=== PATIENT | female | born 1955 | race Native Hawaiian/Other Pacific Islander ===

== ENCOUNTER 2017-10-26 22:39 | Inpatient (IN) | payer OTHER ==
--- NOTE | 2017-10-26 22:55 | C.PDOC ---
History Of Present Illness 62 yo female, hx of htn, hld, ckd, sent by pmd for high k. as per pt had lab work few days back , K 7.5 with increasing cr. sent by pmd. no currentl complaints. no pain fever abd pain. pt still makes urine. Time Seen by Provider: 10/26/17 22:49 Chief Complaint (Nursing): Medical Clearance Past Medical History Vital Signs: Last Vital Signs Temp 98.2 F 10/27/17 08:53 Pulse 82 10/27/17 08:53 Resp 20 10/27/17 08:53 BP 158/72 H 10/27/17 08:53 Pulse Ox 99 10/27/17 08:53 - Medical History PMH: Bronchitis, HTN, Chronic Kidney Disease Family History: States: Unknown Family Hx - Social History Hx Tobacco Use: No Hx Alcohol Use: Yes Hx Substance Use: No - Immunization History Hx Tetanus Toxoid Vaccination: Yes Hx Influenza Vaccination: Yes Hx Pneumococcal Vaccination: No ED Course And Treatment - Laboratory Results Result Diagrams: 10/26/17 23:11 10/27/17 09:00 O2 Sat by Pulse Oximetry: 99 Medical Decision Making Medical Decision Making: reported hyperk wiht increasing cr - labs pending ekg nsr 71 no peaked t, normal intervals Disposition - Disposition Disposition: HOSPITALIZED Disposition Time: 01:00 Condition: STABLE - Clinical Impression Clinical Impression: Acute kidney injury superimposed on chronic kidney disease, Hyperkalemia Decision To Admit - Pt Status Changed To: Hospital Disposition Of: Inpatient - Admit Certification Admit to Inpatient:: After my assessment, the patient will require hospitalization for at least two midnights. This is because of the severity of symptoms shown, intensity of services needed, and/or the medical risk in this patient being treated as an outpatient. - InPatient: Physician Admission Certification: I certify that this patient requires 2 or more midnights of care for the following reason:: pt wih hyperk needs repeat labs and renal - . Bed Request Type: Telemetry Admitting Physician: Destiny Osullivan Patient Diagnosis: Acute kidney injury superimposed on chronic kidney disease, Hyperkalemia
[2017-10-26 23:16] LABS: BASO # 0.1 K/uL (0.0-0.2); BASO % 0.9 % (0.0-2.0); EOS # 0.4 K/uL (0.0-0.7); EOS % 5.5 % (0.0-4.0); HEMOGLOBIN 9.4 g/dL (11.0-16.0); LYMPH # 2.6 K/uL (1.0-4.3); LYMPH % 33.9 % (20.0-40.0); MEAN CELL VOLUME 93.5 fL (81.0-99.0); MEAN CORPUSCULAR HEMOGLOBIN 30.8 pg (27.0-31.0); MEAN CORPUSCULAR HGB CONC 32.9 g/dL (33.0-37.0); MEAN PLATELET VOLUME 8.6 fL (7.2-11.7); MONO # 0.5 K/uL (0.0-0.8); MONO % 5.9 % (0.0-10.0); NEUT # 4.2 K/uL (1.8-7.0); NEUT % 53.8 % (50.0-75.0); NRBC % 0.1 % (0.0-2.0); RBC 3.05 Mil/uL (3.80-5.20); RED CELL DISTRIBUTION WIDTH 14.1 % (11.5-14.5); WHITE BLOOD COUNT 7.8 K/uL (4.8-10.8)
[2017-10-26 23:33] LABS: INR 0.9; PROTHROMBIN TIME 10.4 SECONDS (9.7-12.2)
[2017-10-27] MEDS ORDERED: Dextrose 50% SYRINGE Inj (50 ml) IV STA (00:21)
[2017-10-27] MEDS ORDERED: (Novolin R) Insulin Human Regular 100 units/ml vial IV STA (00:21)
[2017-10-27 00:22] LABS: ALB/GLOB RATIO 1.1 (1.0-2.1); ALBUMIN 4.4 g/dL (3.5-5.0); CALCIUM 8.7 mg/dl (8.6-10.4)
[2017-10-27] MEDS ORDERED: Sod Polystyrene Sulf 15 gm/60 ml Susp PO ONE (00:22)
[2017-10-27] MEDS ORDERED: (Novolin R) Insulin Human Regular 100 units/ml vial ONE (00:36)
[2017-10-27] MEDS ORDERED: Dextrose 50% VIAL Inj (50 ml) IV ONE (00:36)
--- NOTE | 2017-10-27 00:43 | CP.PCM.HP ---
History of Present Illness - History of Present Illness History of Present Illness: 62 y.o. 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 Present on Admission - Present on Admission Any Indicators Present on Admission: No History of DVT/PE: No History of Uncontrolled Diabetes: No Urinary Catheter: No Decubitus Ulcer Present: No Review of Systems - Constitutional Constitutional: absent: Anorexia, Chills, Weight Loss, Weakness - EENT Eyes: absent: Blurred Vision, Other Visual Disturbances Ears: absent: Ear Pain Nose/Mouth/Throat: absent: Nasal Congestion - Cardiovascular Cardiovascular: absent: Chest Pain, Dyspnea, Rapid Heart Rate, Slow Heart Rate, Syncope - Respiratory Respiratory: absent: Cough, Hemoptysis, Dyspnea on Exertion - Gastrointestinal Gastrointestinal: absent: Abdominal Pain, Constipation, Cramping, Diarrhea, Vomiting - Genitourinary Genitourinary: absent: Difficulty Urinating, Hematuria, Bladder Distension - Musculoskeletal Musculoskeletal: absent: Abnormal Gait, Atrophy, Numbness - Integumentary Integumentary: absent: Bleeding Lesions, Rash, Skin Ulcer, Sores - Neurological Neurological: absent: Abnormal Gait, Abnormal Hearing, Abnormal Speech, Behavioral Changes, Convulsions, Disequilibrium - Psychiatric Psychiatric: absent: Behavioral Changes, Confusion, Depression - Endocrine Endocrine: absent: Polydipsia, Polyphagia, Polyuria - Hematologic/Lymphatic Hematologic: absent: Easy Bleeding, Easy Bruising Past Patient History - Infectious Disease Hx of Infectious Diseases: None - Past Medical History & Family History Past Medical History?: Yes - Past Social History Smoking Status: Never Smoked Chewing Tobacco Use: No Cigar Use: No Alcohol: Social Home Situation {Lives}: With Family - CARDIAC Hx Hypertension: Yes - PULMONARY Hx Bronchitis: Yes - NEUROLOGICAL Hx Neurological Disorder: No - HEENT Hx HEENT Problems: Yes Other/Comment: wear eyeglasse for poor vision - RENAL Hx Chronic Kidney Disease: Yes - ENDOCRINE/METABOLIC Hx Endocrine Disorders: No - HEMATOLOGICAL/ONCOLOGICAL Hx Blood Disorders: No - INTEGUMENTARY Hx Dermatological Problems: No - MUSCULOSKELETAL/RHEUMATOLOGICAL Hx Musculoskeletal Disorders: Yes Hx Falls: Yes (4YRS AGO) - GASTROINTESTINAL Hx Gastrointestinal Disorders: No - GENITOURINARY/GYNECOLOGICAL Hx Genitourinary Disorders: No - PSYCHIATRIC Hx Substance Use: No - SURGICAL HISTORY Hx Surgeries: Yes Hx Tubal Ligation: Yes Other/Comment: fibroadenoma left and right surgey - ANESTHESIA Hx Anesthesia: Yes Hx Anesthesia Reactions: No Meds Allergies/Adverse Reactions: Allergies Allergy/AdvReac Type Severity Reaction Status Date / Time Penicillins Allergy RASH Verified 10/26/17 22:48 Physical Exam - Constitutional Appears: Non-toxic, No Acute Distress - Head Exam Head Exam: ATRAUMATIC, NORMOCEPHALIC - Eye Exam Eye Exam: Normal appearance. absent: Nystagmus - ENT Exam ENT Exam: Mucous Membranes Moist - Neck Exam Neck exam: Positive for: Full Rom. Negative for: Tenderness - Respiratory Exam Respiratory Exam: Clear to Auscultation Bilateral, NORMAL BREATHING PATTERN - Cardiovascular Exam Cardiovascular Exam: REGULAR RHYTHM, Systolic Murmur - GI/Abdominal Exam GI & Abdominal Exam: Normal Bowel Sounds, Soft. absent: Tenderness - Extremities Exam Extremities exam: Positive for: normal inspection. Negative for: full ROM, joint swelling, pedal edema, tenderness - Neurological Exam Neurological exam: Alert, Normal Gait, Oriented x3, Reflexes Normal - Skin Skin Exam: Intact, Normal Color Results - Vital Signs Recent Vital Signs: Last Vital Signs Temp 97.8 F 10/26/17 22:43 Pulse 73 10/26/17 22:43 Resp 18 10/26/17 22:43 BP 186/65 H 10/26/17 22:43 Pulse Ox 99 10/26/17 23:28 - Labs Result Diagrams: 10/26/17 23:11 10/27/17 09:00 Labs: Laboratory Results - last 24 hr 10/26/17 10/26/17 10/26/17 23:11 23:23 23:59 WBC 7.8 RBC 3.05 L Hgb 9.4 L Hct 28.5 L MCV 93.5 MCH 30.8 MCHC 32.9 L RDW 14.1 Plt Count 224 MPV 8.6 Neut % (Auto) 53.8 Lymph % (Auto) 33.9 [place] % (Auto) 5.9 Eos % (Auto) 5.5 H Baso % (Auto) 0.9 Neut # (Auto) 4.2 Lymph # (Auto) 2.6 [place] # (Auto) 0.5 Eos # (Auto) 0.4 Baso # (Auto) 0.1 PT 10.4 INR 0.9 APTT 40 H Sodium 136 Potassium 6.4 H* D Chloride 107 Carbon Dioxide 16 L Anion Gap 20 BUN 56 H Creatinine 4.5 H Est GFR ( Amer) 12 Est GFR (Non-Af Amer) 10 Random Glucose 92 Calcium 8.7 Magnesium 2.2 Total Bilirubin 0.3 AST 23 ALT 19 Alkaline Phosphatase 68 Total Protein 8.6 H Albumin 4.4 Globulin 4.2 H Albumin/Globulin Ratio 1.1 Assessment & Plan - Assessment and Plan (Free Text) Assessment: Patient with acute renal Failure over Chronic- with Hyperkalemia To control potassium currently, EKG no T tenting- will admit to tlemetry Discussion with renal = further evaluation and management ARBS to be discontinued to hydralazine for potassium control BP control Continue Statin will change allopurinol to uloric for hyperuricemia Anemia on Iron SOB heart murmur abn EKG - will do echo, discussed with cardio Dr Ray further eval [email or web address]
[2017-10-27] MEDS ORDERED: Sod Polystyrene Sulf 15 gm/60 ml Susp ONE (00:55)
[2017-10-27 02:06] LABS: HCG,QUALITATIVE URINE NEGATIVE (NEGATIVE)
[2017-10-27 02:08] LABS: URINE BILIRUBIN NEGATIVE (NEGATIVE); URINE BLOOD 1+ (NEGATIVE); URINE CLARITY Clear (Clear); URINE COLOR Colorless (YELLOW); URINE GLUCOSE (UA) 1+ mg/dL (Normal); URINE LEUKOCYTE ESTERASE NEG Leu/uL (Negative); URINE PROTEIN 2+ mg/dL (NEGATIVE); URINE UROBILINOGEN NORMAL mg/dL (0.2-1.0)
[2017-10-27] MEDS: Sodium Bicarbonate 8.4% 150 MEQ in Dextrose 5% In Water 1,000 ML IV SCH (09:00)
[2017-10-27 09:40] LABS: CALCIUM 8.5 mg/dl (8.6-10.4)
[2017-10-27] MEDS: Pantoprazole 40 mg EC Tab PO SCH (09:54)
--- NOTE | 2017-10-27 10:22 | CP.PCM.CON ---
History of Present Illness - History of Present Illness History of Present Illness: pt is seen and examined, full consult is dictated #[id number] 1. htn 2. hyperkalemia 3. ckd-4 4.sec. HPTH c/w ivf d5w with 3 amps nahco3 at 70 ml/hr check pth intact, po4 level bmp in am Past Patient History - Infectious Disease Hx of Infectious Diseases: None - Past Medical History & Family History Past Medical History?: Yes - Past Social History Smoking Status: Never Smoked - CARDIAC Hx Hypertension: Yes - PULMONARY Hx Bronchitis: Yes - NEUROLOGICAL Hx Neurological Disorder: No - HEENT Hx HEENT Problems: Yes Other/Comment: wear eyeglasse for poor vision - RENAL Hx Chronic Kidney Disease: Yes - ENDOCRINE/METABOLIC Hx Endocrine Disorders: No - HEMATOLOGICAL/ONCOLOGICAL Hx Blood Disorders: No - INTEGUMENTARY Hx Dermatological Problems: No - MUSCULOSKELETAL/RHEUMATOLOGICAL Hx Musculoskeletal Disorders: Yes Hx Falls: Yes (4YRS AGO) - GASTROINTESTINAL Hx Gastrointestinal Disorders: No - GENITOURINARY/GYNECOLOGICAL Hx Genitourinary Disorders: No - PSYCHIATRIC Hx Substance Use: No - SURGICAL HISTORY Hx Surgeries: Yes Hx Tubal Ligation: Yes Other/Comment: fibroadenoma left and right surgey - ANESTHESIA Hx Anesthesia: Yes Hx Anesthesia Reactions: No Meds Allergies/Adverse Reactions: Allergies Allergy/AdvReac Type Severity Reaction Status Date / Time Penicillins Allergy RASH Verified 10/26/17 22:48 - Medications Medications: Current Medications Amlodipine Besylate (Norvasc) 10 mg PO DAILY [facility] Last Admin: 10/27/17 09:54 Dose: 10 mg Ferrous Sulfate (Feosol) 325 mg PO TID [facility] Last Admin: 10/27/17 09:54 Dose: 325 mg Sodium Bicarbonate 150 meq/ (Dextrose) 1,150 mls @ 70 mls/hr IV .[id number] [facility] Last Admin: 10/27/17 09:00 Dose: 70 mls/hr Losartan Potassium (Cozaar) 100 mg PO DAILY [facility] Last Admin: 10/27/17 09:54 Dose: 100 mg Pantoprazole Sodium (Protonix Ec Tab) 40 mg PO DAILY [facility] Last Admin: 10/27/17 09:54 Dose: 40 mg Results - Vital Signs Recent Vital Signs: Last Vital Signs Temp 98.2 F 10/27/17 08:53 Pulse 82 10/27/17 08:53 Resp 20 10/27/17 08:53 BP 158/72 H 10/27/17 08:53 Pulse Ox 99 10/27/17 08:53 - Labs Result Diagrams: 10/26/17 23:11 10/27/17 09:00 Labs: Laboratory Results - last 24 hr 10/26/17 10/26/17 10/26/17 23:11 23:23 23:59 WBC 7.8 RBC 3.05 L Hgb 9.4 L Hct 28.5 L MCV 93.5 MCH 30.8 MCHC 32.9 L RDW 14.1 Plt Count 224 MPV 8.6 Neut % (Auto) 53.8 Lymph % (Auto) 33.9 [place] % (Auto) 5.9 Eos % (Auto) 5.5 H Baso % (Auto) 0.9 Neut # (Auto) 4.2 Lymph # (Auto) 2.6 [place] # (Auto) 0.5 Eos # (Auto) 0.4 Baso # (Auto) 0.1 PT 10.4 INR 0.9 APTT 40 H Sodium 136 Potassium 6.4 H* D Chloride 107 Carbon Dioxide 16 L Anion Gap 20 BUN 56 H Creatinine 4.5 H Est GFR ( Amer) 12 Est GFR (Non-Af Amer) 10 POC Glucose (mg/dL) Random Glucose 92 Calcium 8.7 Magnesium 2.2 Ferritin Total Bilirubin 0.3 AST 23 ALT 19 Alkaline Phosphatase 68 Total Protein 8.6 H Albumin 4.4 Globulin 4.2 H Albumin/Globulin Ratio 1.1 Urine Color Urine Clarity Urine pH Ur Specific [place] Urine Protein Urine Glucose (UA) Urine Ketones Urine Blood Urine Nitrate Urine Bilirubin Urine Urobilinogen Ur Leukocyte Esterase Urine WBC (Auto) Urine RBC (Auto) Urine HCG, Qual 10/27/17 10/27/17 10/27/17 01:03 01:32 01:33 WBC RBC Hgb Hct MCV MCH MCHC RDW Plt Count MPV Neut % (Auto) Lymph % (Auto) [place] % (Auto) Eos % (Auto) Baso % (Auto) Neut # (Auto) Lymph # (Auto) [place] # (Auto) Eos # (Auto) Baso # (Auto) PT INR APTT Sodium Potassium Chloride Carbon Dioxide Anion Gap BUN Creatinine Est GFR ( Amer) Est GFR (Non-Af Amer) POC Glucose (mg/dL) 66 64 L Random Glucose Calcium Magnesium Ferritin 153.0 Total Bilirubin AST ALT Alkaline Phosphatase Total Protein Albumin Globulin Albumin/Globulin Ratio Urine Color Urine Clarity Urine pH Ur Specific [place] Urine Protein Urine Glucose (UA) Urine Ketones Urine Blood Urine Nitrate Urine Bilirubin Urine Urobilinogen Ur Leukocyte Esterase Urine WBC (Auto) Urine RBC (Auto) Urine HCG, Qual 10/27/17 10/27/17 10/27/17 01:54 06:22 07:39 WBC RBC Hgb Hct MCV MCH MCHC RDW Plt Count MPV Neut % (Auto) Lymph % (Auto) [place] % (Auto) Eos % (Auto) Baso % (Auto) Neut # (Auto) Lymph # (Auto) [place] # (Auto) Eos # (Auto) Baso # (Auto) PT INR APTT Sodium Potassium Chloride Carbon Dioxide Anion Gap BUN Creatinine Est GFR ( Amer) Est GFR (Non-Af Amer) POC Glucose (mg/dL) 69 82 Random Glucose Calcium Magnesium Ferritin Total Bilirubin AST ALT Alkaline Phosphatase Total Protein Albumin Globulin Albumin/Globulin Ratio Urine Color Colorless Urine Clarity Clear Urine pH 7.0 Ur Specific [place] 1.005 Urine Protein 2+ H Urine Glucose (UA) 1+ Urine Ketones Negative Urine Blood 1+ H Urine Nitrate Negative Urine Bilirubin Negative Urine Urobilinogen Normal Ur Leukocyte Esterase Neg Urine WBC (Auto) 1 Urine RBC (Auto) 5 H Urine HCG, Qual Negative 10/27/17 09:00 WBC RBC Hgb Hct MCV MCH MCHC RDW Plt Count MPV Neut % (Auto) Lymph % (Auto) [place] % (Auto) Eos % (Auto) Baso % (Auto) Neut # (Auto) Lymph # (Auto) [place] # (Auto) Eos # (Auto) Baso # (Auto) PT INR APTT Sodium 140 Potassium 5.0 Chloride 110 H Carbon Dioxide 18 L Anion Gap 17 BUN 56 H Creatinine 4.3 H Est GFR ( Amer) 13 Est GFR (Non-Af Amer) 10 POC Glucose (mg/dL) Random Glucose 84 Calcium 8.5 L Magnesium Ferritin Total Bilirubin AST ALT Alkaline Phosphatase Total Protein Albumin Globulin Albumin/Globulin Ratio Urine Color Urine Clarity Urine pH Ur Specific [place] Urine Protein Urine Glucose (UA) Urine Ketones Urine Blood Urine Nitrate Urine Bilirubin Urine Urobilinogen Ur Leukocyte Esterase Urine WBC (Auto) Urine RBC (Auto) Urine HCG, Qual
[2017-10-27] MEDS ORDERED: Epoetin Alfa 10,000 unit/ml Dialysis SC ONE (10:24)
--- NOTE | 2017-10-27 12:30 | US ---
HISTORY: renal failure and renal failure COMPARISON: None. TECHNIQUE: Sonographic evaluation of the abdomen. FINDINGS: LIVER: Measures 13.8 cm. Normal echogenicity of the liver parenchyma. No mass. No intrahepatic bile duct dilatation. GALLBLADDER: No calculus. Multiple small polyps, largest 11 mm with demonstrable vascularity. No mural thickening. Negative sonographic Kirby sign. COMMON BILE DUCT: Measures 5 mm. No stones. No dilatation. PANCREAS: Unremarkable as visualized. No mass. No ductal dilatation. RIGHT KIDNEY: Measures 7.0cm. Diffusely increased cortical echogenicity. Mid renal cortical cyst, 1.1 x 1.4 x 1.5 cm. No hydronephrosis. No solid mass. LEFT KIDNEY: Measures 8.3cm. Diffusely increased cortical echogenicity. 2 renal cortical cysts, 2.0 x 2.3 x 2.3 cm and 1.3 x 1.5 x 1.8 cm. Nonobstructing mid left renal calculus, 6 mm greatest dimension. No hydronephrosis. SPLEEN: Normal in size and contour. No mass. AORTA: No aneurysmal dilatation. IVC: Unremarkable. OTHER FINDINGS: None. IMPRESSION: Diffusely increased renal cortical echogenicity and renal atrophy consistent with chronic renal disease. Bilateral renal cysts. Possibly dialysis related. Nonobstructing 6 mm left renal calculus. Multiple gallbladder polyps, largest 11 mm.
[2017-10-27 14:22] LABS: IRON 47 ug/dL (37-170)
[2017-10-27 14:31] LABS: % IRON SATURATION 18 (20-55); TOTAL IRON BINDING CAPACITY 253 ug/dL (250-450)
--- NOTE | 2017-10-27 22:54 | CP.PCM.CON ---
History of Present Illness - History of Present Illness History of Present Illness: 62 F with hx of CKD (Baseline Cr 1.9) admitted with Acute of on Chronic renal failure of Cr >4 Patient has HTN and hyperglycemia C/O exertional dyspnea Check ECHO, TSH and ROMIs will follow Past Patient History - Infectious Disease Hx of Infectious Diseases: None - Past Medical History & Family History Past Medical History?: Yes - Past Social History Smoking Status: Never Smoked Chewing Tobacco Use: No Cigar Use: No Alcohol: Social Home Situation {Lives}: With Family - CARDIAC Hx Hypertension: Yes - PULMONARY Hx Bronchitis: Yes - NEUROLOGICAL Hx Neurological Disorder: No - HEENT Hx HEENT Problems: Yes Other/Comment: wear eyeglasse for poor vision - RENAL Hx Chronic Kidney Disease: Yes - ENDOCRINE/METABOLIC Hx Endocrine Disorders: No - HEMATOLOGICAL/ONCOLOGICAL Hx Blood Disorders: No - INTEGUMENTARY Hx Dermatological Problems: No - MUSCULOSKELETAL/RHEUMATOLOGICAL Hx Musculoskeletal Disorders: Yes Hx Falls: Yes (4YRS AGO) - GASTROINTESTINAL Hx Gastrointestinal Disorders: No - GENITOURINARY/GYNECOLOGICAL Hx Genitourinary Disorders: No - PSYCHIATRIC Hx Substance Use: No - SURGICAL HISTORY Hx Surgeries: Yes Hx Tubal Ligation: Yes Other/Comment: fibroadenoma left and right surgey - ANESTHESIA Hx Anesthesia: Yes Hx Anesthesia Reactions: No Meds Allergies/Adverse Reactions: Allergies Allergy/AdvReac Type Severity Reaction Status Date / Time Penicillins Allergy RASH Verified 10/26/17 22:48 - Medications Medications: Current Medications Amlodipine Besylate (Norvasc) 10 mg PO DAILY [facility] Last Admin: 10/27/17 09:54 Dose: 10 mg Ferrous Sulfate (Feosol) 325 mg PO TID [facility] Last Admin: 10/27/17 17:03 Dose: 325 mg Hydralazine HCl (Apresoline) 10 mg PO QID [facility] Last Admin: 10/27/17 22:04 Dose: 10 mg Sodium Bicarbonate 150 meq/ (Dextrose) 1,150 mls @ 70 mls/hr IV .[id number] [facility] Last Admin: 10/27/17 09:00 Dose: 70 mls/hr Pantoprazole Sodium (Protonix Ec Tab) 40 mg PO DAILY [facility] Last Admin: 10/27/17 09:54 Dose: 40 mg Results - Vital Signs Recent Vital Signs: Last Vital Signs Temp 98.0 F 10/27/17 16:31 Pulse 65 10/27/17 16:31 Resp 20 10/27/17 16:31 BP 171/78 H 10/27/17 16:31 Pulse Ox 99 10/27/17 16:31 - Labs Result Diagrams: 10/26/17 23:11 10/27/17 09:00 Labs: Laboratory Results - last 24 hr 10/26/17 10/26/17 10/26/17 23:11 23:23 23:59 WBC 7.8 RBC 3.05 L Hgb 9.4 L Hct 28.5 L MCV 93.5 MCH 30.8 MCHC 32.9 L RDW 14.1 Plt Count 224 MPV 8.6 Neut % (Auto) 53.8 Lymph % (Auto) 33.9 [place] % (Auto) 5.9 Eos % (Auto) 5.5 H Baso % (Auto) 0.9 Neut # (Auto) 4.2 Lymph # (Auto) 2.6 [place] # (Auto) 0.5 Eos # (Auto) 0.4 Baso # (Auto) 0.1 PT 10.4 INR 0.9 APTT 40 H Sodium 136 Potassium 6.4 H* D Chloride 107 Carbon Dioxide 16 L Anion Gap 20 BUN 56 H Creatinine 4.5 H Est GFR ( Amer) 12 Est GFR (Non-Af Amer) 10 POC Glucose (mg/dL) Random Glucose 92 Calcium 8.7 Magnesium 2.2 Iron TIBC % Saturation Ferritin Total Bilirubin 0.3 AST 23 ALT 19 Alkaline Phosphatase 68 Total Protein 8.6 H Albumin 4.4 Globulin 4.2 H Albumin/Globulin Ratio 1.1 Urine Color Urine Clarity Urine pH Ur Specific [place] Urine Protein Urine Glucose (UA) Urine Ketones Urine Blood Urine Nitrate Urine Bilirubin Urine Urobilinogen Ur Leukocyte Esterase Urine WBC (Auto) Urine RBC (Auto) Urine HCG, Qual 10/27/17 10/27/17 10/27/17 01:03 01:32 01:33 WBC RBC Hgb Hct MCV MCH MCHC RDW Plt Count MPV Neut % (Auto) Lymph % (Auto) [place] % (Auto) Eos % (Auto) Baso % (Auto) Neut # (Auto) Lymph # (Auto) [place] # (Auto) Eos # (Auto) Baso # (Auto) PT INR APTT Sodium Potassium Chloride Carbon Dioxide Anion Gap BUN Creatinine Est GFR ( Amer) Est GFR (Non-Af Amer) POC Glucose (mg/dL) 66 64 L Random Glucose Calcium Magnesium Iron TIBC % Saturation Ferritin 153.0 Total Bilirubin AST ALT Alkaline Phosphatase Total Protein Albumin Globulin Albumin/Globulin Ratio Urine Color Urine Clarity Urine pH Ur Specific [place] Urine Protein Urine Glucose (UA) Urine Ketones Urine Blood Urine Nitrate Urine Bilirubin Urine Urobilinogen Ur Leukocyte Esterase Urine WBC (Auto) Urine RBC (Auto) Urine HCG, Qual 10/27/17 10/27/17 10/27/17 01:54 06:22 07:39 WBC RBC Hgb Hct MCV MCH MCHC RDW Plt Count MPV Neut % (Auto) Lymph % (Auto) [place] % (Auto) Eos % (Auto) Baso % (Auto) Neut # (Auto) Lymph # (Auto) [place] # (Auto) Eos # (Auto) Baso # (Auto) PT INR APTT Sodium Potassium Chloride Carbon Dioxide Anion Gap BUN Creatinine Est GFR ( Amer) Est GFR (Non-Af Amer) POC Glucose (mg/dL) 69 82 Random Glucose Calcium Magnesium Iron TIBC % Saturation Ferritin Total Bilirubin AST ALT Alkaline Phosphatase Total Protein Albumin Globulin Albumin/Globulin Ratio Urine Color Colorless Urine Clarity Clear Urine pH 7.0 Ur Specific [place] 1.005 Urine Protein 2+ H Urine Glucose (UA) 1+ Urine Ketones Negative Urine Blood 1+ H Urine Nitrate Negative Urine Bilirubin Negative Urine Urobilinogen Normal Ur Leukocyte Esterase Neg Urine WBC (Auto) 1 Urine RBC (Auto) 5 H Urine HCG, Qual Negative 10/27/17 10/27/17 10/27/17 09:00 12:00 14:01 WBC RBC Hgb Hct MCV MCH MCHC RDW Plt Count MPV Neut % (Auto) Lymph % (Auto) [place] % (Auto) Eos % (Auto) Baso % (Auto) Neut # (Auto) Lymph # (Auto) [place] # (Auto) Eos # (Auto) Baso # (Auto) PT INR APTT Sodium 140 Potassium 5.0 Chloride 110 H Carbon Dioxide 18 L Anion Gap 17 BUN 56 H Creatinine 4.3 H Est GFR ( Amer) 13 Est GFR (Non-Af Amer) 10 POC Glucose (mg/dL) 83 Random Glucose 84 Calcium 8.5 L Magnesium Iron 47 TIBC 253 % Saturation 18 L Ferritin Total Bilirubin AST ALT Alkaline Phosphatase Total Protein Albumin Globulin Albumin/Globulin Ratio Urine Color Urine Clarity Urine pH Ur Specific [place] Urine Protein Urine Glucose (UA) Urine Ketones Urine Blood Urine Nitrate Urine Bilirubin Urine Urobilinogen Ur Leukocyte Esterase Urine WBC (Auto) Urine RBC (Auto) Urine HCG, Qual 10/27/17 10/27/17 10/27/17 14:01 16:28 21:12 WBC RBC Hgb Hct MCV MCH MCHC RDW Plt Count MPV Neut % (Auto) Lymph % (Auto) [place] % (Auto) Eos % (Auto) Baso % (Auto) Neut # (Auto) Lymph # (Auto) [place] # (Auto) Eos # (Auto) Baso # (Auto) PT INR APTT Sodium Potassium Chloride Carbon Dioxide Anion Gap BUN Creatinine Est GFR ( Amer) Est GFR (Non-Af Amer) POC Glucose (mg/dL) 151 H 136 H Random Glucose Calcium Magnesium Iron TIBC % Saturation Ferritin 145.0 Total Bilirubin AST ALT Alkaline Phosphatase Total Protein Albumin Globulin Albumin/Globulin Ratio Urine Color Urine Clarity Urine pH Ur Specific [place] Urine Protein Urine Glucose (UA) Urine Ketones Urine Blood Urine Nitrate Urine Bilirubin Urine Urobilinogen Ur Leukocyte Esterase Urine WBC (Auto) Urine RBC (Auto) Urine HCG, Qual
--- NOTE | 2017-10-27 23:03 | CON ---
DATE:10/27/2017 LOCATION: The patient is located in room #565, bed A. REQUESTING PHYSICIAN: Destiny Osullivan MD REASON FOR EVALUATION: CKD 5 and also hyperkalemia, metabolic acidosis, anemia. HISTORY OF PRESENT ILLNESS: Mrs. 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 As per the patient she had a recent blood work done and found to have a potassium 7.2 and advised to go to the emergency room to repeat the potassium. Her repeat potassium is about 6.4 and the patient was admitted for further management. The patient denies any headache. Denies any dizziness. Denies any shortness of breath. Denies chest pain. No palpitation. No fever. No cough. No nausea, vomiting, or diarrhea. No urinary symptoms. The patient has complaints of swelling of the legs, on and off, after working. PAST MEDICAL HISTORY: Significant for hypertension, more than 12 years, chronic kidney disease with a baseline creatinine about 1.8 to 1.9 in [id number] and when she was admitted in 2015, her creatinine was around 2.3 to 2.5 and also hyperlipidemia. PAST SURGICAL HISTORY: Status post surgery for the fibroadenoma of the breast and also tubal ligation. ALLERGIES: Allergy to penicillin associated with rash and shortness of breath. SOCIAL HISTORY: Denies smoking. Occasional alcohol use socially and no drug abuse. PERSONAL HISTORY: She is and she has two children. FAMILY HISTORY: Both parents are and she has two brothers and three sisters, one sister had a kidney transplant and also positive for hypertension, diabetes. HOME MEDICATIONS: Include 1. Amlodipine 10 mg daily. 2. Benicar 40 mg p.o. daily. 3. Feosol 325 mg p.o. t.i.d. 4. Lipitor 10 mg p.o. daily. MEDICATIONS IN THE HOSPITAL: As of today, her medications in the hospital are: 1. Losartan 100 mg daily. 2. Feosol 325 mg p.o. t.i.d. 3. Amlodipine 10 mg daily. 4. Protonix 40 mg p.o. daily. 5. Sodium bicarb drip D5W with 3 ampules of sodium bicarb 150 mEq at 70 mL/hour. 6. Status post Kayexalate 30 g p.o. x1 dose. REVIEW OF SYSTEMS: Significant for hyperkalemia and occasional swelling of the legs. All other review of systems are reviewed and are negative. PHYSICAL EXAMINATION: VITAL SIGNS: As follows: Blood pressure 158/72, pulse 82, respirations 20, temperature 98.2, saturation 99%, height is 5 feet 4 inches and weight is 135 pounds. GENERAL: Mrs. Fernandez is a 62-year-old elderly [place] female, moderately built, moderately nourished, not in acute distress. HEENT: Pupils are normal and reactive to light and accommodation. Conjunctivae pink. Sclerae anicteric. Tongue is moist and trachea is midline. LUNGS: Symmetric on both sides. Bilateral breath sounds present. Clear on auscultation. CVS: [place] at the fifth intercostal space, midclavicular area. S1, S2 audible. No murmur or gallop. ABDOMEN: Normal in appearance. Soft, tympanic. No guarding. No rigidity. No hepatosplenomegaly. [employer]PERATOR: The patient is alert, awake, oriented x3. Nonfocal examination. Cranial nerves II-XII grossly intact. Sensory and motor system is within normal limits. EXTREMITIES: No cyanosis, no clubbing, no edema. LABORATORY DATA: Include as follows: as of 10/26/2017, WBC 7.8, hemoglobin 9.4, hematocrit is 28.5, platelets 224. PT 10.4, PTT 40 and sodium is 136, potassium 6.4, chloride 107, CO2 of 16, BUN 56, creatinine 4.5 and GFR is 10, glucose 92, calcium 8.7. Total bili 0.3. AST 23, ALT 19, total bili 0.3, magnesium 2.2, alkaline phosphatase 68, total protein 8.6, albumin is 2.4. Other laboratory data, urinalysis, urine is colorless, clear, pH 7, specific gravity 1.005, protein 2+, glucose 1+, ketones negative, blood 1+, nitrites negative, bilirubin negative, urobilinogen normal, leukocyte esterase negative, wbc's 1, rbc's 5. Beta hCG is negative. Repeat BMP as of this morning 10/27/2017, sodium 140, potassium is 5, chloride 110, CO2 of 18, BUN 56, creatinine 4.3, glucose 84, calcium 8.5 and the other laboratory data from the previous visit as of 03/01/2016, PTH intact level is 225.9 and ANCA was negative and anti-GBM antibody was negative also and other serology, hepatitis B surface antigen is negative. Hepatitis B surface antibody is positive and hepatitis C antibody is negative as of 02/29/2016 and BELKYS is positive, 1:180 homogeneous pattern and C3 was 89 and C4 was 26.5. Urinalysis as of 02/28/2016, straw color, clear, pH 6, specific gravity 1.009, protein 2+, glucose normal, ketones negative, blood 2+, nitrites negative, bilirubin negative, urobilinogen normal, leukocyte esterase negative, wbc's less than 1, rbc's 25, bacteria rare. Ultrasound of the kidneys as of 02/29/2016, right kidney 9.1 cm and diffuse increase cortical echogenicity. No calculus, hydronephrosis. Simple cyst in the lower pole 9 x 9 x 11 mm and left kidney measures 9.3 cm and there is diffusely increased cortical echogenicity. No calculus, hydronephrosis. Simple cyst the mid left kidney 2.4 x 2.4 x 2.7 cm and minimally complex cyst with thin septation in the mid left kidney 2 x 2.1 x 2.3 cm. Laboratory data as of 02/28/2016, her creatinine is 2.5. as of 03/02/2016 creatinine 2.5. As of 03/01/2016, serum creatinine 2.6, IMPRESSION: Bilateral renal cysts, diffusely increased renal cortical echogenicity bilaterally, consistent medical renal disease. 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 1. Hypertension. Most likely essential hypertension. Blood pressure is slightly high. Continue Norvasc 10 mg and consider to discontinue Benicar, discontinue losartan at this time due to hyperkalemia. 2. Metabolic acidosis secondary to renal failure. 3. Anemia secondary to chronic kidney disease 5. 4. Secondary hyperparathyroidism. PLAN: We will check PTH and phosphorus level again and check iron TIBC, ferritin, stool for occult blood and repeat BELKYS titers also and check 24-hour urine protein, creatinine, and creatinine clearance. The patient will need AV fistula placement if she agrees, the patient also discussed about the transplant and she is not interested at the transplant at this time. Consider the AV fistula placement, avoid IV lines and IV blood pressure on the nondominant arm for the future AV fistula placement. If the patient agrees, consider vascular surgery for the AV fistula. We will give Epogen 10,000 units subcu x1 dose and also we will continue IV fluids of D5W with 3 ampules of bicarb at 70 mL/hour and repeat CBC, CMP in a.m. We will add Nephrocaps 1 tablet daily and the patient may need outpatient sodium bicarb tablets after discharge. We will follow with you. Thank you for allowing me to participate in your patient's care. Angie Dawson MD [facility]
[2017-10-28] MEDS: Sodium Bicarbonate 8.4% 150 MEQ in Dextrose 5% In Water 1,000 ML IV SCH ×2 (02:22→02:36)
[2017-10-28 07:42] LABS: CK-MB 1.03 ng/mL (0.0-3.38); TROPONIN I 0.018 ng/mL (0.00-0.120)
[2017-10-28 08:24] VITALS: O2SAT 98
[2017-10-28] MEDS: Pantoprazole 40 mg EC Tab PO SCH (09:35)
--- NOTE | 2017-10-28 10:13 | CP.PCM.PN ---
Subjective - Date & Time of Evaluation Date of Evaluation: 10/28/17 Time of Evaluation: 09:00 - Subjective Subjective: PATIENT SEEN- NO CHEST PAIN NO URINARY COMPLAINTS, HAD BEEN SEEN BY RENAL- HAD DISCUSSIONN REGSRDING PLAN FOR DIALYSIS- WHICH SHEDOES NOT PLAN AT THIS TIME AWARE OF MEDICATION CHANGES BP ON THE HIGH SIDE- TO ADJUST MEDICATION = DISCUSSED WITH PATIENT OTHER TEST ONGOING DISCUSSION WITH RENAL Objective - Vital Signs/Intake and Output Vital Signs (last 24 hours): Temp Pulse Resp BP Pulse Ox 98.4 F 82 18 174/90 H 98 10/28/17 07:35 10/28/17 09:36 10/28/17 07:35 10/28/17 09:36 10/28/17 07:35 Intake and Output: 10/28/17 10/28/17 06:59 18:59 Intake Total 560 Balance 560 - Medications Medications: Current Medications Amlodipine Besylate (Norvasc) 10 mg PO DAILY [facility] Last Admin: 10/28/17 09:35 Dose: 10 mg Ferrous Sulfate (Feosol) 325 mg PO TID [facility] Last Admin: 10/28/17 09:35 Dose: 325 mg Heparin Sodium (Porcine) (Heparin) 5,000 units SC Q12 [facility] Sodium Bicarbonate 150 meq/ (Dextrose) 1,150 mls @ 70 mls/hr IV .[id number] [facility] Last Admin: 10/28/17 02:36 Dose: 70 mls/hr Pantoprazole Sodium (Protonix Ec Tab) 40 mg PO DAILY [facility] Last Admin: 10/28/17 09:35 Dose: 40 mg - Labs Labs: 10/26/17 23:11 10/27/17 09:00 PT 10.4 SECONDS (9.7-12.2) 10/26/17 23:23 INR 0.9 10/26/17 23:23 APTT 40 SECONDS (21-34) H 10/26/17 23:23 - Constitutional Appears: Non-toxic, No Acute Distress - Head Exam Head Exam: ATRAUMATIC, NORMOCEPHALIC - Eye Exam Eye Exam: Normal appearance. absent: Nystagmus - ENT Exam ENT Exam: Mucous Membranes Moist - Neck Exam Neck Exam: Full ROM. absent: Tenderness - Respiratory Exam Respiratory Exam: Clear to Ausculation Bilateral, NORMAL BREATHING PATTERN - Cardiovascular Exam Cardiovascular Exam: REGULAR RHYTHM, Murmur - GI/Abdominal Exam GI & Abdominal Exam: Soft, Normal Bowel Sounds. absent: Tenderness - Extremities Exam Extremities Exam: Full ROM, Pedal Edema - Neurological Exam Neurological Exam: Alert, Awake, Normal Gait, Oriented x3 - Skin Skin Exam: Intact, Normal Color Assessment and Plan - Assessment and Plan (Free Text) Assessment: PATIENT WITH HYPERTENSION ,AND RENAL FAILURE HYPERTENSION- NOT ON GOAL- TO ADJUST DOSAGES AND MEDICATION ACUTE RENAL FAILURE WITH HYPERKALEMIA POTASSIUM- IMPROVED AFTER KAYEXELATE RENAL WORK UP ONGOING PATIENT AWARE OF CONDITION AND PLAN
--- NOTE | 2017-10-28 13:07 | CP.PCM.PN ---
Subjective - Date & Time of Evaluation Date of Evaluation: 10/28/17 Time of Evaluation: 13:07 - Subjective Subjective: pt is seen and examined, follow up consult is dictated #[id number] Objective - Vital Signs/Intake and Output Vital Signs (last 24 hours): Temp Pulse Resp BP Pulse Ox 98.4 F 68 18 150/79 98 10/28/17 07:35 10/28/17 10:53 10/28/17 07:35 10/28/17 10:53 10/28/17 07:35 Intake and Output: 10/28/17 10/28/17 06:59 18:59 Intake Total 560 Balance 560 - Medications Medications: Current Medications Amlodipine Besylate (Norvasc) 10 mg PO DAILY [facility] Last Admin: 10/28/17 09:35 Dose: 10 mg Ferrous Sulfate (Feosol) 325 mg PO TID [facility] Last Admin: 10/28/17 09:35 Dose: 325 mg Heparin Sodium (Porcine) (Heparin) 5,000 units SC Q12 [facility] Last Admin: 10/28/17 10:54 Dose: Not Given Hydralazine HCl (Apresoline) 25 mg PO QID [facility] Sodium Bicarbonate 150 meq/ (Dextrose) 1,150 mls @ 70 mls/hr IV .[id number] [facility] Last Admin: 10/28/17 02:36 Dose: 70 mls/hr Pantoprazole Sodium (Protonix Ec Tab) 40 mg PO DAILY [facility] Last Admin: 10/28/17 09:35 Dose: 40 mg - Labs Labs: 10/26/17 23:11 10/27/17 09:00 PT 10.4 SECONDS (9.7-12.2) 10/26/17 23:23 INR 0.9 10/26/17 23:23 APTT 40 SECONDS (21-34) H 10/26/17 23:23
--- NOTE | 2017-10-28 15:12 | CP.PCM.PN ---
Subjective - Date & Time of Evaluation Date of Evaluation: 10/28/17 Time of Evaluation: 15:09 - Subjective Subjective: PATIENT IS ADMITTED FOR ACUTE RENAL INSUFFICIENCY DENIES CHEST PAIN /SOB NAUSEA OR VOMITING NO SIGN OF DISTRESS NOTED Objective - Vital Signs/Intake and Output Vital Signs (last 24 hours): Temp Pulse Resp BP Pulse Ox 98.4 F 68 18 150/79 98 10/28/17 07:35 10/28/17 10:53 10/28/17 07:35 10/28/17 10:53 10/28/17 07:35 Intake and Output: 10/28/17 10/28/17 06:59 18:59 Intake Total 560 560 Balance 560 560 - Medications Medications: Current Medications Amlodipine Besylate (Norvasc) 10 mg PO DAILY [facility] Last Admin: 10/28/17 09:35 Dose: 10 mg Ferrous Sulfate (Feosol) 325 mg PO TID [facility] Last Admin: 10/28/17 14:05 Dose: 325 mg Heparin Sodium (Porcine) (Heparin) 5,000 units SC Q12 [facility] Last Admin: 10/28/17 10:54 Dose: Not Given Hydralazine HCl (Apresoline) 25 mg PO QID [facility] Last Admin: 10/28/17 14:05 Dose: 25 mg Sodium Bicarbonate 150 meq/ (Dextrose) 1,150 mls @ 70 mls/hr IV .[id number] [facility] Last Admin: 10/28/17 02:36 Dose: 70 mls/hr Pantoprazole Sodium (Protonix Ec Tab) 40 mg PO DAILY [facility] Last Admin: 10/28/17 09:35 Dose: 40 mg - Labs Labs: 10/26/17 23:11 10/27/17 09:00 PT 10.4 SECONDS (9.7-12.2) 10/26/17 23:23 INR 0.9 10/26/17 23:23 APTT 40 SECONDS (21-34) H 10/26/17 23:23 Assessment and Plan - Assessment and Plan (Free Text) Assessment: PATIENT SEEN AND EXAMINED AT THE BEDSIDE LUNG SOUND CLEAR BTESY ECHO DONE BUT PATIENT WILL F/U WITH RESULT OUT PATIENT AT DR RENDON OFFICE TNI IS NEGATIVE DISCUSS WITH DR CONTRERAS AND DR RENDON WHO CLEAR PATIENT FOR DC FOLLOW UP WITH DR ALSTON IN 1-2 WEEK AT THE OFFICE ---CALL FOR APPOINTMENT FOLLOW UP WITH DR RENDON IN 1-2 WEEKS AT HIS OFFICE ---CALL FOR APPOINTMENT FOLLOW UP WITH DR CONTRERAS IN 1-2 WEEKS AT HIS OFFICE CALL FOR APPOINTMENT CONTINUE ALL YOUR HOME MEDICATION ORDER NEW PRESCRIPTION GIVEN APRESOLINE 25MG BY MOUTH FOUR TIMES A DAY ACTIVITY TOLERATED CALL DR ALSTON OR GO TO THE EMERGENCY ROOM IF SYMPTOMS RETURN OR WORSENING DISCUSS WITH PATIENT WHO AGREE AND VERBALIZED UNDERSTANDING
[2017-10-28 16:42] VITALS: PULSE 65
--- NOTE | 2017-10-28 17:26 | CP.PCM.DIS ---
Provider - Provider Date of Admission: 10/27/17 00:26 Attending physician: Destiny Osullivan MD Time Spent in preparation of Discharge (in minutes): 30 Hospital Course - Lab Results Lab Results: Most Recent Lab Values WBC 7.8 K/uL (4.8-10.8) 10/26/17 23:11 RBC 3.05 Mil/uL (3.80-5.20) L 10/26/17 23:11 Hgb 9.4 g/dL (11.0-16.0) L 10/26/17 23:11 Hct 28.5 % (34.0-47.0) L 10/26/17 23:11 MCV 93.5 fL (81.0-99.0) 10/26/17 23:11 MCH 30.8 pg (27.0-31.0) 10/26/17 23:11 MCHC 32.9 g/dL (33.0-37.0) L 10/26/17 23:11 RDW 14.1 % (11.5-14.5) 10/26/17 23:11 Plt Count 224 K/uL (130-400) 10/26/17 23:11 MPV 8.6 fL (7.2-11.7) 10/26/17 23:11 Neut % (Auto) 53.8 % (50.0-75.0) 10/26/17 23:11 Lymph % (Auto) 33.9 % (20.0-40.0) 10/26/17 23:11 [place] % (Auto) 5.9 % (0.0-10.0) 10/26/17 23:11 Eos % (Auto) 5.5 % (0.0-4.0) H 10/26/17 23:11 Baso % (Auto) 0.9 % (0.0-2.0) 10/26/17 23:11 Neut # (Auto) 4.2 K/uL (1.8-7.0) 10/26/17 23:11 Lymph # (Auto) 2.6 K/uL (1.0-4.3) 10/26/17 23:11 [place] # (Auto) 0.5 K/uL (0.0-0.8) 10/26/17 23:11 Eos # (Auto) 0.4 K/uL (0.0-0.7) 10/26/17 23:11 Baso # (Auto) 0.1 K/uL (0.0-0.2) 10/26/17 23:11 PT 10.4 SECONDS (9.7-12.2) 10/26/17 23:23 INR 0.9 10/26/17 23:23 APTT 40 SECONDS (21-34) H 10/26/17 23:23 Sodium 140 mmol/L (132-148) 10/27/17 09:00 Potassium 5.0 mmol/L (3.6-5.2) 10/27/17 09:00 Chloride 110 mmol/L (98-107) H 10/27/17 09:00 Carbon Dioxide 18 mmol/L (22-30) L 10/27/17 09:00 Anion Gap 17 (10-20) 10/27/17 09:00 BUN 56 mg/dL (7-17) H 10/27/17 09:00 Creatinine 4.3 mg/dL (0.7-1.2) H 10/27/17 09:00 Est GFR ( Amer) 13 10/27/17 09:00 Est GFR (Non-Af Amer) 10 10/27/17 09:00 POC Glucose (mg/dL) 107 mg/dL (65-110) 10/28/17 11:07 Random Glucose 84 mg/dL (65-105) 10/27/17 09:00 Calcium 8.5 mg/dl (8.6-10.4) L 10/27/17 09:00 Magnesium 2.2 mg/dL (1.6-2.3) 10/26/17 23:59 Iron 47 ug/dL (37-170) 10/27/17 14:01 TIBC 253 ug/dL (250-450) 10/27/17 14:01 % Saturation 18 (20-55) L 10/27/17 14:01 Ferritin 145.0 ng/mL 10/27/17 14:01 Total Bilirubin 0.3 mg/dL (0.2-1.3) 10/26/17 23:59 AST 23 U/L (14-36) 10/26/17 23:59 ALT 19 U/L (9-52) 10/26/17 23:59 Alkaline Phosphatase 68 U/L (38-126) 10/26/17 23:59 Total Creatine Kinase 99 U/L (30-135) 10/28/17 07:07 CK-MB (Mass) 1.03 ng/mL (0.0-3.38) 10/28/17 07:07 Troponin I 0.0180 ng/mL (0.00-0.120) 10/28/17 07:07 NT-Pro-B Natriuret Pep 880 pg/mL (0-900) 10/28/17 07:07 Total Protein 8.6 g/dL (6.3-8.3) H 10/26/17 23:59 Albumin 4.4 g/dL (3.5-5.0) 10/26/17 23:59 Globulin 4.2 gm/dL (2.2-3.9) H 10/26/17 23:59 Albumin/Globulin Ratio 1.1 (1.0-2.1) 10/26/17 23:59 TSH 3rd Generation 2.68 mIU/L (0.46-4.68) 10/28/17 07:07 Urine Color Colorless (YELLOW) 10/27/17 01:54 Urine Clarity Clear (Clear) 10/27/17 01:54 Urine pH 7.0 (5.0-8.0) 10/27/17 01:54 Ur Specific Delta 1.005 (1.003-1.030) 10/27/17 01:54 Urine Protein 2+ mg/dL (NEGATIVE) H 10/27/17 01:54 Urine Glucose (UA) 1+ mg/dL (Normal) 10/27/17 01:54 Urine Ketones Negative mg/dL (NEGATIVE) 10/27/17 01:54 Urine Blood 1+ (NEGATIVE) H 10/27/17 01:54 Urine Nitrate Negative (NEGATIVE) 10/27/17 01:54 Urine Bilirubin Negative (NEGATIVE) 10/27/17 01:54 Urine Urobilinogen Normal mg/dL (0.2-1.0) 10/27/17 01:54 Ur Leukocyte Esterase Neg Jef/uL (Negative) 10/27/17 01:54 Urine WBC (Auto) 1 /hpf (0-5) 10/27/17 01:54 Urine RBC (Auto) 5 /hpf (0-3) H 10/27/17 01:54 Urine HCG, Qual Negative (NEGATIVE) 10/27/17 01:54 - Hospital Course Hospital Course: admitted for acute renal failure, and severe hyperkalemia withoit EKG changes, was given kayexelate seen by Renal patient does not agree for fistula Dialysis Seen by cardio for other EKG abnormalities and heartmurmur and SOB echo was done and to be followed up in clinic Discharge Exam - Head Exam Head Exam: ATRAUMATIC, NORMOCEPHALIC - Eye Exam Eye Exam: Normal appearance. absent: Nystagmus - ENT Exam ENT Exam: Mucous Membranes Moist - Neck Exam Neck exam: Full Rom - Respiratory Exam Respiratory Exam: Clear to PA & Lateral, NORMAL BREATHING PATTERN, UNREMARKABLE - GI/Abdominal Exam GI & Abdominal Exam: Normal Bowel Sounds, Soft. absent: Tenderness - Extremities Exam Extremities exam: full ROM, normal inspection - Neurological Exam Neurological exam: Alert, Normal Gait, Oriented x3 - Psychiatric Exam Psychiatric exam: Normal Affect, Normal Mood - Skin Skin Exam: Intact, Normal Color Discharge Plan - Discharge Medications Prescriptions: hydrALAZINE [Apresoline] 25 mg PO QID #120 tab - Follow Up Plan Condition: STABLE Disposition: HOME/ ROUTINE Instructions: Hyperkalemia (DC), Hydralazine, Chronic Kidney Disease (DC) Additional Instructions: FOLLOW UP WITH DR OSULLIVAN IN 1-2 WEEK AT THE OFFICE ---CALL FOR APPOINTMENT FOLLOW UP WITH DR RAY IN 1-2 WEEKS AT HIS OFFICE ---CALL FOR APPOINTMENT FOLLOW UP WITH DR CONTRERAS IN 1-2 WEEKS AT HIS OFFICE CALL FOR APPOINTMENT CONTINUE ALL YOUR HOME MEDICATION ORDER NEW PRESCRIPTION GIVEN APRESOLINE 25MG BY MOUTH FOUR TIMES A DAY ACTIVITY TOLERATED CALL DR OSULLIVAN OR GO TO THE EMERGENCY ROOM IF SYMPTOMS RETURN OR WORSENING Referrals: Lencho Ray MD [Staff Provider] - Destiny Osullivan MD [Medical Doctor] - Angie Contreras MD [Staff Provider] -
[2017-10-28 17:42] VITALS: BP 155/85; RESP 20; TEMP 98.5
--- NOTE | 2017-10-28 22:47 | CARD ---
APPROVED REPORT EXAM: Two-dimensional and M-mode echocardiogram with Doppler and color Doppler. Other Information Quality : GoodRhythm : INDICATION Murmur RISK FACTORS Hypertension Hyperlipidemia Diabetes 2D DIMENSIONS IVSd1.0 (0.7-1.1cm)LVDd5.5 (3.9-5.9cm) PWd1.0 (0.7-1.1cm)LVDs2.8 (2.5-4.0cm) FS (%) 49.7 %LVEF (%)80.5 (>50%) M-Mode DIMENSIONS RVDd2.22 (2.1-3.2cm)Left Atrium (MM)4.34 (2.5-4.0cm) IVSd1.49 (0.7-1.1cm)Aortic Root2.77 (2.2-3.7cm) LVDd5.10 (4.0-5.6cm)Aortic Cusp Exc.1.78 (1.5-2.0cm) PWd1.21 (0.7-1.1cm)FS (%) 50 % LVDs2.57 (2.0-3.8cm)LVEF (%)81 (>50%) Aortic Valve AI P 1/2 [id number] Mitral Valve MV E Meywyuoc08.1cm/sMV A Yrrcyuei151.3cm/sE/A ratio0.7 TDI E/Lateral E'0.0E/Medial E'0.0 Tricuspid Valve TR Peak Ejnbyjmx993ea/sTR Peak Gr.[id number] LEFT VENTRICLE The left ventricle is normal size. There is normal left ventricular wall thickness. The left ventricular function is normal. The left ventricular ejection fraction is within the normal range. There is normal LV segmental wall motion. Transmitral Doppler flow pattern is abnormal. ATRIA The left atrium is mildly dilated. The right atrium size is normal. MITRAL VALVE Mitral regurgitation is trace to mild. TRICUSPID VALVE There is mild to moderate tricuspid regurgitation. <Conclusion> Normal LV systolic function. Diastolic dysfunction. Borderline dilated LA. Trace AR. Trace MR. Mild to moderate TR.
--- NOTE | 2017-10-29 10:28 | PN ---
DATE: 10/28/2017 FOLLOWUP RENAL CONSULTATION LOCATION: The patient is located in room 565, bed A. REQUESTED BY: Destiny Osullivan MD REASON FOR FOLLOWUP: CKD 5, hypertension, and anemia. HISTORY OF PRESENT ILLNESS: Ms. 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 with past medical history significant for hypertension, secondary hyperparathyroidism, and CKD 3 with baseline creatinine of 2.5 in 02/29/2016, now admitted with worsening renal function and hyperkalemia. The patient is losartan and is status post treatment for hyperkalemia. The patient is feeling better, not in acute distress. Denies any headache or dizziness. Denies any chest pain or palpitation. Denies any fever or cough. No abdominal pain. No nausea, vomiting or diarrhea. PHYSICAL EXAMINATION: VITAL SIGNS: This morning, blood pressure of 150/79, pulse of 68, respirations of 20, temperature of 98.5, and saturations of 98%. Height 5 feet 4 inches and weight is 135 pounds. GENERAL: Ms. Fernandez is a 62-year-old elderly female, moderately built, moderately nourished, not in acute distress. HEENT: Pupils are normal and reactive to light and accommodation. Conjunctivae pink. Sclerae anicteric. Tongue is moist. Trachea is midline. LUNGS: Symmetric on both sides. Bilateral breath sounds present. Clear to auscultation. CARDIOVASCULAR: [place] at the fifth intercostal space, midclavicular line. S1 and S2 audible. No murmur or gallop. ABDOMEN: Normal in appearance. Soft, tympanic. No guarding. No rigidity. No hepatosplenomegaly. CENTRAL NERVOUS SYSTEM: The patient is alert, awake, and oriented x3. Nonfocal neuro examination. Cranial nerves II through XII grossly intact. Sensory and motor system is within normal limits. EXTREMITIES: No cyanosis, no clubbing, no edema. LABORATORY DATA: Include as follows: As of 10/27/2017, iron of 47, TIBC 253, saturation , and ferritin 145. CPK is 99 and CK-MB is 1.03. Troponin 0.018 and ProBNP is 880. TSH is 2.6. Other report, ultrasound of the kidneys as of 10/27/2017, right kidney is 7 cm and left kidney is 8.3 cm. Impression; diffuse increased cortical echogenicity and renal atrophy, consistent with chronic renal disease, bilateral renal cyst, possibly related to non-obstructing 6 mm left renal calculus, and multiple gallbladder polyps, largest one is 11 mm. ASSESSMENT AND PLAN: In summary, Ms. Fernandez is a 62-year-old elderly [place]ian female with a history of hypertension, and chronic kidney disease with baseline creatinine of about 2.5 in 02/2016 who was admitted with worsening renal function, hyperkalemia, and low hemoglobin and hematocrit. 1. Hypertension, most likely uncontrolled: Continue her medication of amlodipine 10 mg daily and hydralazine 25 mg p.o. four times a day and try to keep the blood pressure below 120 to 130 systolic. 2. Hyperlipidemia: Continue Lipitor 10 mg p.o. daily. 3. Anemia, most likely secondary to chronic kidney disease and mild iron deficiency anemia: Continue Feosol 325 mg p.o. t.i.d. 4. Secondary hyperparathyroidism, repeat PTH is pending. Discussed with the patient regarding possible kidney transplant and the hemodialysis access. The patient is not interested in both at this time. She want to follow an outpatient. The patient can be discharged from the renal standpoint and follow up in the office in one month. 5. 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 Thank you for allowing me to participate in your patient's care. Angie Dawson MD
== END 2017-10-28 17:15 | disposition home or self-care (01) | DRG 683 ==
LOC: C.ER 22:39 → C.9E 10-27 00:26 → C.5S 10-27 01:47
PROVIDERS: ADMIT Internal Medicine; ATTEND Internal Medicine
DX: N17.9 Acute kidney failure, unspecified (principal); E87.2 Acidosis; I12.0 Hypertensive chronic kidney disease with stage 5 chronic kidney disease or end stage renal disease; E87.5 Hyperkalemia; N25.81 Secondary hyperparathyroidism of renal origin; N18.5 Chronic kidney disease, stage 5; D63.1 Anemia in chronic kidney disease; E78.5 Hyperlipidemia, unspecified; H54.7 Unspecified visual loss; R73.9 Hyperglycemia, unspecified; N28.1 Cyst of kidney, acquired

== ENCOUNTER 2018-12-20 19:08 | Inpatient (IN) | payer OTHER ==
--- NOTE | 2018-12-20 19:31 | C.PDOC ---
History Of Present Illness 63-year-old female with a history of bronchitis, hypertension, and CKD presents to the emergency department for evaluation of abnormal labs. Patient was sent in by Dr. Osullivan for anemia; hemoglobin of 6.0, hyperkalemia 5.6, and creatinine 7.3. Patient notes all these labs were done as routine outpt blood work. She denies any current physical complaints at this time. Patient states that she was supposed to have done them a few months earlier but has been delaying it. Patient notes a family history of kidney issues and states that she is currently making good urine without any frequency, urgency, or dysuria. Patient denies abdominal pain, chest pain, shortness of breath, weakness, numbness, recent fall or trauma. Patient states that she is currently taking iron pills and her stool is always dark (not black) and she denies any bloody stool. Time Seen by Provider: 12/20/18 19:30 Chief Complaint (Nursing): Abnormal Labs History Per: Patient History/Exam Limitations: no limitations Onset/Duration Of Symptoms: Other (delaying for a few months) Past Medical History Reviewed: Historical Data, Nursing Documentation, Vital Signs Vital Signs: Last Vital Signs Temp 98.8 F 12/20/18 19:22 Pulse 84 12/20/18 19:22 Resp 18 12/20/18 19:22 BP 159/71 H 12/20/18 19:22 Pulse Ox 99 12/20/18 19:22 Primary Care Provider: Destiny Osullivan - Medical History PMH: Bronchitis, HTN, Chronic Kidney Disease Surgical History: No Surg Hx Family History: States: Other Other Family History: kidney issues - Social History Hx Tobacco Use: No Hx Alcohol Use: Yes Hx Substance Use: No - Immunization History Hx Tetanus Toxoid Vaccination: Yes Hx Influenza Vaccination: Yes Hx Pneumococcal Vaccination: No Review Of Systems Constitutional: Negative for: Fever, Chills, Weakness, Malaise Eyes: Negative for: Pain, Vision Change, Eyelid Inflammation ENT: Negative for: Ear Pain, Ear Discharge, Nose Pain, Nose Congestion, Mouth Pain Cardiovascular: Negative for: Chest Pain, Palpitations, Orthopnea, Edema, Light Headedness Respiratory: Negative for: Cough, Shortness of Breath, SOB with Excertion, Pleuritic Pain Gastrointestinal: Negative for: Nausea, Vomiting, Abdominal Pain, Diarrhea, Constipation, Melena, Hematochezia Genitourinary: Negative for: Dysuria, Frequency, Incontinence Musculoskeletal: Negative for: Neck Pain, Shoulder Pain, Arm Pain, Back Pain, Hand Pain, Leg Pain Skin: Negative for: Rash, Lesions, Jaundice Neurological: Negative for: Weakness, Numbness, Confusion, Altered Mental Status, Headache Psych: Negative for: Anxiety, Depression, Psychosis, Suicidal ideation Physical Exam - Physical Exam Appears: Well, Non-toxic, No Acute Distress Skin: Normal Color, Warm, Dry Head: Atraumatic, Normacephalic Eye(s): bilateral: Normal Inspection, PERRL, EOMI Ear(s): Bilateral: Normal Nose: Normal Oral Mucosa: Moist Tongue: Normal Appearing Lips: Normal Appearing Throat: Normal, No Erythema, No Exudate Neck: Normal, No Midline Cervical Tenderness, No Paracervical Tenderness, Supple, Other (no meningeal signs) Chest: Symmetrical, No Tenderness Cardiovascular: Rhythm Regular, No Murmur, No JVD Respiratory: Normal Breath Sounds, No Rales, No Rhonchi, No Wheezing Gastrointestinal/Abdominal: Soft, No Tenderness, No Guarding, No Rebound Back: Normal Inspection, No CVA Tenderness, No Vertebral Tenderness Extremity: Normal ROM Extremity: Bilateral: Atraumatic Neurological/Psych: Oriented x3, Normal Speech, Normal Cognition, No Cerebellar Signs, Normal Motor Gait: Steady Extremity: Right: No Drift, Left: No Drift ED Course And Treatment - Laboratory Results Result Diagrams: 12/20/18 19:55 12/20/18 19:55 O2 Sat by Pulse Oximetry: 99 (RA) Pulse Ox Interpretation: Normal Medical Decision Making Medical Decision Makin-year-old female with a history of bronchitis, hypertension, and CKD presents to the emergency department for evaluation of abnormal labs. Pt denies any physical complaints at this time. No fall or trauma or MVA. She notes dark stool, but not black or bloody. No fever, chillls or night sweats or infectious symptoms. Plan: Blood Bank Type and Screen EKG CMP Bloodwork Protonix 40mg IVP Occult Blood Stool Urinalysis Impression: Abnoral labs, anemia, hyperkalemia JAIDEN 19:57 Dr. Osullivan at bedside agrees to plan Patient consented for blood. Given dark stool, recommended bedside FOBT but patient notes wants staff to eventually "check her poop when i have a bowel movement." Endorsed to Dr. Osullivan who agrees with patient and reccomends ordering protonix now and she will f/u patient FOBT. 2032 Hgb 6.3 2u PRBC ordered. Pending EKG 2055 K: 5.3, 5.6 yesterday: HyperK cocktail ordered Per Dr. Osullivan we are to place consult to surgical team: Mike for possible dialysis catheter EK, nsr, no stemi. No signs of HyperK on EKG pt in NAD admitted to Dr. Osullivan's service: tele Disposition - Disposition Referrals: Destiny Osullivan MD [Medical Doctor] - Disposition Time: 20:57 Condition: STABLE Forms: [employer] (Wallisian) - Clinical Impression Clinical Impression: Hyperkalemia, Anemia, JAIDEN (acute kidney injury) - Scribe Statement The provider has reviewed the documentation as recorded by the Scribe (Zheng Renee) Provider Attestation: All medical record entries made by the Scribe were at my direction and personally dictated by me. I have reviewed the chart and agree that the record accurately reflects my personal performance of the history, physical exam, me dical decision making, and the department course for this patient. I have also personally directed, reviewed, and agree with the discharge instructions and disposition.
[2018-12-20 19:59] LABS: BASO % 0.6 % (0.0-2.0); EOS # 0.3 K/uL (0.0-0.7); EOS % 4.2 % (0.0-4.0); LYMPH % 15.5 % (20.0-40.0); MEAN CELL VOLUME 95.9 fL (81.0-99.0); MEAN CORPUSCULAR HEMOGLOBIN 31.8 pg (27.0-31.0); MEAN CORPUSCULAR HGB CONC 33.1 g/dL (33.0-37.0); MEAN PLATELET VOLUME 8.2 fL (7.2-11.7); MONO # 0.5 K/uL (0.0-0.8); MONO % 6.8 % (0.0-10.0); NEUT # 4.9 K/uL (1.8-7.0); NEUT % 72.9 % (50.0-75.0); RBC 1.97 Mil/uL (3.80-5.20); RED CELL DISTRIBUTION WIDTH 13.7 % (11.5-14.5); WHITE BLOOD COUNT 6.7 K/uL (4.8-10.8)
[2018-12-20 20:08] LABS: HEMOGLOBIN 6.3 g/dL (11.0-16.0)
[2018-12-20 20:15] LABS: PARTIAL THROMBOPLASTIN TIME 43.6 SECONDS (21-34); PROTHROMBIN TIME 10.8 SECONDS (9.7-12.2)
[2018-12-20 20:21] LABS: ALB/GLOB RATIO 1.3 (1.0-2.1); ALBUMIN 4.5 g/dL (3.5-5.0); CALCIUM 8.2 mg/dl (8.6-10.4)
[2018-12-20] MEDS ORDERED: (Novolin R) Insulin Human Regular 100 units/ml vial IVP ONE (20:51)
[2018-12-20] MEDS ORDERED: Albuterol 0.083% Inhal Sol (2.5 mg/3 mL) UD INH STA (20:51)
[2018-12-20] MEDS ORDERED: Dextrose 50% SYRINGE Inj (50 ml) IV STA (20:51)
--- NOTE | 2018-12-20 21:04 | CP.PCM.CON ---
History of Present Illness - History of Present Illness History of Present Illness: Vascular Surgery Consult note. Dr. Harman 63yo F with PMHx of HTN and Gout who was sent in by her PMD, Dr. Osullivan due to abnormal blood work. Patient with a baseline creatinine of 3.9, 1 year ago and now it is 8.5. She states that she was sent for possible dialysis. Vascular surgery consult was obtained for HD access. She denies any chest pain. No SOB. Denies any fevers or chills. Does still report making urine. No urinary compl aints. PMHx: HTN, Gout PSHx: bilateral breast fibroadenoma removal Family Hx: Non-Contributory Social Hx: Denies Tobacco use; Occasional ETOH use; Denies illicit drugs Allergy: PCNs Meds: Norvasc 10, Hydralazine 50tid Review of Systems - Review of Systems All systems: reviewed and no additional remarkable complaints except - Constitutional Constitutional: As Per HPI Past Patient History - Infectious Disease Hx of Infectious Diseases: None - Past Medical History & Family History Past Medical History?: Yes Past Family History: Reviewed and not pertinent - Past Social History Smoking Status: Never Smoked Alcohol: Occasional Drugs: Denies - CARDIAC Hx Hypertension: Yes - PULMONARY Hx Bronchitis: Yes - NEUROLOGICAL Hx Neurological Disorder: No - HEENT Hx HEENT Problems: Yes Other/Comment: wear eyeglasse for poor vision - RENAL Hx Chronic Kidney Disease: Yes - ENDOCRINE/METABOLIC Hx Endocrine Disorders: No - HEMATOLOGICAL/ONCOLOGICAL Hx Blood Disorders: No - INTEGUMENTARY Hx Dermatological Problems: No - MUSCULOSKELETAL/RHEUMATOLOGICAL Hx Musculoskeletal Disorders: Yes Hx Falls: Yes (4YRS AGO) Hx Gout: Yes - GASTROINTESTINAL Hx Gastrointestinal Disorders: No - GENITOURINARY/GYNECOLOGICAL Hx Genitourinary Disorders: No - PSYCHIATRIC Hx Substance Use: No - SURGICAL HISTORY Hx Surgeries: Yes Hx Tubal Ligation: Yes Other/Comment: fibroadenoma left and right surgey - ANESTHESIA Hx Anesthesia: Yes Hx Anesthesia Reactions: No Meds Allergies/Adverse Reactions: Allergies Allergy/AdvReac Type Severity Reaction Status Date / Time Penicillins Allergy RASH Verified 12/20/18 19:21 Physical Exam - Constitutional Appears: Well, Non-toxic, No Acute Distress - Head Exam Head Exam: ATRAUMATIC, NORMAL INSPECTION, NORMOCEPHALIC - Eye Exam Eye Exam: EOMI, Normal appearance. absent: Scleral icterus - ENT Exam ENT Exam: Mucous Membranes Moist - Respiratory Exam Respiratory Exam: NORMAL BREATHING PATTERN. absent: Accessory Muscle Use, Respiratory Distress - Cardiovascular Exam Cardiovascular Exam: absent: JVD - GI/Abdominal Exam GI & Abdominal Exam: Soft. absent: Distended, Firm, Guarding, Rebound, Tenderness - Extremities Exam Extremities exam: Positive for: normal inspection. Negative for: calf tenderness - Back Exam Back exam: NORMAL INSPECTION - Neurological Exam Neurological exam: Alert, Oriented x3 - Psychiatric Exam Psychiatric exam: Normal Affect, Normal Mood - Skin Skin Exam: Dry, Intact, Normal Color, Warm Results - Vital Signs Recent Vital Signs: Last Vital Signs Temp 98.8 F 12/20/18 19:22 Pulse 84 12/20/18 19:22 Resp 18 12/20/18 19:22 BP 159/71 H 12/20/18 19:22 Pulse Ox 99 12/20/18 20:59 - Labs Result Diagrams: 12/20/18 19:55 12/20/18 19:55 Labs: Laboratory Results - last 24 hr 12/20/18 12/20/18 12/20/18 19:55 19:55 19:55 WBC 6.7 RBC 1.97 L Hgb 6.3 L* D Hct 18.9 L MCV 95.9 D MCH 31.8 H MCHC 33.1 RDW 13.7 Plt Count 223 MPV 8.2 Neut % (Auto) 72.9 Lymph % (Auto) 15.5 L Hutchinson % (Auto) 6.8 Eos % (Auto) 4.2 H Baso % (Auto) 0.6 Neut # (Auto) 4.9 Lymph # (Auto) 1.0 Hutchinson # (Auto) 0.5 Eos # (Auto) 0.3 Baso # (Auto) 0.0 PT 10.8 INR 1.0 APTT 43.6 H Sodium 138 Potassium 5.3 H Chloride 104 Carbon Dioxide 16 L Anion Gap 23 H BUN 94 H Creatinine 8.5 H* D Est GFR ( Amer) 6 Est GFR (Non-Af Amer) 5 Random Glucose 175 H D Calcium 8.2 L Total Bilirubin 0.2 AST 23 ALT 19 Alkaline Phosphatase 68 Total Protein 8.1 Albumin 4.5 Globulin 3.6 Albumin/Globulin Ratio 1.3 Blood Type Blood Type Confirm 12/20/18 12/20/18 19:55 20:26 WBC RBC Hgb Hct MCV MCH MCHC RDW Plt Count MPV Neut % (Auto) Lymph % (Auto) Hutchinson % (Auto) Eos % (Auto) Baso % (Auto) Neut # (Auto) Lymph # (Auto) Hutchinson # (Auto) Eos # (Auto) Baso # (Auto) PT INR APTT Sodium Potassium Chloride Carbon Dioxide Anion Gap BUN Creatinine Est GFR ( Amer) Est GFR (Non-Af Amer) Random Glucose Calcium Total Bilirubin AST ALT Alkaline Phosphatase Total Protein Albumin Globulin Albumin/Globulin Ratio Blood Type B POSITIVE Blood Type Confirm B POSITIVE Assessment & Plan - Assessment and Plan (Free Text) Assessment: 63yo F with PMHx of HTN and gout here due to need for HD. Vascular surgery con sulted for access. Plan: - Will plan for OR for Permacath placement tomorrow, 5/12 AM - NPO past mn - Consent obtained and on chart - Will need repeat labs tomorrow AM - Anemia, will receive 2U PRBCs Further recs as per Dr. Ghazal Gan PGY2 surgery
[2018-12-20] MEDS ORDERED: (Novolin R) Insulin Human Regular 100 units/ml vial ONE (21:18)
[2018-12-20] MEDS ORDERED: Albuterol 0.083% Inhal Sol (2.5 mg/3 mL) UD ONE (21:18)
[2018-12-20] MEDS ORDERED: Dextrose 50% SYRINGE Inj (50 ml) ONE (21:18)
[2018-12-20] MEDS: Sodium Chloride 0.9% 1,000 ML IV SCH (22:11)
--- NOTE | 2018-12-20 23:19 | CP.PCM.HP ---
History of Present Illness - History of Present Illness History of Present Illness: 63 y.o.lady with PMH Hypertension CRI Anemia Hyperuricemia cholesterol Hyperglycemia was doing good- until she went for blood test- creatinine showed 7.3, hemoglobin 6 , patient was advised to go to ER for further management ROs- no chest pain, no cough no GI complaints, no fever no bleeding patient has intentional weight loss by changing lifestyle Social non smoker drinks socially lives with and children Family history positive for renal disease Present on Admission - Present on Admission Any Indicators Present on Admission: No History of DVT/PE: No History of Uncontrolled Diabetes: No Urinary Catheter: No Decubitus Ulcer Present: No Review of Systems - Constitutional Constitutional: Weight Loss. absent: Anorexia, Fever, Lethargy, Weakness - EENT Eyes: Other Visual Disturbances Nose/Mouth/Throat: absent: Nasal Congestion, Dental Pain, Sore Throat, Facial Pain - Breasts Breasts: Pain. absent: Mass - Cardiovascular Cardiovascular: absent: Chest Pain, Diaphoresis, Leg Edema, Palpitations, Syncope - Respiratory Respiratory: absent: Cough, Dyspnea - Gastrointestinal Gastrointestinal: absent: Abdominal Pain, Bloating, Constipation, Diarrhea, Vo miting - Genitourinary Genitourinary: absent: Difficulty Urinating, Hematuria, Urinary Hesitance - Menstruation Menstruation: Post Menopausal - Musculoskeletal Musculoskeletal: Numbness. absent: Arthralgias - Integumentary Integumentary: Bleeding Lesions, Rash, Skin Ulcer, Sores, Jaundice - Psychiatric Psychiatric: Behavioral Changes, Confusion. absent: Depression - Endocrine Endocrine: absent: Fatigue, Heat Intolorance, Polydipsia, Polyphagia - Hematologic/Lymphatic Hematologic: absent: Easy Bleeding, Easy Bruising Past Patient History - Infectious Disease Hx of Infectious Diseases: None - Past Medical History & Family History Past Medical History?: Yes Past Family History: Reviewed and not pertinent Pertinent Family History: patient has family history of renal disease - Past Social History Smoking Status: Never Smoked Alcohol: Occasional Drugs: Denies - CARDIAC Hx Hypertension: Yes - PULMONARY Hx Bronchitis: Yes - NEUROLOGICAL Hx Neurological Disorder: No - HEENT Hx HEENT Problems: Yes Other/Comment: wear eyeglasse for poor vision - RENAL Hx Chronic Kidney Disease: Yes - ENDOCRINE/METABOLIC Hx Endocrine Disorders: No - HEMATOLOGICAL/ONCOLOGICAL Hx Blood Disorders: No Hx Anemia: Yes - INTEGUMENTARY Hx Dermatological Problems: No - MUSCULOSKELETAL/RHEUMATOLOGICAL Hx Musculoskeletal Disorders: Yes Hx Falls: Yes (4YRS AGO) Hx Gout: Yes - GASTROINTESTINAL Hx Gastrointestinal Disorders: No - GENITOURINARY/GYNECOLOGICAL Hx Genitourinary Disorders: No - PSYCHIATRIC Hx Substance Use: No - SURGICAL HISTORY Hx Surgeries: Yes (breast fibroadenoma) Hx Tubal Ligation: Yes Other/Comment: fibroadenoma left and right surgey - ANESTHESIA Hx Anesthesia: Yes Hx Anesthesia Reactions: No Meds Allergies/Adverse Reactions: Allergies Allergy/AdvReac Type Severity Reaction Status Date / Time Penicillins Allergy RASH Verified 12/20/18 19:21 Results - Vital Signs Recent Vital Signs: Last Vital Signs Temp 98.8 F 12/20/18 19:22 Pulse 81 12/20/18 22:12 Resp 16 12/20/18 22:12 BP 148/73 12/20/18 22:12 Pulse Ox 98 12/20/18 22:12 - Labs Result Diagrams: 12/20/18 19:55 12/20/18 19:55 Labs: Laboratory Results - last 24 hr 12/20/18 12/20/18 12/20/18 19:55 19:55 19:55 WBC 6.7 RBC 1.97 L Hgb 6.3 L* D Hct 18.9 L MCV 95.9 D MCH 31.8 H MCHC 33.1 RDW 13.7 Plt Count 223 MPV 8.2 Neut % (Auto) 72.9 Lymph % (Auto) 15.5 L George % (Auto) 6.8 Eos % (Auto) 4.2 H Baso % (Auto) 0.6 Neut # (Auto) 4.9 Lymph # (Auto) 1.0 George # (Auto) 0.5 Eos # (Auto) 0.3 Baso # (Auto) 0.0 PT 10.8 INR 1.0 APTT 43.6 H Sodium 138 Potassium 5.3 H Chloride 104 Carbon Dioxide 16 L Anion Gap 23 H BUN 94 H Creatinine 8.5 H* D Est GFR ( Amer) 6 Est GFR (Non-Af Amer) 5 Random Glucose 175 H D Calcium 8.2 L Total Bilirubin 0.2 AST 23 ALT 19 Alkaline Phosphatase 68 Total Protein 8.1 Albumin 4.5 Globulin 3.6 Albumin/Globulin Ratio 1.3 Blood Type Blood Type Confirm Antibody Screen Antibody Identification Antigen Identification 12/20/18 12/20/18 19:55 20:26 WBC RBC Hgb Hct MCV MCH MCHC RDW Plt Count MPV Neut % (Auto) Lymph % (Auto) George % (Auto) Eos % (Auto) Baso % (Auto) Neut # (Auto) Lymph # (Auto) George # (Auto) Eos # (Auto) Baso # (Auto) PT INR APTT Sodium Potassium Chloride Carbon Dioxide Anion Gap BUN Creatinine Est GFR ( Amer) Est GFR (Non-Af Amer) Random Glucose Calcium Total Bilirubin AST ALT Alkaline Phosphatase Total Protein Albumin Globulin Albumin/Globulin Ratio Blood Type B POSITIVE Blood Type Confirm B POSITIVE Antibody Screen Positive Antibody Identification Anti M Antigen Identification M Antigen - NEGATIVE Assessment & Plan - Assessment and Plan (Free Text) Assessment: Patient with history of Hypertension, Anemia, CRI, Hyperuricemia, cholesterol, hyperglycemia, admitted for Acute renal failure /CRI- discussion with renal -will prepare for HD called surgery for perma cath Acute anemia /chronic anemia- with no sign of bleeding - could be secondary to renal problems transfusion discussion and follow up cbc , discussed with renal Hypertension- controlled - will monitor Hyperuricemia- will continue meds Hyperkalemia- will give one dose of lactulose and follow up level EKG History Hyperglycemia will check AIC history high cholesterol- will follow labs GI prophylaxis - Date & Time Date: 12/20/18 Time: 08:00
[2018-12-21 04:03] LABS: SQUAMOUS EPITHIAL 2 /hpf (0-5); URINE BACTERIA RARE (<OCC); URINE BILIRUBIN NEGATIVE (NEGATIVE); URINE BLOOD NEGATIVE (NEGATIVE); URINE CLARITY Clear (Clear); URINE COLOR Red (YELLOW); URINE GLUCOSE (UA) 1+ mg/dL (Normal); URINE LEUKOCYTE ESTERASE NEG Leu/uL (Negative); URINE PROTEIN 2+ mg/dL (NEGATIVE); URINE UROBILINOGEN NORMAL mg/dL (0.2-1.0)
[2018-12-21] MEDS: Multivitamin Vitamin B Complex (Nephro-Vite) Tab PO SCH ×2 (08:10→18:10)
--- NOTE | 2018-12-21 08:15 | CP.PCM.PN ---
Subjective - Date & Time of Evaluation Date of Evaluation: 12/21/18 Time of Evaluation: 01:00 - Subjective Subjective: chart review Vitals BP good 2 units PRBC transfusion no unusual event overnight Surgical note on perma cath insertion today follow up labs- patient seen post cath insertion- no complains hungry no fever aware of condition by bedside possible dialysis Objective - Vital Signs/Intake and Output Vital Signs (last 24 hours): Temp Pulse Resp BP Pulse Ox 98 F 67 20 148/75 97 12/21/18 06:43 12/21/18 06:43 12/21/18 06:43 12/21/18 06:43 12/20/18 23:00 Intake and Output: 12/21/18 12/21/18 06:59 18:59 Intake Total 1100 Balance 1100 - Medications Medications: Current Medications Amlodipine Besylate (Norvasc) 10 mg PO DAILY [facility] Epoetin Hardik (Procrit) 10,000 unit SC ONCE [facility] Ferric Sodium Gluconate Complex (Ferrlecit) 125 mg IVPB DAILY [facility] Stop: 12/29/18 10:01 Hydralazine HCl (Apresoline) 50 mg PO TID [facility] Sodium Chloride (Sodium Chloride 0.9%) 1,000 mls @ 80 mls/hr IV .[id number] [facility] Last Admin: 12/20/18 22:11 Dose: 80 mls/hr Pantoprazole Sodium (Protonix Ec Tab) 40 mg PO DAILY [facility] Pneumococcal Polyvalent Vaccine (Pneumovax 23 Vaccine) 0.5 ml IM .ONCE ONE Stop: 12/23/18 14:01 Sodium Bicarbonate (Sodium Bicarbonate Tab) 650 mg PO Q6 [facility] Last Admin: 12/21/18 06:24 Dose: 650 mg Vitamin B Complex/Vit C/Folic Acid (Nephro-Ekaterina) 1 tab PO 0800 [facility] - Labs Labs: 12/20/18 19:55 12/20/18 19:55 PT 10.8 SECONDS (9.7-12.2) 12/20/18 19:55 INR 1.0 12/20/18 19:55 APTT 43.6 SECONDS (21-34) H 12/20/18 19:55 - Constitutional Appears: Non-toxic, No Acute Distress - Head Exam Head Exam: ATRAUMATIC, NORMOCEPHALIC - Eye Exam Eye Exam: Normal appearance. absent: Nystagmus - ENT Exam ENT Exam: Mucous Membranes Moist - Neck Exam Neck Exam: Full ROM. absent: Tenderness - Respiratory Exam Respiratory Exam: Clear to Ausculation Bilateral, NORMAL BREATHING PATTERN - Cardiovascular Exam Cardiovascular Exam: REGULAR RHYTHM, Murmur (anterior chest cath- bandaged no soiling) - GI/Abdominal Exam GI & Abdominal Exam: Soft, Normal Bowel Sounds. absent: Tenderness - Back Exam Back Exam: NORMAL INSPECTION - Neurological Exam Neurological Exam: Alert, Awake, Normal Gait, Oriented x3 - Psychiatric Exam Psychiatric exam: Normal Affect, Normal Mood - Skin Skin Exam: Intact, Normal Color Assessment and Plan - Assessment and Plan (Free Text) Assessment: Patient with CRI- came with acute renal failure -cath insertion done this morning - plan for dialysis as per renal Anemia- post 2 units transfusion- currently on IV iron, follow up labs Hypertension- monitor , adjust accordingly History of hyperglycemia-patient tried TLC- AIC normal- History of Hyperuricemia uric acid levl of 13- will start low dos allopurinol due to ARF further discussion GI prophylaxis hold off drug dvt prophylaxis
[2018-12-21] MEDS ORDERED: EPOETIN ALFA 10,000 UNIT/ML ML SC SCH (10:00)
[2018-12-21 10:40] LABS: BASO % 0.7 % (0.0-2.0); EOS # 0.1 K/uL (0.0-0.7); EOS % 1.7 % (0.0-4.0); HEMOGLOBIN 7.8 g/dL (11.0-16.0); LYMPH # 0.9 K/uL (1.0-4.3); LYMPH % 18.9 % (20.0-40.0); MEAN CORPUSCULAR HGB CONC 33.3 g/dL (33.0-37.0); MEAN PLATELET VOLUME 7.9 fL (7.2-11.7); MONO # 0.4 K/uL (0.0-0.8); MONO % 7.8 % (0.0-10.0); NEUT # 3.4 K/uL (1.8-7.0); NEUT % 70.9 % (50.0-75.0); RBC 2.51 Mil/uL (3.80-5.20); RED CELL DISTRIBUTION WIDTH 17.7 % (11.5-14.5); WHITE BLOOD COUNT 4.8 K/uL (4.8-10.8)
[2018-12-21 10:44] LABS: MEAN CELL VOLUME 93.4 fL (81.0-99.0)
[2018-12-21] MEDS ORDERED: HEPARIN-NS 5,000 UNITS/500 ML 5,000 UNIT/500 ML BAG IV ONE (10:53)
[2018-12-21] MEDS ORDERED: Lidocaine Hydrochloride 10 ML INJ ONE (10:53)
[2018-12-21] MEDS ORDERED: Iodixanol 320 MG/ML 200 ML BOTTLE IV ONE (10:53)
[2018-12-21 11:18] LABS: HDL CHOLESTEROL 57 mg/dL (30-70); URIC ACID 13.8 mg/dL (2.2-7.5)
[2018-12-21 11:29] LABS: LDL CHOLESTEROL 49 mg/dL (0-129)
[2018-12-21 11:38] LABS: ALB/GLOB RATIO 1.2 (1.0-2.1); ALBUMIN 4.1 g/dL (3.5-5.0); CALCIUM 8.5 mg/dl (8.6-10.4)
[2018-12-21] MEDS ORDERED: Vancomycin 1 gm/D5W 200 ml 1 GM/200 ML BAG IVPB ONE (11:47)
[2018-12-21 11:48] LABS: IRON 64 ug/dL (37-170)
[2018-12-21] MEDS ORDERED: Midazolam 2 MG/2 ML VIAL ONE (11:51)
[2018-12-21] MEDS ORDERED: Propofol 10 mg/ml Inj (20 ML) ONE (11:54)
[2018-12-21 11:57] LABS: % IRON SATURATION 26 (20-55); TOTAL IRON BINDING CAPACITY 248 ug/dL (250-450)
[2018-12-21] MEDS ORDERED: HYDROmorphone 0.5 mg/0.5 ml ISec IVP PRN (12:41)
--- NOTE | 2018-12-21 12:45 | PCM.SURG1 ---
Surgeon's Initial Post Op Note - Surgeon's Notes Surgeon: Dr. Harman [employer] Dealer: Dr. Pennington Type of Anesthesia: IV Sedation, Local Pre-Operative Diagnosis: renal failure Operative Findings: flouroscopy confimred placement of right IJ permacath Post-Operative Diagnosis: renal failure Operation Performed: right IJ permacath placement Specimen/Specimens Removed: none Estimated Blood Loss: EBL {In ML}: 10 Blood Products Given: N/A Drains Used: No Drains Post-Op Condition: Good Date of Surgery/Procedure: 12/21/18 Time of Surgery/Procedure: 12:45
[2018-12-21] MEDS ORDERED: EPOETIN ALFA 10,000 UNIT/ML ML IV SCH (14:15)
[2018-12-21] MEDS: Pantoprazole 40 mg EC Tab PO SCH ×2 (14:26→18:05)
[2018-12-21] MEDS: Tramadol 25 mg PO PRN (14:28)
--- NOTE | 2018-12-21 14:28 | CP.PCM.CON ---
History of Present Illness - History of Present Illness History of Present Illness: pt is seen and examined full consult is dictated #[id number] Past Patient History - Infectious Disease Hx of Infectious Diseases: None - Past Medical History & Family History Past Medical History?: Yes - Past Social History Smoking Status: Never Smoked - CARDIAC Hx Cardiac Disorders: Yes Hx Hypertension: Yes - PULMONARY Hx Respiratory Disorders: Yes Hx Bronchitis: Yes - NEUROLOGICAL Hx Neurological Disorder: No - HEENT Hx HEENT Problems: Yes Other/Comment: wear eyeglasse for poor vision - RENAL Hx Chronic Kidney Disease: Yes - ENDOCRINE/METABOLIC Hx Endocrine Disorders: No - HEMATOLOGICAL/ONCOLOGICAL Hx Blood Disorders: Yes Hx Anemia: Yes - INTEGUMENTARY Hx Dermatological Problems: No - MUSCULOSKELETAL/RHEUMATOLOGICAL Hx Musculoskeletal Disorders: No Hx Falls: No - GASTROINTESTINAL Hx Gastrointestinal Disorders: No - GENITOURINARY/GYNECOLOGICAL Hx Genitourinary Disorders: No - PSYCHIATRIC Hx Psychophysiologic Disorder: No Hx Substance Use: No - SURGICAL HISTORY Hx Surgeries: Yes (breast fibroadenoma) Hx Tubal Ligation: Yes Other/Comment: fibroadenoma left and right surgey - ANESTHESIA Hx Anesthesia: Yes Hx Anesthesia Reactions: No Meds Allergies/Adverse Reactions: Allergies Allergy/AdvReac Type Severity Reaction Status Date / Time Penicillins Allergy RASH Verified 12/20/18 19:21 - Medications Medications: Current Medications Amlodipine Besylate (Norvasc) 10 mg PO DAILY [facility] Last Admin: 12/21/18 13:36 Dose: Not Given Epoetin Hardik (Procrit) 10,000 unit IV ONCE [facility] Ferric Sodium Gluconate Complex (Ferrlecit) 125 mg IVPB DAILY [facility] Stop: 12/29/18 10:01 Hydralazine HCl (Apresoline) 50 mg PO TID [facility] Last Admin: 12/21/18 13:35 Dose: Not Given Hydromorphone HCl (Dilaudid) 0.5 mg IVP Q15M PRN PRN Reason: Pain, moderate (4-7) Stop: 12/21/18 14:41 Sodium Chloride (Sodium Chloride 0.9%) 1,000 mls @ 80 mls/hr IV .[id number] [facility] Last Admin: 12/20/18 22:11 Dose: 80 mls/hr Metoclopramide HCl (Reglan) 10 mg IVP ONCE PRN PRN Reason: Nausea/Vomiting Stop: 12/21/18 14:41 Ondansetron HCl (Zofran Inj) 4 mg IVP ONCE PRN PRN Reason: Nausea/Vomiting Stop: 12/21/18 14:41 Pantoprazole Sodium (Protonix Ec Tab) 40 mg PO DAILY [facility] Last Admin: 12/21/18 14:26 Dose: Not Given Pneumococcal Polyvalent Vaccine (Pneumovax 23 Vaccine) 0.5 ml IM .ONCE ONE Stop: 12/23/18 14:01 Sodium Bicarbonate (Sodium Bicarbonate Tab) 650 mg PO Q6 [facility] Last Admin: 12/21/18 12:00 Dose: Not Given Tramadol HCl (Ultram) 25 mg PO Q8 PRN PRN Reason: Pain, moderate (4-7) Vitamin B Complex/Vit C/Folic Acid (Nephro-Ekaterina) 1 tab PO 0800 [facility] Last Admin: 12/21/18 08:10 Dose: Not Given Results - Vital Signs Recent Vital Signs: Last Vital Signs Temp 98.1 F 12/21/18 13:33 Pulse 64 12/21/18 13:33 Resp 20 12/21/18 13:33 BP 151/65 H 12/21/18 13:33 Pulse Ox 96 12/21/18 13:33 - Labs Result Diagrams: 12/21/18 10:30 12/21/18 10:30 Labs: Laboratory Results - last 24 hr 12/20/18 12/20/18 12/20/18 19:55 19:55 19:55 WBC 6.7 RBC 1.97 L Hgb 6.3 L* D Hct 18.9 L MCV 95.9 D MCH 31.8 H MCHC 33.1 RDW 13.7 Plt Count 223 MPV 8.2 Neut % (Auto) 72.9 Lymph % (Auto) 15.5 L [place] % (Auto) 6.8 Eos % (Auto) 4.2 H Baso % (Auto) 0.6 Neut # (Auto) 4.9 Lymph # (Auto) 1.0 [place] # (Auto) 0.5 Eos # (Auto) 0.3 Baso # (Auto) 0.0 PT 10.8 INR 1.0 APTT 43.6 H Sodium 138 Potassium 5.3 H Chloride 104 Carbon Dioxide 16 L Anion Gap 23 H BUN 94 H Creatinine 8.5 H* D Est GFR ( Amer) 6 Est GFR (Non-Af Amer) 5 Random Glucose 175 H D Hemoglobin A1c Uric Acid Calcium 8.2 L Phosphorus Magnesium Iron TIBC % Saturation Ferritin Total Bilirubin 0.2 AST 23 ALT 19 Alkaline Phosphatase 68 Total Protein 8.1 Albumin 4.5 Globulin 3.6 Albumin/Globulin Ratio 1.3 Triglycerides Cholesterol LDL Cholesterol Direct HDL Cholesterol TSH 3rd Generation Urine Color Urine Clarity Urine pH Ur Specific Kinde Urine Protein Urine Glucose (UA) Urine Ketones Urine Blood Urine Nitrate Urine Bilirubin Urine Urobilinogen Ur Leukocyte Esterase Urine WBC (Auto) Urine RBC (Auto) Ur Squamous Epith Cells Urine Bacteria Blood Type Blood Type Confirm Antibody Screen Antibody Identification Antigen Identification 12/20/18 12/20/18 12/21/18 19:55 20:26 03:55 WBC RBC Hgb Hct MCV MCH MCHC RDW Plt Count MPV Neut % (Auto) Lymph % (Auto) [place] % (Auto) Eos % (Auto) Baso % (Auto) Neut # (Auto) Lymph # (Auto) [place] # (Auto) Eos # (Auto) Baso # (Auto) PT INR APTT Sodium Potassium Chloride Carbon Dioxide Anion Gap BUN Creatinine Est GFR ( Amer) Est GFR (Non-Af Amer) Random Glucose Hemoglobin A1c Uric Acid Calcium Phosphorus Magnesium Iron TIBC % Saturation Ferritin Total Bilirubin AST ALT Alkaline Phosphatase Total Protein Albumin Globulin Albumin/Globulin Ratio Triglycerides Cholesterol LDL Cholesterol Direct HDL Cholesterol TSH 3rd Generation Urine Color Red Urine Clarity Clear Urine pH 5.0 Ur Specific [place] 1.008 Urine Protein 2+ H Urine Glucose (UA) 1+ Urine Ketones Negative Urine Blood Negative Urine Nitrate Negative Urine Bilirubin Negative Urine Urobilinogen Normal Ur Leukocyte Esterase Neg Urine WBC (Auto) 2 Urine RBC (Auto) 1 Ur Squamous Epith Cells 2 Urine Bacteria Rare Blood Type B POSITIVE Blood Type Confirm B POSITIVE Antibody Screen Positive Antibody Identification Anti M Antigen Identification M Antigen - NEGATIVE 12/21/18 12/21/18 12/21/18 10:30 10:30 10:30 WBC 4.8 RBC 2.51 L Hgb 7.8 L Hct 23.5 L MCV 93.4 D MCH 31.0 MCHC 33.3 RDW 17.7 H Plt Count 169 MPV 7.9 Neut % (Auto) 70.9 Lymph % (Auto) 18.9 L [place] % (Auto) 7.8 Eos % (Auto) 1.7 Baso % (Auto) 0.7 Neut # (Auto) 3.4 Lymph # (Auto) 0.9 L [place] # (Auto) 0.4 Eos # (Auto) 0.1 Baso # (Auto) 0.0 PT INR APTT Sodium 140 Potassium 4.4 Chloride 109 H Carbon Dioxide 14 L Anion Gap 20 BUN 91 H Creatinine 7.7 H* Est GFR ( Amer) 6 Est GFR (Non-Af Amer) 5 Random Glucose 88 D Hemoglobin A1c Uric Acid 13.8 H Calcium 8.5 L Phosphorus 6.8 H Magnesium 2.4 H Iron TIBC % Saturation Ferritin 212.0 Total Bilirubin 0.4 AST 37 H D ALT 21 Alkaline Phosphatase 68 Total Protein 7.4 Albumin 4.1 Globulin 3.3 Albumin/Globulin Ratio 1.2 Triglycerides 74 Cholesterol 127 LDL Cholesterol Direct 49 HDL Cholesterol 57 TSH 3rd Generation 1.61 Urine Color Urine Clarity Urine pH Ur Specific Kinde Urine Protein Urine Glucose (UA) Urine Ketones Urine Blood Urine Nitrate Urine Bilirubin Urine Urobilinogen Ur Leukocyte Esterase Urine WBC (Auto) Urine RBC (Auto) Ur Squamous Epith Cells Urine Bacteria Blood Type Blood Type Confirm Antibody Screen Antibody Identification Antigen Identification 12/21/18 12/21/18 10:30 10:30 WBC RBC Hgb Hct MCV MCH MCHC RDW Plt Count MPV Neut % (Auto) Lymph % (Auto) [place] % (Auto) Eos % (Auto) Baso % (Auto) Neut # (Auto) Lymph # (Auto) [place] # (Auto) Eos # (Auto) Baso # (Auto) PT INR APTT Sodium Potassium Chloride Carbon Dioxide Anion Gap BUN Creatinine Est GFR ( Amer) Est GFR (Non-Af Amer) Random Glucose Hemoglobin A1c 5.2 Uric Acid Calcium Phosphorus Magnesium Iron 64 TIBC 248 L % Saturation 26 Ferritin Total Bilirubin AST ALT Alkaline Phosphatase Total Protein Albumin Globulin Albumin/Globulin Ratio Triglycerides Cholesterol LDL Cholesterol Direct HDL Cholesterol TSH 3rd Generation Urine Color Urine Clarity Urine pH Ur Specific Kinde Urine Protein Urine Glucose (UA) Urine Ketones Urine Blood Urine Nitrate Urine Bilirubin Urine Urobilinogen Ur Leukocyte Esterase Urine WBC (Auto) Urine RBC (Auto) Ur Squamous Epith Cells Urine Bacteria Blood Type Blood Type Confirm Antibody Screen Antibody Identification Antigen Identification
--- NOTE | 2018-12-21 15:04 | RAD ---
Date of service: 12/21/2018 PROCEDURE: Intraoperative Fluoroscopy. HISTORY: RENAL FAILURE FINDINGS: Fluoroscopic assistance was provided. Fluoroscopy time = 8.9 sec. Radiation dose = 0.89 mGy. Please refer to the operative report from [facility].
[2018-12-21] MEDS: Ferric Sodium Gluconat Complex 62.5 mg/5 ml Vial IVPB SCH (15:17)
[2018-12-21] MEDS: Sodium Chloride 0.9% 1,000 ML IV SCH (16:12)
--- NOTE | 2018-12-21 16:23 | RAD ---
Date of service: 12/20/2018 HISTORY: Preoperative request COMPARISON: Comparison made with chest radiograph 02/28/2016. TECHNIQUE: 1 view obtained. FINDINGS: LUNGS: Poor inspiration with low lung volumes common crowded bronchovascular markings and mild bibasilar atelectasis. Central pulmonary vasculature is slightly increased as well. Rule out fluid overload or chronic compensated pulmonary venous congestion. PLEURA: No significant pleural effusion identified, no pneumothorax apparent. CARDIOVASCULAR: Cardiomegaly. Aortic atherosclerotic calcification present. OSSEOUS STRUCTURES: No significant abnormalities. VISUALIZED UPPER ABDOMEN: Normal. OTHER FINDINGS: None. IMPRESSION: Poor inspiration with low lung volumes common crowded bronchovascular markings and mild bibasilar atelectasis. Central pulmonary vasculature also appears increased; rule out fluid overload or mild pulmonary venous congestion.
--- NOTE | 2018-12-21 16:25 | RAD ---
Date of service: 12/21/2018 HISTORY: Status post PermCath insertion COMPARISON: Comparison made with prior chest radiograph 12/20/2018 TECHNIQUE: 1 view obtained. FINDINGS: Interval placement of a right IJ PermCath with tips in the SVC/RA junction. Central pulmonary vasculature LUNGS: Central pulmonary vasculature appears less congested. PLEURA: No significant pleural effusion identified, no pneumothorax apparent. CARDIOVASCULAR: Cardiomegaly. Aortic atherosclerotic calcification present. Normal cardiac size. No pulmonary vascular congestion. OSSEOUS STRUCTURES: No significant abnormalities. VISUALIZED UPPER ABDOMEN: Normal. OTHER FINDINGS: None. IMPRESSION: Interval placement right IJ PermCath with tips in the SVC/RA junction. The pulmonary vasculature appears slightly less congested. No evidence of pneumothorax.
--- NOTE | 2018-12-21 23:51 | OP ---
PROCEDURE DATE: 12/21/2018 PREOPERATIVE DIAGNOSIS: Renal failure. POSTOPERATIVE DIAGNOSIS: Renal failure. PROCEDURE CARRIED OUT: PermCath right jugular vein with C-arm fluoroscopy, ultrasound-guided puncture, and micropuncture technique. SURGEON: Jose Harman Jr., MD BLIND HANGER: Keyanna Pennington DO ANESTHESIOLOGIST: Dr. Hennessy. INDICATIONS: The patient is a 63-year-old woman with renal insufficiency who requires urgent dialysis, elevated potassium. OPERATIVE FINDINGS: Catheters inserted uneventfully via the jugular vein. DESCRIPTION OF PROCEDURE: The patient was given local anesthesia and intravenous antibiotics. Using ultrasound guidance and micropuncture technique, the right jugular vein was cannulated. Under fluoroscopic control, the guidewire was advanced centrally. A sheath dilator was then passed over this and a 0.035 wire positioned in the inferior vena cava. After the catheter was delivered, it originated on the right chest wall through the jugular vein and terminated in the superior vena cava. It was flushed with heparinized saline with good return and secured to the skin. The procedure was terminated. OPERATION CARRIED OUT: PermCath in the right jugular vein with C-arm fluoroscopy, ultrasound-guided puncture, and micropuncture technique. Ultrasound images of the neck showed that the vein was approximately 13 mm in diameter with normal compressibility and no intraluminal thrombosis. Jose Harman Jr., MD
--- NOTE | 2018-12-22 02:53 | CON ---
DATE: 12/21/2018 LOCATION: The patient is located in room 660, bed A. REQUESTED BY: Destiny Osullivan MD REASON FOR FOLLOWUP AND CONSULTATION: End-stage renal disease, severe anemia, evaluation for renal replacement therapy. HISTORY OF PRESENT ILLNESS: Mrs. Fernandez is a 63-year-old female with a past medical history significant for hypertension, bronchitis, gout, chronic kidney disease stage 4 more than a year ago, who was sent from the PMD office after the patient was found to have a hemoglobin of 6 and hyperkalemia and worsening renal function, for further evaluation and possible initiation of renal replacement therapy. The patient is complaining of weight loss about 20 pounds in the last 1 year and also feeling nauseous and poor appetite, and no vomiting, no chest pain, no palpitation. Complains of feeling weak and tired and feeling very cold. Denies any chest pain or palpitation. Denies any shortness of breath. Denies any swelling of the legs. Denies any edema. Denies any urinary symptoms. PAST MEDICAL HISTORY: Significant for gout, hypertension, bronchitis, and chronic kidney disease. PAST SURGICAL HISTORY: Denies. ALLERGIES: ALLERGIC TO PENICILLIN. SOCIAL HISTORY No smoking. No alcohol. No drugs. 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 CURRENT MEDICATIONS: Include hydralazine 50 mg p.o. t.i.d., Ferrlecit 125 mg IV daily, Nephro-Ekaterina 1 tablet daily, amlodipine 10 mg daily, Procrit 10,000 units x1, Protonix 40 mg daily, sodium bicarbonate 650 mg p.o. every 6 hours, tramadol, and allopurinol 100 mg p.o. daily. FAMILY HISTORY: Not significant except her sister was on dialysis. PHYSICAL EXAMINATION: As follows: VITAL SIGNS: Blood pressure 156/67, pulse 63, respirations 20, temperature 97.8, saturation 96%. Height 5 feet 4 inches, weight is 112 pounds. GENERA: Mrs. Fernandez is a 63-year-old elderly [place] female, thin built, not in distress. HEENT: Pupils normal and reactive to light and accommodation. Conjunctivae pink. Sclerae anicteric. Tongue is moist. Trachea is midline. No thyroid enlargement. LUNGS: Symmetric on both sides. Bilateral breath sounds present. Clear to auscultation. CARDIOVASCULAR SYSTEM: [place] at the fifth intercostal space and midclavicular line. S1, S2 audible. No murmur or gallop. ABDOMEN: Normal in appearance. Soft, tympanitic. No guarding. No rigidity. No hepatosplenomegaly. CENTRAL NERVOUS SYSTEM: The patient is alert, awake, and oriented x3. Nonfocal neuro examination. Cranial nerves II through XII grossly intact. Sensory and motor system is within normal limits. EXTREMITIES: No cyanosis, no clubbing, no edema. LABORATORY DATA: Include as follows: As of 12/20/2018, WBC 6.7, hemoglobin 6.3, hematocrit is 18.9, and platelets 229. PT 10.8, INR 1, PTT 43.6. Sodium 138, potassium 5.3, chloride 104, CO2 16, BUN 94, creatinine 8.5, glucose 175, calcium 8.2. Total bilirubin 0.2, AST 23, ALT 19, alkaline phosphatase 68, total protein 8.1, albumin is 4.5. Urinalysis; red color, clear, pH 5, specific gravity 1.008, protein 2+, glucose 1+, ketones negative, blood negative, nitrites negative, urobilinogen normal, leukocyte esterase negative, wbc 2, rbc 1. Hepatitis B core IgM antibody is pending. Other lab data as of 12/21/2018, WBC 4.8, hemoglobin 7.8, hematocrit is 23.5, platelets 169. Sodium 140, potassium 4.4, chloride 109, CO2 14, BUN 91, creatinine 7.7, GFR is 5, glucose 88. Hemoglobin A1c 5.2, uric acid 13.8, calcium 8.5, phosphorus 6.8, magnesium 2.4, iron is 64, TIBC 248, saturation 26, ferritin is 212, total bilirubin 0.4, AST 37, ALT 21, alkaline phosphatase 68, total protein 7.4, albumin is 4.1. Other reports, chest x-ray as of 12/20/2018, poor inspiration with low lung volumes, common crowded bronchovascular markings, and mild basilar atelectasis. Central pulmonary vascular also appears increased, rule out fluid overload or mild pulmonary venous congestion. ASSESSMENT AND PLAN: In summary, Mrs. Fernandez is a 63-year-old elderly [place] female with a history of longstanding hypertension, gout, chronic kidney disease 4, her baseline creatinine about 4 to 4.5 more than a year ago, who was admitted with worsening renal function, severe anemia, mild hyperkalemia, metabolic acidosis, and also feeling weak and tired, nausea, poor appetite, and weight loss about 20 pounds in the last one year. 1. End-stage renal disease, most likely secondary to hypertensive nephrosclerosis. 2. Anemia secondary to renal failure. 3. Metabolic acidosis secondary to chronic kidney disease . 4. Hyperuricemia and gout. The patient is asymptomatic at this time. Continue allopurinol 100 mg by mouth daily, and the patient agreed for PermCath placement, underwent PermCath placement this morning, and wants to wait for dialysis tomorrow. She is still thinking about her dialysis. The patient was explained the risk and benefits of the hemodialysis and also alternate procedure including peritoneal dialysis and transplant discussed in detail. Once the patient agrees, we will schedule for her hemodialysis in a.m. The patient's spouse is also at bedside during discussion. Continue Epogen, status post transfusion of 2 units of packed RBC last night, and continue Procrit, continue Nephrocaps, continue Ferrlecit, and also continue sodium bicarbonate 650 mg by mouth every 6 hours. Repeat laboratories in morning. Check hepatitis B and C serology, parathyroid hormone intact level. We will follow with you. Thank you for allowing me to participate in your patient's care. Case discussed with Dr. Osullivan. Angie Dawson MD
[2018-12-22] MEDS: Sodium Chloride 0.9% 1,000 ML IV SCH (04:30)
--- NOTE | 2018-12-22 07:09 | CP.PCM.PN ---
Subjective - Date & Time of Evaluation Date of Evaluation: 12/22/18 Time of Evaluation: 07:07 - Subjective Subjective: Vascular surgery progress note for Dr. Lisette Camarillo, PGY-2 Pt seen/examined at bedside Pt reports that she did not go for HD yesterday because she was deciding whether or not to do it. Reports she will likely have it done today. Reports minimal pain at permacath site due to pulling. Denies SOB, CP, other complaints. Objective - Vital Signs/Intake and Output Vital Signs (last 24 hours): Temp Pulse Resp BP Pulse Ox 98.7 F 64 20 120/56 L 99 12/21/18 23:00 12/22/18 04:34 12/21/18 23:00 12/21/18 23:00 12/21/18 23:00 Intake and Output: 12/22/18 12/22/18 06:59 18:59 Intake Total 1650 Balance 1650 - Medications Medications: Current Medications Allopurinol (Zyloprim) 100 mg PO DAILY [facility] Amlodipine Besylate (Norvasc) 10 mg PO DAILY [facility] Last Admin: 12/21/18 18:06 Dose: 10 mg Epoetin Hardik (Procrit) 10,000 unit IV ONCE [facility] Ferric Sodium Gluconate Complex (Ferrlecit) 125 mg IVPB DAILY [facility] Stop: 12/29/18 10:01 Last Admin: 12/21/18 15:17 Dose: 125 mg Hydralazine HCl (Apresoline) 50 mg PO TID [facility] Last Admin: 12/21/18 18:09 Dose: 50 mg Sodium Chloride (Sodium Chloride 0.9%) 1,000 mls @ 80 mls/hr IV .[id number] [facility] Last Admin: 12/22/18 04:30 Dose: 80 mls/hr Pantoprazole Sodium (Protonix Ec Tab) 40 mg PO DAILY [facility] Last Admin: 12/21/18 18:05 Dose: 40 mg Pneumococcal Polyvalent Vaccine (Pneumovax 23 Vaccine) 0.5 ml IM .ONCE ONE Stop: 12/23/18 14:01 Sodium Bicarbonate (Sodium Bicarbonate Tab) 650 mg PO Q6 [facility] Last Admin: 12/22/18 01:00 Dose: 650 mg Tramadol HCl (Ultram) 25 mg PO Q8 PRN PRN Reason: Pain, moderate (4-7) Last Admin: 12/21/18 14:28 Dose: 25 mg Vitamin B Complex/Vit C/Folic Acid (Nephro-Ekaterina) 1 tab PO 0800 [facility] Last Admin: 12/21/18 18:10 Dose: 1 tab - Labs Labs: 12/21/18 10:30 12/21/18 10:30 PT 10.8 SECONDS (9.7-12.2) 12/20/18 19:55 INR 1.0 12/20/18 19:55 APTT 43.6 SECONDS (21-34) H 12/20/18 19:55 - Constitutional Appears: Non-toxic, No Acute Distress - Head Exam Head Exam: ATRAUMATIC, NORMAL INSPECTION, NORMOCEPHALIC - Eye Exam Eye Exam: EOMI, Normal appearance - ENT Exam ENT Exam: Mucous Membranes Moist, Normal Exam - Neck Exam Neck Exam: Full ROM, Normal Inspection Additional comments: RIJ permacath in place- dressing clean/dry/intact - Respiratory Exam Respiratory Exam: NORMAL BREATHING PATTERN - Cardiovascular Exam Cardiovascular Exam: REGULAR RHYTHM - GI/Abdominal Exam GI & Abdominal Exam: Soft - Neurological Exam Neurological Exam: Alert, Awake, CN II-XII Intact, Oriented x3 - Psychiatric Exam Psychiatric exam: Normal Affect, Normal Mood - Skin Skin Exam: Dry, Intact, Normal Color, Warm Assessment and Plan - Assessment and Plan (Free Text) Assessment: 63F POD#1 s/p RIJ permacath placement Plan: Plan for AVF creation this week if pt amenable FU vein mapping Pain control PRN L arm precautions Further care as per primary team Will TAMIKA Camarillo, PGY-2
[2018-12-22 07:46] LABS: BASO # 0.1 K/uL (0.0-0.2); EOS # 0.3 K/uL (0.0-0.7); EOS % 5.8 % (0.0-4.0); HEMOGLOBIN 7.8 g/dL (11.0-16.0); LYMPH # 0.9 K/uL (1.0-4.3); LYMPH % 16.3 % (20.0-40.0); MEAN CELL VOLUME 93.4 fL (81.0-99.0); MEAN CORPUSCULAR HEMOGLOBIN 31.5 pg (27.0-31.0); MEAN CORPUSCULAR HGB CONC 33.7 g/dL (33.0-37.0); MEAN PLATELET VOLUME 8.1 fL (7.2-11.7); MONO # 0.4 K/uL (0.0-0.8); MONO % 7.8 % (0.0-10.0); NEUT # 3.8 K/uL (1.8-7.0); NEUT % 69.1 % (50.0-75.0); RBC 2.46 Mil/uL (3.80-5.20); RED CELL DISTRIBUTION WIDTH 17.8 % (11.5-14.5); WHITE BLOOD COUNT 5.6 K/uL (4.8-10.8)
[2018-12-22 08:10] LABS: HEPATITIS B SURFACE AG Negative (NEGATIVE)
[2018-12-22 08:16] LABS: HEPATITIS A IGM NEGATIVE (NEGATIVE); HEPATITIS B CORE AB NEGATIVE (NEGATIVE)
[2018-12-22 08:27] LABS: HEPATITIS C ANTIBODY NEGATIVE (NEGATIVE)
[2018-12-22 09:21] LABS: HEPATITIS B CORE AB NEGATIVE (NEGATIVE)
--- NOTE | 2018-12-22 10:35 | CP.PCM.PN ---
Subjective - Date & Time of Evaluation Date of Evaluation: 12/22/18 Time of Evaluation: 10:34 - Subjective Subjective: plan avf for saturday Objective - Vital Signs/Intake and Output Vital Signs (last 24 hours): Temp Pulse Resp BP Pulse Ox 98.4 F 68 20 187/69 H 98 12/22/18 07:30 12/22/18 07:30 12/22/18 07:30 12/22/18 07:30 12/22/18 07:30 Intake and Output: 12/22/18 12/22/18 06:59 18:59 Intake Total 1650 Balance 1650 - Medications Medications: Current Medications Allopurinol (Zyloprim) 100 mg PO DAILY [facility] Amlodipine Besylate (Norvasc) 10 mg PO DAILY [facility] Last Admin: 12/21/18 18:06 Dose: 10 mg Epoetin Hardik (Procrit) 10,000 unit IV ONCE [facility] Ferric Sodium Gluconate Complex (Ferrlecit) 125 mg IVPB DAILY [facility] Stop: 12/29/18 10:01 Last Admin: 12/21/18 15:17 Dose: 125 mg Hydralazine HCl (Apresoline) 50 mg PO TID [facility] Last Admin: 12/21/18 18:09 Dose: 50 mg Sodium Chloride (Sodium Chloride 0.9%) 1,000 mls @ 80 mls/hr IV .[id number] [facility] Last Admin: 12/22/18 04:30 Dose: 80 mls/hr Pantoprazole Sodium (Protonix Ec Tab) 40 mg PO DAILY [facility] Last Admin: 12/21/18 18:05 Dose: 40 mg Pneumococcal Polyvalent Vaccine (Pneumovax 23 Vaccine) 0.5 ml IM .ONCE ONE Stop: 12/23/18 14:01 Sodium Bicarbonate (Sodium Bicarbonate Tab) 650 mg PO Q6 [facility] Last Admin: 12/22/18 07:34 Dose: 650 mg Tramadol HCl (Ultram) 25 mg PO Q8 PRN PRN Reason: Pain, moderate (4-7) Last Admin: 12/21/18 14:28 Dose: 25 mg Vitamin B Complex/Vit C/Folic Acid (Nephro-Ekaterina) 1 tab PO 0800 [facility] Last Admin: 12/21/18 18:10 Dose: 1 tab - Labs Labs: 12/22/18 07:34 05/12/19 10:30 PT 10.8 SECONDS (9.7-12.2) 12/20/18 19:55 INR 1.0 12/20/18 19:55 APTT 43.6 SECONDS (21-34) H 12/20/18 19:55
[2018-12-22] MEDS: Ferric Sodium Gluconat Complex 62.5 mg/5 ml Vial IVPB SCH (11:00)
--- NOTE | 2018-12-22 11:09 | CP.PCM.PN ---
Subjective - Date & Time of Evaluation Date of Evaluation: 12/22/18 Time of Evaluation: 09:30 - Subjective Subjective: chart review labs-hemoglobin 7.8 Vitals- Bp on the high side had discussion with Dr Eddie Boo regarding patient's refusal to start HD yesterday no unusual event patient seen Patient in bed- conversant , but kind of anxious slightly depressed of her kidney status she tried self treatment, TLC herbal, hoping her kidney will improved she tLC so much that she lost so much weight she cahnged her food an dhad stopped her allopurinol, hoping level will be improved by her TLC , but has attacks of gout , she takes colchicine she neeta permacath yesterday but did not agree to start HD yesterday further discussion she agreed to start todays HD Objective - Vital Signs/Intake and Output Vital Signs (last 24 hours): Temp Pulse Resp BP Pulse Ox 98 F 62 16 165/92 H 98 12/22/18 10:15 12/22/18 10:15 12/22/18 10:15 12/22/18 10:30 12/22/18 10:15 Intake and Output: 12/22/18 12/22/18 06:59 18:59 Intake Total 1650 Balance 1650 - Medications Medications: Current Medications Allopurinol (Zyloprim) 100 mg PO DAILY [facility] Amlodipine Besylate (Norvasc) 10 mg PO DAILY [facility] Last Admin: 12/21/18 18:06 Dose: 10 mg Epoetin Hardik (Procrit) 10,000 unit IV ONCE [facility] Ferric Sodium Gluconate Complex (Ferrlecit) 125 mg IVPB DAILY [facility] Stop: 12/29/18 10:01 Last Admin: 12/21/18 15:17 Dose: 125 mg Hydralazine HCl (Apresoline) 50 mg PO TID [facility] Last Admin: 12/21/18 18:09 Dose: 50 mg Sodium Chloride (Sodium Chloride 0.9%) 1,000 mls @ 80 mls/hr IV .[id number] [facility] Last Admin: 12/22/18 04:30 Dose: 80 mls/hr Pantoprazole Sodium (Protonix Ec Tab) 40 mg PO DAILY [facility] Last Admin: 12/21/18 18:05 Dose: 40 mg Pneumococcal Polyvalent Vaccine (Pneumovax 23 Vaccine) 0.5 ml IM .ONCE ONE Stop: 12/23/18 14:01 Sodium Bicarbonate (Sodium Bicarbonate Tab) 650 mg PO Q6 [facility] Last Admin: 12/22/18 07:34 Dose: 650 mg Tramadol HCl (Ultram) 25 mg PO Q8 PRN PRN Reason: Pain, moderate (4-7) Last Admin: 12/21/18 14:28 Dose: 25 mg Vitamin B Complex/Vit C/Folic Acid (Nephro-Ekaterina) 1 tab PO 0800 [facility] Last Admin: 12/21/18 18:10 Dose: 1 tab - Labs Labs: 12/22/18 07:34 12/21/18 10:30 PT 10.8 SECONDS (9.7-12.2) 12/20/18 19:55 INR 1.0 12/20/18 19:55 APTT 43.6 SECONDS (21-34) H 12/20/18 19:55 - Constitutional Appears: Well, No Acute Distress - Head Exam Head Exam: ATRAUMATIC, NORMOCEPHALIC - Eye Exam Eye Exam: Normal appearance. absent: Nystagmus - ENT Exam ENT Exam: Mucous Membranes Moist - Neck Exam Neck Exam: Full ROM. absent: Tenderness - Respiratory Exam Respiratory Exam: Clear to Ausculation Bilateral, NORMAL BREATHING PATTERN - Cardiovascular Exam Cardiovascular Exam: REGULAR RHYTHM, Murmur - GI/Abdominal Exam GI & Abdominal Exam: Soft, Normal Bowel Sounds. absent: Tenderness - Extremities Exam Extremities Exam: Full ROM, Normal Inspection. absent: Pedal Edema - Back Exam Back Exam: Full ROM. absent: rash noted, tenderness - Neurological Exam Neurological Exam: Alert, Awake, Normal Gait, Oriented x3 - Psychiatric Exam Psychiatric exam: Normal Affect, Normal Mood - Skin Skin Exam: Intact, Normal Color Assessment and Plan - Assessment and Plan (Free Text) Assessment: Patient with history of CRI- delaying further renal evaluation and treatment - dis some self treatment , TLC herbal, found to have ARF initially did not want to start HD, but agreed today further discussion on renal care positive for FH renal disease Hypertension-on the high side-she was always good- contributory-anxiety, depression, but she will go for HD today to monitor adjust accordingly Acute anemia/chronic anemia post transfusion 2 units, depite of it repeat hemoglobin is 7.8, FOB ordered, GI consult Hyperuricemia-will start allopurinol according to renal function Mild Depression - normal response to medical stuation- controllable, supportive discussion, does not need medication GI prophylaxis no drug dvt prophylaxis
[2018-12-22] MEDS: Pantoprazole 40 mg EC Tab PO SCH (11:53)
[2018-12-22] MEDS ORDERED: Epoetin Alfa 10,000 unit/ml Dialysis IV ONE (12:30)
--- NOTE | 2018-12-22 13:14 | CARD ---
APPROVED REPORT Date of service: 12/20/2018 EKG Measurement Heart [id number] <Conclusion> Normal sinus rhythm Left axis deviation Septal infarct, age undetermined Abnormal ECG
--- NOTE | 2018-12-22 13:22 | CP.PCM.PN ---
Subjective - Date & Time of Evaluation Date of Evaluation: 12/22/18 Time of Evaluation: 13:21 - Subjective Subjective: pt is seen and examined by me,follow up consult is dictated #[id number] s/p first hd tx, stable Objective - Vital Signs/Intake and Output Vital Signs (last 24 hours): Temp Pulse Resp BP Pulse Ox 98 F 62 16 159/52 H 98 12/22/18 10:15 12/22/18 10:15 12/22/18 10:15 12/22/18 12:15 12/22/18 10:15 Intake and Output: 12/22/18 12/22/18 06:59 18:59 Intake Total 1650 Balance 1650 - Medications Medications: Current Medications Allopurinol (Zyloprim) 100 mg PO DAILY [facility] Amlodipine Besylate (Norvasc) 10 mg PO DAILY [facility] Last Admin: 12/22/18 11:53 Dose: Not Given Ferric Sodium Gluconate Complex (Ferrlecit) 125 mg IVPB DAILY [facility] Stop: 12/29/18 10:01 Last Admin: 12/21/18 15:17 Dose: 125 mg Hydralazine HCl (Apresoline) 50 mg PO TID [facility] Last Admin: 12/22/18 11:51 Dose: Not Given Sodium Chloride (Sodium Chloride 0.9%) 1,000 mls @ 80 mls/hr IV .[id number] [facility] Last Admin: 12/22/18 04:30 Dose: 80 mls/hr Pantoprazole Sodium (Protonix Ec Tab) 40 mg PO DAILY [facility] Last Admin: 12/22/18 11:53 Dose: Not Given Pneumococcal Polyvalent Vaccine (Pneumovax 23 Vaccine) 0.5 ml IM .ONCE ONE Stop: 12/23/18 14:01 Sodium Bicarbonate (Sodium Bicarbonate Tab) 650 mg PO Q6 [facility] Last Admin: 12/22/18 11:53 Dose: Not Given Tramadol HCl (Ultram) 25 mg PO Q8 PRN PRN Reason: Pain, moderate (4-7) Last Admin: 12/21/18 14:28 Dose: 25 mg Vitamin B Complex/Vit C/Folic Acid (Nephro-Ekaterina) 1 tab PO 0800 [facility] Last Admin: 12/21/18 18:10 Dose: 1 tab - Labs Labs: 12/22/18 07:34 12/21/18 10:30 PT 10.8 SECONDS (9.7-12.2) 12/20/18 19:55 INR 1.0 12/20/18 19:55 APTT 43.6 SECONDS (21-34) H 12/20/18 19:55
[2018-12-22] MEDS: Multivitamin Vitamin B Complex (Nephro-Vite) Tab PO SCH (14:30)
--- NOTE | 2018-12-22 14:37 | CP.PCM.CON ---
History of Present Illness - History of Present Illness History of Present Illness: CC: Anemia HPI: GI consult requested by Dr Osullivan on this 63 year old woman, admitted with acute on chronic renal failure, found to be markedly anemic with Hgb 6. Old records were reviewed and reveal a steady and gradual decline in Renal function and associated worsening anemia over the past 2-3 years. Patient never had Colonoscopy, admittedly "noncompliant" with her physician's advice. Patient denies overt GI bleeding aside from darker BMs when ingesting oral Iron. Denies change in bowel habits or abdominal pain. A urgent permacath was placed yesterday by Dr Harman and patient underwent her first dialysis today. Abdominal sonogram from 2018 reports 11 mm sized gallbladder polyps. Review of Systems - Constitutional Constitutional: absent: Weight Loss - EENT Eyes: absent: Change in Vision - Cardiovascular Cardiovascular: absent: Chest Pain - Respiratory Respiratory: absent: Cough, Dyspnea - Gastrointestinal Gastrointestinal: As Per HPI. absent: Abdominal Pain, Change in Bowel Habits, Hematochezia, Melena - Genitourinary Genitourinary: absent: Difficulty Urinating - Musculoskeletal Musculoskeletal: absent: Back Pain - Integumentary Integumentary: absent: Jaundice - Neurological Neurological: absent: Weakness - Psychiatric Psychiatric: absent: Behavioral Changes, Confusion Past Patient History - Infectious Disease Hx of Infectious Diseases: None - Past Medical History & Family History Past Medical History?: Yes - Past Social History Smoking Status: Never Smoked - CARDIAC Hx Cardiac Disorders: Yes Hx Hypertension: Yes - PULMONARY Hx Respiratory Disorders: Yes Hx Bronchitis: Yes - NEUROLOGICAL Hx Neurological Disorder: No - HEENT Hx HEENT Problems: Yes Other/Comment: wear eyeglasse for poor vision - RENAL Hx Chronic Kidney Disease: Yes - ENDOCRINE/METABOLIC Hx Endocrine Disorders: No - HEMATOLOGICAL/ONCOLOGICAL Hx Blood Disorders: Yes Hx Anemia: Yes - INTEGUMENTARY Hx Dermatological Problems: No - MUSCULOSKELETAL/RHEUMATOLOGICAL Hx Musculoskeletal Disorders: No Hx Falls: No - GASTROINTESTINAL Hx Gastrointestinal Disorders: No - GENITOURINARY/GYNECOLOGICAL Hx Genitourinary Disorders: No - PSYCHIATRIC Hx Psychophysiologic Disorder: No Hx Substance Use: No - SURGICAL HISTORY Hx Surgeries: Yes (breast fibroadenoma) Hx Tubal Ligation: Yes Other/Comment: fibroadenoma left and right surgey - ANESTHESIA Hx Anesthesia: Yes Hx Anesthesia Reactions: No Meds Allergies/Adverse Reactions: Allergies Allergy/AdvReac Type Severity Reaction Status Date / Time Penicillins Allergy RASH Verified 12/20/18 19:21 - Medications Medications: Current Medications Allopurinol (Zyloprim) 100 mg PO DAILY [facility] Amlodipine Besylate (Norvasc) 10 mg PO DAILY [facility] Last Admin: 12/22/18 11:53 Dose: Not Given Ferric Sodium Gluconate Complex (Ferrlecit) 125 mg IVPB DAILY [facility] Stop: 12/29/18 10:01 Last Admin: 12/21/18 15:17 Dose: 125 mg Hydralazine HCl (Apresoline) 50 mg PO TID [facility] Last Admin: 12/22/18 11:51 Dose: Not Given Sodium Chloride (Sodium Chloride 0.9%) 1,000 mls @ 80 mls/hr IV .[id number] [facility] Last Admin: 12/22/18 04:30 Dose: 80 mls/hr Pantoprazole Sodium (Protonix Ec Tab) 40 mg PO DAILY [facility] Last Admin: 12/22/18 11:53 Dose: Not Given Pneumococcal Polyvalent Vaccine (Pneumovax 23 Vaccine) 0.5 ml IM .ONCE ONE Stop: 12/23/18 14:01 Sodium Bicarbonate (Sodium Bicarbonate Tab) 650 mg PO Q6 [facility] Last Admin: 12/22/18 11:53 Dose: Not Given Tramadol HCl (Ultram) 25 mg PO Q8 PRN PRN Reason: Pain, moderate (4-7) Last Admin: 12/21/18 14:28 Dose: 25 mg Vitamin B Complex/Vit C/Folic Acid (Nephro-Ekaterina) 1 tab PO 0800 [facility] Last Admin: 12/21/18 18:10 Dose: 1 tab Physical Exam - Constitutional Appears: Well, No Acute Distress - Head Exam Head Exam: ATRAUMATIC, NORMOCEPHALIC - Eye Exam Eye Exam: Normal appearance. absent: Scleral icterus - ENT Exam ENT Exam: Normal Exam - Neck Exam Neck exam: Positive for: Normal Inspection. Negative for: Thyromegaly - Respiratory Exam Respiratory Exam: NORMAL BREATHING PATTERN - Cardiovascular Exam Cardiovascular Exam: REGULAR RHYTHM - GI/Abdominal Exam GI & Abdominal Exam: Soft. absent: Distended, Mass, Tenderness - Rectal Exam Rectal Exam: Deferred - Extremities Exam Extremities exam: Positive for: normal inspection - Back Exam Back exam: NORMAL INSPECTION - Neurological Exam Neurological exam: Alert, Oriented x3 - Psychiatric Exam Psychiatric exam: Normal Affect, Normal Mood - Skin Skin Exam: Normal Color Results - Vital Signs Recent Vital Signs: Last Vital Signs Temp 98 F 12/22/18 10:15 Pulse 62 12/22/18 10:15 Resp 16 12/22/18 10:15 BP 159/52 H 12/22/18 12:15 Pulse Ox 98 12/22/18 10:15 - Labs Result Diagrams: 12/22/18 07:34 12/21/18 10:30 Labs: Laboratory Results - last 24 hr 12/21/18 12/21/18 12/22/18 10:30 10:30 07:34 WBC 5.6 RBC 2.46 L Hgb 7.8 L Hct 23.0 L MCV 93.4 MCH 31.5 H MCHC 33.7 RDW 17.8 H Plt Count 154 MPV 8.1 Neut % (Auto) 69.1 Lymph % (Auto) 16.3 L [place] % (Auto) 7.8 Eos % (Auto) 5.8 H Baso % (Auto) 1.0 Neut # (Auto) 3.8 Lymph # (Auto) 0.9 L [place] # (Auto) 0.4 Eos # (Auto) 0.3 Baso # (Auto) 0.1 Hepatitis A IgM Ab Negative Hep Bs Antigen Negative Hep B Core IgM Ab Negative Negative Hepatitis C Antibody Negative Assessment & Plan (1) Anemia Assessment and Plan: Normal MCV and Iron indices are indicative of anemia of chronic disease. Await stool OB results Patient never had screening colonoscopy- can be arranged as outpatient, if patient is agreeable. Discussed with patient Status: Acute (2) Acute kidney injury superimposed on chronic kidney disease Assessment and Plan: On dialysis treatments now Status: Acute (3) Polyp of gallbladder Assessment and Plan: 11 mm sized polyps 2018 Repeat sonogram to evaluate- if polyps > 8-10 mm recommend elective cholecystectomy Status: Acute - Date & Time Date: 12/22/18 Time: 14:43
[2018-12-23] MEDS: Tramadol 25 mg PO PRN (00:43)
[2018-12-23] MEDS: Sodium Chloride 0.9% 1,000 ML IV SCH (03:38)
--- NOTE | 2018-12-23 03:45 | PN ---
DATE: 12/22/2018 FOLLOWUP RENAL CONSULTATION LOCATION: The patient is located in room 660, bed A. REQUESTED BY: Destiny Osullivan MD REASON FOR RENAL CONSULTATION: End-stage renal disease, for initiation of renal replacement therapy. HISTORY OF PRESENT ILLNESS: Mrs. Fernandez is a 63-year-old elderly [place] female with a past medical history significant for longstanding hypertension, gout, chronic kidney disease, and anemia, who was admitted with weakness and also feeling nauseous, decreased appetite and weight loss about 20 pounds in the last one year. The patient was found to have worsening renal function and low H and H, required transfusion of two units of packed RBC on Saturday and subsequently, the patient underwent PermCath placement yesterday. The patient agreed for hemodialysis this morning and signed the consent for dialysis and underwent hemodialysis this morning, complains of feeling weak. Denies any chest pain or palpitation. Denies any dysuria or frequency. Denies any abdominal pain. Denies any vomiting. PHYSICAL EXAMINATION: VITAL SIGNS: As follows: Blood pressure 159/52, pulse 68, respirations 18, temperature 98.9, saturation 96%. Height 5 feet 4 inches and weight is 110 pounds. GENERAL: Mrs. Fernandez is a 63-year-old elderly female, thin built, not in distress. HEENT: Pupils are normal, reactive to light and accommodation. Conjunctivae pink. Sclerae anicteric. Tongue is moist. Trachea is midline. LUNGS: Symmetric on both sides. Bilateral breath sounds present. Clear to auscultation. CARDIOVASCULAR SYSTEM: [place] at the fifth intercostal space, midclavicular line. S1 and S2 audible. No murmur, no gallop. ABDOMEN: Normal in appearance. Soft, tympanitic. No guarding. No rigidity. No hepatosplenomegaly. CENTRAL NERVOUS SYSTEM: The patient is alert, awake, oriented x3. Nonfocal neuro examination. Cranial nerves II-XII grossly intact. Sensory and motor system within normal limits. EXTREMITIES: No cyanosis, no clubbing, no edema. CURRENT MEDICATIONS: Include as follows: Hydralazine 50 mg p.o. t.i.d., Ferrlecit 125 mg IV daily, Nephro-Ekaterina one tablet daily, amlodipine 10 mg p.o. daily, pneumococcal vaccine x1, Protonix 40 mg p.o. daily, sodium bicarb 650 mg p.o. every 6 hours, tramadol 25 mg p.o. every 8 hours, and allopurinol 100 mg p.o. daily. LABORATORY DATA: Include as follows: As of 12/22/2018; WBC 5.6, hemoglobin 7.8, hematocrit is 23, and platelets 154. As of 12/21/2018; sodium 140, potassium 4.4, chloride 109, CO2 of 14, BUN 91, creatinine 7.7, glucose 88, and calcium 8.5. Uric acid 13.8. Phosphorus 6.8, magnesium 2.4. Iron 64, TIBC 248, saturation 26%, and ferritin 212. Total bili 0.4, AST 37, ALT 21, alkaline phosphatase 68, total protein 7.4, and albumin is 4.1. Cholesterol is 127, LDL 49, and HDL 57. TSH is 1.61 and PTH 387. Hepatitis C IgM antibody is negative. Hepatitis B surface antigen negative. Hepatitis B core antibody is negative. Hepatitis C antibody is negative. Chest x-ray as of 12/21/2018; poor inspiration with low lung volumes, common crowded bronchovascular markings and mild bibasilar atelectasis. Central pulmonary vasculature also appears increased, rule out fluid overload or mild pulmonary venous congestion. EKG; heart rate is 77, [place] interval 132, QRS 98, QT 412, left axis deviation, and septal infarct, age undetermined. Abnormal EEG. ASSESSMENT AND PLAN: In summary, Mrs. Fernandez is a 63-year-old with history of hypertension, gout, renal failure, and anemia, was admitted with weakness, nausea, poor appetite, weight loss, and worsening renal function. 1. End-stage renal disease, most likely secondary to hypertensive nephrosclerosis. 2. Anemia secondary to renal failure. 3. Gout. 4. Secondary hyperparathyroidism. 5. Rule out septal infarct, age undetermined. The patient underwent hemodialysis without any problem today and the patient is scheduled for AV fistula. Also, we will obtain echocardiogram for left ventricular ejection fraction and also waiting for the vein mapping. Continue Procrit three times a week on Saturday, Saturday, and Saturday. Also continue Nephro-Ekaterina and continue antihypertensive medications, Norvasc and hydralazine. We will titrate hydralazine as needed. Consider beta blockers if blood pressure remains high, more than 140. The patient was seen and examined during hemodialysis today. We will follow with you. Thank you for allowing me to participate in your patient's care. Angie Dawson MD
[2018-12-23 08:32] LABS: BASO % 0.6 % (0.0-2.0); EOS # 0.3 K/uL (0.0-0.7); HEMOGLOBIN 8.5 g/dL (11.0-16.0); LYMPH # 1.1 K/uL (1.0-4.3); LYMPH % 19.1 % (20.0-40.0); MEAN CORPUSCULAR HEMOGLOBIN 29.7 pg (27.0-31.0); MEAN CORPUSCULAR HGB CONC 32.6 g/dL (33.0-37.0); MEAN PLATELET VOLUME 8.2 fL (7.2-11.7); MONO # 0.6 K/uL (0.0-0.8); MONO % 10.8 % (0.0-10.0); NEUT # 3.5 K/uL (1.8-7.0); NEUT % 64.5 % (50.0-75.0); NRBC % 0.2 % (0.0-2.0); RBC 2.87 Mil/uL (3.80-5.20); RED CELL DISTRIBUTION WIDTH 17.9 % (11.5-14.5); WHITE BLOOD COUNT 5.5 K/uL (4.8-10.8)
[2018-12-23 08:35] LABS: MEAN CELL VOLUME 91.1 fL (81.0-99.0)
[2018-12-23 08:49] LABS: CALCIUM 8.1 mg/dl (8.6-10.4)
[2018-12-23 08:58] LABS: INR 1.1; PARTIAL THROMBOPLASTIN TIME 39.4 SECONDS (21-34); PROTHROMBIN TIME 11.8 SECONDS (9.7-12.2)
--- NOTE | 2018-12-23 09:34 | CP.PCM.PN ---
Subjective - Date & Time of Evaluation Date of Evaluation: 12/23/18 Time of Evaluation: 09:34 - Subjective Subjective: pt is seen and examined, follow up consult is dictated #[id number] for avf today, hd in am Objective - Vital Signs/Intake and Output Vital Signs (last 24 hours): Temp Pulse Resp BP Pulse Ox 98.8 F 76 20 163/74 H 95 12/23/18 07:10 12/23/18 07:10 12/23/18 07:10 12/23/18 07:10 12/23/18 07:10 Intake and Output: 12/23/18 12/23/18 06:59 18:59 Intake Total 690 Balance 690 - Medications Medications: Current Medications Allopurinol (Zyloprim) 100 mg PO DAILY [facility] Last Admin: 12/22/18 14:33 Dose: 100 mg Amlodipine Besylate (Norvasc) 10 mg PO DAILY [facility] Last Admin: 12/22/18 11:53 Dose: Not Given Epoetin Hardik (Procrit) 10,000 unit [facility] [place] Ferric Sodium Gluconate Complex (Ferrlecit) 125 mg IVPB DAILY [facility] Stop: 12/29/18 10:01 Last Admin: 12/22/18 11:00 Dose: 125 mg Hydralazine HCl (Apresoline) 50 mg PO TID [facility] Last Admin: 12/22/18 17:53 Dose: 50 mg Sodium Chloride (Sodium Chloride 0.9%) 1,000 mls @ 80 mls/hr IV .[id number] [facility] Last Admin: 12/23/18 03:38 Dose: 80 mls/hr Pantoprazole Sodium (Protonix Ec Tab) 40 mg PO DAILY [facility] Last Admin: 12/22/18 11:53 Dose: Not Given Paricalcitol (Zemplar) 2 mcg IV MWF [facility] Pneumococcal Polyvalent Vaccine (Pneumovax 23 Vaccine) 0.5 ml IM .ONCE ONE Stop: 12/23/18 14:01 Sevelamer Carbonate (Renvela) 0.8 gm PO TIDCC [facility] Tramadol HCl (Ultram) 25 mg PO Q8 PRN PRN Reason: Pain, moderate (4-7) Last Admin: 12/23/18 00:43 Dose: 25 mg Vitamin B Complex/Vit C/Folic Acid (Nephro-Ekaterina) 1 tab PO 0800 [facility] Last Admin: 12/22/18 14:30 Dose: 1 tab - Labs Labs: 12/23/18 08:17 12/23/18 08:17 PT 11.8 SECONDS (9.7-12.2) 12/23/18 08:17 INR 1.1 12/23/18 08:17 APTT 39.4 SECONDS (21-34) H 12/23/18 08:17
[2018-12-23] MEDS: Ferric Sodium Gluconat Complex 62.5 mg/5 ml Vial IVPB SCH (10:00)
[2018-12-23] MEDS ORDERED: Sodium Chloride 0.45% 1,000 ML IV SCH (10:15)
[2018-12-23] MEDS: Pantoprazole 40 mg EC Tab PO SCH (10:48)
[2018-12-23] MEDS: Sevelamer Carb 0.8 gm/Packet PO SCH ×2 (10:48→19:43)
[2018-12-23] MEDS: Multivitamin Vitamin B Complex (Nephro-Vite) Tab PO SCH (10:48)
[2018-12-23] MEDS ORDERED: Lidocaine Hydrochloride 0 ML INJ ONE (11:58)
[2018-12-23] MEDS ORDERED: Vancomycin 1 gm/D5W 200 ml 1 GM/200 ML BAG IVPB ONE ×2 (11:59→12:13)
[2018-12-23] MEDS ORDERED: HEPARIN-NS 5,000 UNITS/500 ML 0 UNIT/0 ML BAG IV ONE (11:59)
--- NOTE | 2018-12-23 12:05 | CP.PCM.PN ---
Subjective - Date & Time of Evaluation Date of Evaluation: 12/23/18 Time of Evaluation: 07:00 - Subjective Subjective: chart review vitals- BP has been going high even after dialysis echo and vein mapping labs- hemoglobin improving no report of bleeding had dialysis yesterday patient seen had AV fistula today some anesthesia side effect but is getting better no other complaints aware of scheduled dialys saturday Objective - Vital Signs/Intake and Output Vital Signs (last 24 hours): Temp Pulse Resp BP Pulse Ox 98.8 F 76 20 163/74 H 95 12/23/18 07:10 12/23/18 07:10 12/23/18 07:10 12/23/18 07:10 12/23/18 07:10 Intake and Output: 12/23/18 12/23/18 06:59 18:59 Intake Total 690 Balance 690 - Medications Medications: Current Medications Allopurinol (Zyloprim) 100 mg PO DAILY [facility] Last Admin: 12/23/18 10:49 Dose: Not Given Amlodipine Besylate (Norvasc) 10 mg PO DAILY [facility] Last Admin: 12/23/18 11:35 Dose: 10 mg Epoetin Hardik (Procrit) 10,000 unit SC MWF [facility] Ferric Sodium Gluconate Complex (Ferrlecit) 125 mg IVPB DAILY [facility] Stop: 12/29/18 10:01 Last Admin: 12/23/18 10:00 Dose: Not Given Hydralazine HCl (Apresoline) 50 mg PO QID [facility] Sodium Chloride (Sodium Chloride 0.45%) 1,000 mls @ 42 mls/hr IV .[id number] [facility] Stop: 12/23/18 22:16 Last Admin: 12/23/18 11:36 Dose: 42 mls/hr Pantoprazole Sodium (Protonix Ec Tab) 40 mg PO DAILY [facility] Last Admin: 12/23/18 10:48 Dose: Not Given Paricalcitol (Zemplar) 2 mcg IV MWF [facility] Pneumococcal Polyvalent Vaccine (Pneumovax 23 Vaccine) 0.5 ml IM .ONCE ONE Stop: 12/23/18 14:01 Sevelamer Carbonate (Renvela) 0.8 gm PO TIDCC [facility] Last Admin: 12/23/18 10:48 Dose: Not Given Tramadol HCl (Ultram) 25 mg PO Q8 PRN PRN Reason: Pain, moderate (4-7) Last Admin: 12/23/18 00:43 Dose: 25 mg Vitamin B Complex/Vit C/Folic Acid (Nephro-Ekaterina) 1 tab PO 0800 [facility] Last Admin: 12/23/18 10:48 Dose: Not Given - Labs Labs: 12/23/18 08:17 12/23/18 08:17 PT 11.8 SECONDS (9.7-12.2) 12/23/18 08:17 INR 1.1 12/23/18 08:17 APTT 39.4 SECONDS (21-34) H 12/23/18 08:17 - Constitutional Appears: Well, Non-toxic, No Acute Distress - Head Exam Head Exam: ATRAUMATIC, NORMOCEPHALIC - Eye Exam Eye Exam: Normal appearance. absent: Nystagmus - ENT Exam ENT Exam: Mucous Membranes Moist - Neck Exam Neck Exam: Full ROM. absent: Tenderness - Respiratory Exam Respiratory Exam: Clear to Ausculation Bilateral, NORMAL BREATHING PATTERN - Cardiovascular Exam Cardiovascular Exam: REGULAR RHYTHM, Murmur - GI/Abdominal Exam GI & Abdominal Exam: Soft, Normal Bowel Sounds. absent: Tenderness - Extremities Exam Extremities Exam: Full ROM, Normal Capillary Refill. absent: Joint Swelling, Pedal Edema, Tenderness - Back Exam Back Exam: Full ROM. absent: rash noted - Neurological Exam Neurological Exam: Alert, Awake, Normal Gait, Oriented x3 - Psychiatric Exam Psychiatric exam: Normal Affect, Normal Mood - Skin Skin Exam: Intact (than the surgical sites), Normal Color Assessment and Plan - Assessment and Plan (Free Text) Assessment: Patient admitted for Acute renal failure- on HD- as scheduled Acute Anemia- post transfusion- with some improvement- on IV iron no sign of bleeding Hypertension on monitoring - adjusting doses accordingly Gall Bladder disease polyps- may take care when stable Renal stone . 5mm, on Hydration, Hyperuricemia=resumed meds case discussion with patient and GI prophylaxis SCD
[2018-12-23] MEDS ORDERED: Propofol 10 mg/ml Inj (20 ML) ONE (12:10)
[2018-12-23] MEDS ORDERED: Midazolam 2 MG/2 ML VIAL ONE (12:10)
[2018-12-23] MEDS ORDERED: Lidocaine Hydrochloride 5 ML INJ ONE (12:11)
[2018-12-23] MEDS ORDERED: HEPARIN-NS 5,000 UNITS/500 ML 5,000 UNIT/500 ML BAG IV ONE (12:13)
[2018-12-23] MEDS ORDERED: Papaverine Hydrochloride 30 mg/ml (2ml) ONE (12:14)
--- NOTE | 2018-12-23 12:54 | VASCLAB ---
Date of service: 12/23/2018 PROCEDURE: Upper Extremity Venous Mapping HISTORY: Renal failure PRIORS: None. TECHNIQUE: Bilateral upper extremity, internal jugular, subclavian, axillary, brachial, ulnar, radial, basilic and upper cephalic veins were evaluated. Flow was assessed with color Doppler, compressibility, assessment of phasic flow and augmentation response. Report prepared by DOMINICK Rutledge FINDINGS: RIGHT: 1. Internal Jugular Vein: Compressibility - Fully compressible: Thrombus - None : Flow - Phasic 2. Subclavian Vein: Permcath in area. 3. Axillary Vein: Compressibility - Fully compressible: Thrombus - None 4. Brachial Vein: Compressibility - Fully compressible: Thrombus - None 5. Ulnar Vein:Compressibility - Fully compressible: Thrombus - None 6. Radial Vein:Compressibility - Fully compressible: Thrombus - None 7. Cephalic Vein: Compressibility - Partial: thrombus - Yes 7.1. Partially compressible at the antecubital level. 8. Basilic Vein:Compressibility - Fully compressible: thrombus - None 8.1. Upper Arm:Proximal Diameter: 0.17cm. Mid Diameter: 0.26cm. Distal Diameter: 0.32cm. 8.2. Forearm: Proximal Diameter: 0.14cm. Mid Diameter:0.14cm. Distal Diameter: 0.12cm. LEFT: 1. Internal Jugular Vein: Compressibility - Fully compressible: Thrombus - None : Flow - Phasic 2. Subclavian Vein:Compressibility - Fully compressible: Thrombus - None : Flow - Phasic 3. Axillary Vein: Compressibility - Fully compressible: Thrombus - None 4. Brachial Vein: Compressibility - Fully compressible: Thrombus - None 5. Ulnar Vein:Compressibility - Fully compressible: Thrombus - None 6. Radial Vein:Compressibility - Fully compressible: Thrombus - None 7. Cephalic Vein: Compressibility - Fully compressible: thrombus - None 7.1. Upper Arm: Proximal Diameter: 0.31cm. Mid Diameter: 0.35cm. Distal Diameter: 0.36cm. 7.2. Forearm: Proximal Diameter: 0.19cm. Diminutive caliber distally. 8. Basilic Vein:Compressibility - Fully compressible: thrombus - None 8.1. Upper Arm:Proximal Diameter: 0.18cm. Mid Diameter: 0.20cm. Distal Diameter: 0.12cm. 8.2. Forearm: Diminutive caliber distally. OTHER FINDINGS: Superficial phlebitis of the right cephalic vein at the antecubital level. Findings were reported to BHASKAR Tanner at 9:38 a.m. IMPRESSION: Refer to the above listed measurements for vein size.
--- NOTE | 2018-12-23 13:37 | CARD ---
APPROVED REPORT Date of service: 12/23/2018 EXAM: Two-dimensional and M-mode echocardiogram with Doppler and color Doppler. Other Information Quality : GoodRhythm : INDICATION LV Function:SystolicDiastolic ESRD RISK FACTORS Hypertension Hyperlipidemia 2D DIMENSIONS IVSd1.4 (0.7-1.1cm)LVDd5.0 (3.9-5.9cm) PWd1.8 (0.7-1.1cm)LA Xopcgy62 (18-58mL) LVDs2.8 (2.5-4.0cm)FS (%) 43.1 % LVEF (%)74.1 (>50%)LVEF (Britt's)78.68 % IVC0.00 cm M-Mode DIMENSIONS RVDd2.16 (2.1-3.2cm)Left Atrium (MM)4.73 (2.5-4.0cm) IVSd1.63 (0.7-1.1cm)Aortic Root3.15 (2.2-3.7cm) LVDd5.03 (4.0-5.6cm)Aortic Cusp Exc.1.86 (1.5-2.0cm) PWd1.84 (0.7-1.1cm)FS (%) 44 % LVDs2.82 (2.0-3.8cm)LVEF (%)75 (>50%) Aortic Valve AI P 1/2 [id number] Mitral Valve MV E Prcttlrw92.8cm/sMV A Knvsqoqb553.0cm/sE/A ratio0.7 VXOX152.53 cm/s TDI Lateral E' Peak V4.42cm/sMedial E' Peak V4.93cm/sE/Lateral E'18.1 E/Medial E'16.2 Tricuspid Valve TR Peak Kfdfcfbp441qt/sTR Peak Gr.83zqBbYBCN14hgPv LEFT VENTRICLE The Left Ventricle is mildly dilated. There is mild to moderate concentric left ventricular hypertrophy. The left ventricular systolic function is normal. The left ventricular ejection fraction is within the normal range. There is normal LV segmental wall motion. Transmitral Doppler flow pattern is Grade I-abnormal relaxation pattern. RIGHT VENTRICLE The right ventricle is normal size. The right ventricular systolic function is normal. ATRIA The left atrium is moderately dilated. The right atrium is mildly dilated. There is a catheter/pacemaker lead seen in the right atrium. AORTIC VALVE The aortic valve is normal in structure. There is trace aortic regurgitation. There is no aortic valvular stenosis. MITRAL VALVE The mitral valve is normal in structure. Mitral annular calcification is borderline. Mitral regurgitation is mild. TRICUSPID VALVE The tricuspid valve is normal in structure. There is mild to moderate tricuspid regurgitation. Right ventricular systolic pressure is estimated at - 37 mmHg. There is mild pulmonary hypertension. PULMONIC VALVE The pulmonary valve is normal in structure. There is trace to mild pulmonic valvular regurgitation. GREAT VESSELS The aortic root is normal in size. The IVC is normal in size and collapses >50% with inspiration. PERICARDIAL EFFUSION There is a trace pericardial effusion. <Conclusion> There is mild to moderate concentric left ventricular hypertrophy. The left ventricular systolic function is normal. Grade I diastolic dysfunction-abnormal relaxation pattern. The right ventricular systolic function is normal. The left atrium is moderately dilated. There is a catheter/pacemaker lead seen in the right atrium. There is trace aortic regurgitation. Mitral annular calcification is borderline. Mild mitral regurgitation. There is mild to moderate tricuspid regurgitation. Right ventricular systolic pressure is estimated at - 37 mmHg compatible with mild pulmonary hypertension. There is a trace pericardial effusion.
[2018-12-23] MEDS ORDERED: Pneumococcal 23-Valent Vaccine IM ONE (14:00)
--- NOTE | 2018-12-23 14:14 | US ---
Date of service: 12/23/2018 HISTORY: gallbladder polyps COMPARISON: None. TECHNIQUE: Sonographic evaluation of the abdomen. FINDINGS: LIVER: Measures 14.4 cm. Normal echogenicity of the liver parenchyma. No mass. No intrahepatic bile duct dilatation. GALLBLADDER: Multiple gallbladder polyps, largest 9 mm greatest dimension. Prior ultrasound of 10/27/2017 demonstrated an 11 mm polyp. This is not identified currently. No cholelithiasis. No mural thickening or pericholecystic fluid. COMMON BILE DUCT: Measures 6 mm. No stones. No dilatation. PANCREAS: Unremarkable as visualized. No mass. No ductal dilatation. RIGHT KIDNEY: Measures 7.7cm. Diffusely increased echogenicity. 1.6 cm mid right renal cortical cyst.. LEFT KIDNEY: Measures 8.9cm. Diffusely increased cortical echogenicity. 2 mid renal cortical cysts, 2.0 x 2.1 x 2.7 cm and 2.2 x 2.6 x 2.7 cm. There is also a nonobstructing calculus or calcification in the mid left kidney, 5 mm. SPLEEN: Normal in size and contour. No mass. AORTA: No aneurysmal dilatation. IVC: Unremarkable. OTHER FINDINGS: None. IMPRESSION: Multiple gallbladder polyps, largest 9 mm. Diffusely increased renal cortical echogenicity bilaterally consistent with known chronic renal failure. Bilateral renal cortical cysts. Nonobstructing 5 mm left renal calculus, possibly within the collecting system but not clearly demonstrated.
[2018-12-23] MEDS ORDERED: HYDROmorphone 0.5 mg/0.5 ml ISec IVP PRN ×2 (14:26→14:29)
--- NOTE | 2018-12-23 14:32 | PCM.SURG1 ---
Surgeon's Initial Post Op Note - Surgeon's Notes Surgeon: Dr. Harman Rubber Mold Maker: Danielle PGY2 Type of Anesthesia: General LMA Anesthesia Administered By: Dr. Colunga Pre-Operative Diagnosis: ESRD on HD Operative Findings: appropriate brachial and cephalic vessels, anastomosis without leak, palpable thrill, audible bruit, good radial and ulnar pulses Post-Operative Diagnosis: ESRD on HD Operation Performed: Antecubital brachial cephalic av fistula creation Specimen/Specimens Removed: N/A Estimated Blood Loss: EBL {In ML}: 25 Blood Products Given: N/A Drains Used: No Drains Post-Op Condition: Good Date of Surgery/Procedure: 12/23/18 Time of Surgery/Procedure: 14:32
--- NOTE | 2018-12-24 01:24 | OP ---
PROCEDURE DATE: 12/23/2018 PREOPERATIVE DIAGNOSIS: Renal failure. POSTOPERATIVE DIAGNOSIS: Renal failure. PROCEDURE CARRIED OUT: Brachiobasilic fistula, left elbow. SURGEON: Jose Harman Jr., MD SEGREGATOR: Von Santos DO ANESTHESIOLOGIST: Marito Colunga MD INDICATION: The patient is a 63-year-old woman, diagnosed with renal failure, now requiring catheter based dialysis who was admitted to the hospital in an emergency. She is now seen for placement of access. OPERATIVE FINDINGS: We were able to create an anastomosis between the spatulated end of the cephalic vein at the elbow and the adjacent brachial artery. At the end of the procedure, there was excellent flow to the fistula, and there was a palpable pulse at the wrist. BLOOD LOSS TO THE PROCEDURE: Less than 25 mL. DESCRIPTION OF PROCEDURE: The patient was given general anesthesia and intravenous antibiotics. The vein was marked with ultrasound guidance, and then the vein was dissected free. They were then anastomosed in an end-to-side fashion using loop magnification and heparin anticoagulation to the adjacent brachial artery at the elbow. After completion of the anastomosis and obtaining hemostasis, the wound was closed with a layered closure including nylon sutures on the skin, and the pulse was present at the wrist and good flow to the fistula. The vein was of decent size, measuring almost 5 mm already when we dilated it in the operating room. Operation carried out is brachiocephalic fistula, left elbow. Jose Harman Jr., MD cc: Dr. Samir Osullivan MD
--- NOTE | 2018-12-24 05:06 | PN ---
DATE: 12/23/2018 FOLLOWUP RENAL CONSULTATION LOCATION: The patient is located in room 660, bed A. REQUESTED BY: Destiny Osullivan MD REASON FOR FOLLOWUP: End-stage renal disease, anemia, hypertension; for continuation of hemodialysis. HISTORY OF PRESENT ILLNESS: Mrs. Fernandez is a 63-year-old elderly [place] female, very pleasant with a history of longstanding hypertension, gout, end-stage renal disease who was admitted with weight loss, nausea, poor appetite, worsening renal function, severe weakness, very low H and H, and metabolic acidosis, started on hemodialysis yesterday after PermCath placement. The patient is scheduled for AV fistula placement today. The patient is not in acute distress. Denies any headache, dizziness. Denies any chest pain or palpitation. Denies any fever or cough. No abdominal pain. No nausea, vomiting, or diarrhea. PHYSICAL EXAMINATION: VITAL SIGNS: As follows: Blood pressure this morning 155/77, pulse 63, respirations about 11, temperature 97.8, saturation 100%. Height 5 feet 4 inches, weight is 110 pounds. GENERAL: Mrs. Fernandez is a 63-year-old elderly female, thin built, not in acute distress. HEENT: Pupils normal and reactive to light and accommodation. Conjunctivae pink. Sclerae anicteric. Tongue is moist. Trachea is midline. LUNGS: Symmetric on both sides. Bilateral breath sounds present. Clear to auscultation. CARDIOVASCULAR SYSTEM: Dinosaur at the fifth intercostal space, midclavicular line. S1, S2 audible. No murmur or gallop. ABDOMEN: Normal in appearance. Soft, tympanitic. No guarding. No rigidity. No hepatosplenomegaly. CENTRAL NERVOUS SYSTEM: The patient is alert, awake, oriented x3. Nonfocal neuro examination. Cranial nerves II through XII grossly intact. Sensory and motor system is within normal limits. EXTREMITIES: No cyanosis, no clubbing, no edema. CURRENT MEDICATIONS: Include as follows: Hydralazine 50 mg p.o. 4 times daily, Dilaudid 0.5 mg IV every 4 hours p.r.n., Ferrlecit 125 mg daily, Nephro-Ekaterina 1 tablet daily, Norvasc 10 mg daily, Procrit 10,000 units three times a week, and Protonix 40 mg p.o. daily, Renvela 800 mg p.o. t.i.d., Toradol 30 mg IV every 6 hours p.r.n., tramadol 25 mg p.o. every 8 hours p.r.n., and Zemplar 2 mcg, Zofran 4 mg IV every 6 hours p.r.n., allopurinol 100 mg p.o. daily. LAB DATA: Include as follows. As of 12/23/2018, WBC 5.5, hemoglobin 8.5, hematocrit is 26.1, and platelets 144. PT 11.8 and PTT 39.4. INR 1.1. Sodium 138, potassium 4.1, chloride 104, CO2 of 24, BUN 42, creatinine 4.6, glucose 87, calcium 8.1, phosphorus 3.8, magnesium 1.7. As of 12/21/2018, PTH is 387. IMPRESSION AND PLAN: In summary, Mrs. Fernandez is a 63-year-old elderly, very pleasant [place]ian female with a history of hypertension, gout, end-stage renal disease who was admitted with nausea, poor appetite, weight loss, weakness, low hemoglobin and hematocrit, high blood urea nitrogen and creatinine, low bicarb and high potassium. 1. End-stage renal disease, most likely secondary to hypertensive nephrosclerosis. 2. Anemia secondary to renal failure. 3. Gout. 4. Secondary hyperparathyroidism. The patient underwent PermCath placement on 12/21/2018 and received hemodialysis first time yesterday, and we will continue hemodialysis three times a week, Saturday, Saturday, and Saturday. Continue Procrit. Continue Zemplar. Continue multivitamin and also continue current blood pressure medications, hydralazine and amlodipine. Also continue allopurinol for gout. The patient is scheduled for AV fistula placement this afternoon. We will also check hepatitis B surface antibody. We will follow with you. Thank you for allowing me to participate in your patient's care. Anige Dawson MD
[2018-12-24 06:43] LABS: BASO % 0.3 % (0.0-2.0); EOS % 0.1 % (0.0-4.0); HEMOGLOBIN 7.2 g/dL (11.0-16.0); LYMPH # 0.7 K/uL (1.0-4.3); LYMPH % 15.5 % (20.0-40.0); MEAN CELL VOLUME 91.6 fL (81.0-99.0); MEAN CORPUSCULAR HEMOGLOBIN 30.5 pg (27.0-31.0); MEAN CORPUSCULAR HGB CONC 33.2 g/dL (33.0-37.0); MEAN PLATELET VOLUME 8.4 fL (7.2-11.7); MONO # 0.5 K/uL (0.0-0.8); MONO % 11.5 % (0.0-10.0); NEUT # 3.4 K/uL (1.8-7.0); NEUT % 72.6 % (50.0-75.0); NRBC % 0.1 % (0.0-2.0); RBC 2.37 Mil/uL (3.80-5.20); RED CELL DISTRIBUTION WIDTH 17.6 % (11.5-14.5); WHITE BLOOD COUNT 4.7 K/uL (4.8-10.8)
[2018-12-24] MEDS: Sevelamer Carb 0.8 gm/Packet PO SCH ×2 (08:56→14:36)
[2018-12-24] MEDS ORDERED: EPOETIN ALFA 10,000 UNIT/ML ML SC SCH (09:00)
[2018-12-24] MEDS ORDERED: Epoetin Alfa Dialysis 20000 UNIT/ML Inj IV SCH (09:00)
--- NOTE | 2018-12-24 10:35 | CP.PCM.PN ---
Subjective - Date & Time of Evaluation Date of Evaluation: 12/24/18 Time of Evaluation: 10:33 - Subjective Subjective: good thrill good pulse fu office for suture removal Objective - Vital Signs/Intake and Output Vital Signs (last 24 hours): Temp Pulse Resp BP Pulse Ox 98 F 69 16 144/86 98 12/24/18 09:15 12/24/18 09:15 12/24/18 09:15 12/24/18 10:00 12/24/18 09:15 Intake and Output: 12/24/18 12/24/18 06:59 18:59 Intake Total 660 Output Total 450 Balance 210 - Medications Medications: Current Medications Allopurinol (Zyloprim) 100 mg PO DAILY [facility] Last Admin: 12/23/18 10:49 Dose: Not Given Amlodipine Besylate (Norvasc) 10 mg PO DAILY [facility] Last Admin: 12/23/18 11:35 Dose: 10 mg Epoetin Hardik (Procrit) 20,000 unit IV MWF [facility] Ferric Sodium Gluconate Complex (Ferrlecit) 125 mg IVPB DAILY [facility] Stop: 12/29/18 10:01 Last Admin: 12/23/18 10:00 Dose: Not Given Hydralazine HCl (Apresoline) 50 mg PO QID [facility] Last Admin: 12/23/18 22:05 Dose: 50 mg Hydromorphone HCl (Dilaudid) 0.5 mg IVP Q4H PRN PRN Reason: Pain, severe (8-10) Ketorolac Tromethamine (Toradol) 30 mg IVP Q6 PRN PRN Reason: Pain, moderate (4-7) Last Admin: 12/23/18 21:30 Dose: 30 mg Ondansetron HCl (Zofran Inj) 4 mg IVP Q6H PRN PRN Reason: Nausea/Vomiting Last Admin: 12/23/18 21:30 Dose: 4 mg Pantoprazole Sodium (Protonix Ec Tab) 40 mg PO DAILY [facility] Last Admin: 12/23/18 10:48 Dose: Not Given Paricalcitol (Zemplar) 2 mcg IV MWF [facility] Sevelamer Carbonate (Renvela) 0.8 gm PO TIDCC [facility] Last Admin: 12/24/18 08:56 Dose: 0.8 gm Tramadol HCl (Ultram) 25 mg PO Q8 PRN PRN Reason: Pain, moderate (4-7) Last Admin: 12/23/18 00:43 Dose: 25 mg Vitamin B Complex/Vit C/Folic Acid (Nephro-Ekaterina) 1 tab PO 0800 [facility] Last Admin: 12/23/18 10:48 Dose: Not Given - Labs Labs: 12/24/18 06:35 12/23/18 08:17 PT 11.8 SECONDS (9.7-12.2) 12/23/18 08:17 INR 1.1 12/23/18 08:17 APTT 39.4 SECONDS (21-34) H 12/23/18 08:17
[2018-12-24] MEDS: Ferric Sodium Gluconat Complex 62.5 mg/5 ml Vial IVPB SCH (10:50)
[2018-12-24] MEDS: Paricalcitol 2 mcg/ml Inj IV SCH (10:51)
--- NOTE | 2018-12-24 12:40 | CP.PCM.PN ---
Subjective - Date & Time of Evaluation Date of Evaluation: 12/24/18 Time of Evaluation: 12:38 - Subjective Subjective: Anemic, constipated Awaiting stool OB 9 mm GB polyp + other smaller polyps on sonogram Objective - Vital Signs/Intake and Output Vital Signs (last 24 hours): Temp Pulse Resp BP Pulse Ox 98 F 58 L 16 161/83 H 98 12/24/18 12:05 12/24/18 12:05 12/24/18 12:05 12/24/18 12:05 12/24/18 09:15 Intake and Output: 12/24/18 12/24/18 06:59 18:59 Intake Total 660 0 Output Total 450 Balance 210 0 - Medications Medications: Current Medications Allopurinol (Zyloprim) 100 mg PO DAILY [facility] Last Admin: 12/23/18 10:49 Dose: Not Given Amlodipine Besylate (Norvasc) 10 mg PO DAILY [facility] Last Admin: 12/23/18 11:35 Dose: 10 mg Epoetin Hardik (Procrit) 20,000 unit IV MWF [facility] Last Admin: 12/24/18 10:51 Dose: 20,000 unit Ferric Sodium Gluconate Complex (Ferrlecit) 125 mg IVPB DAILY [facility] Stop: 12/29/18 10:01 Last Admin: 12/24/18 10:50 Dose: 125 mg Hydralazine HCl (Apresoline) 50 mg PO QID [facility] Last Admin: 12/23/18 22:05 Dose: 50 mg Hydromorphone HCl (Dilaudid) 0.5 mg IVP Q4H PRN PRN Reason: Pain, severe (8-10) Ketorolac Tromethamine (Toradol) 30 mg IVP Q6 PRN PRN Reason: Pain, moderate (4-7) Last Admin: 12/23/18 21:30 Dose: 30 mg Ondansetron HCl (Zofran Inj) 4 mg IVP Q6H PRN PRN Reason: Nausea/Vomiting Last Admin: 12/23/18 21:30 Dose: 4 mg Pantoprazole Sodium (Protonix Ec Tab) 40 mg PO DAILY [facility] Last Admin: 12/23/18 10:48 Dose: Not Given Paricalcitol (Zemplar) 2 mcg IV MWF [facility] Last Admin: 12/24/18 10:51 Dose: 2 mcg Sevelamer Carbonate (Renvela) 0.8 gm PO TIDCC [facility] Last Admin: 12/24/18 08:56 Dose: 0.8 gm Tramadol HCl (Ultram) 25 mg PO Q8 PRN PRN Reason: Pain, moderate (4-7) Last Admin: 12/23/18 00:43 Dose: 25 mg Vitamin B Complex/Vit C/Folic Acid (Nephro-Ekaterina) 1 tab PO 0800 [facility] Last Admin: 12/23/18 10:48 Dose: Not Given - Labs Labs: 12/24/18 06:35 12/23/18 08:17 PT 11.8 SECONDS (9.7-12.2) 12/23/18 08:17 INR 1.1 12/23/18 08:17 APTT 39.4 SECONDS (21-34) H 12/23/18 08:17 - Constitutional Appears: Well, Non-toxic, No Acute Distress Assessment and Plan (1) Anemia Assessment & Plan: Likely aneima of chronic disease Check stool OB Outpatient colonoscopy (screening) Status: Acute (2) Acute kidney injury superimposed on chronic kidney disease Assessment & Plan: Dialysis in progress Status: Acute (3) Polyp of gallbladder Assessment & Plan: Should have elective Lap Sylvia, as polyps this size are at increased risk for gallbladder cancer development. Discussed with patient Status: Acute
--- NOTE | 2018-12-24 13:11 | CP.PCM.PN ---
Subjective - Date & Time of Evaluation Date of Evaluation: 12/24/18 Time of Evaluation: 13:10 - Subjective Subjective: pt is seen and examined during hd, s/p 1 uprbc transfusion had a uf 1 lit follow up consult is dictated #[id number] Objective - Vital Signs/Intake and Output Vital Signs (last 24 hours): Temp Pulse Resp BP Pulse Ox 98 F 58 L 16 161/83 H 98 12/24/18 12:05 12/24/18 12:05 12/24/18 12:05 12/24/18 12:05 12/24/18 09:15 Intake and Output: 12/24/18 12/24/18 06:59 18:59 Intake Total 660 0 Output Total 450 Balance 210 0 - Medications Medications: Current Medications Allopurinol (Zyloprim) 100 mg PO DAILY [facility] Last Admin: 12/23/18 10:49 Dose: Not Given Amlodipine Besylate (Norvasc) 10 mg PO DAILY [facility] Last Admin: 12/23/18 11:35 Dose: 10 mg Epoetin Hardik (Procrit) 20,000 unit IV MWF [facility] Last Admin: 12/24/18 10:51 Dose: 20,000 unit Ferric Sodium Gluconate Complex (Ferrlecit) 125 mg IVPB DAILY [facility] Stop: 12/29/18 10:01 Last Admin: 12/24/18 10:50 Dose: 125 mg Hydralazine HCl (Apresoline) 50 mg PO QID [facility] Last Admin: 12/23/18 22:05 Dose: 50 mg Hydromorphone HCl (Dilaudid) 0.5 mg IVP Q4H PRN PRN Reason: Pain, severe (8-10) Ketorolac Tromethamine (Toradol) 30 mg IVP Q6 PRN PRN Reason: Pain, moderate (4-7) Last Admin: 12/23/18 21:30 Dose: 30 mg Ondansetron HCl (Zofran Inj) 4 mg IVP Q6H PRN PRN Reason: Nausea/Vomiting Last Admin: 12/23/18 21:30 Dose: 4 mg Pantoprazole Sodium (Protonix Ec Tab) 40 mg PO DAILY [facility] Last Admin: 12/23/18 10:48 Dose: Not Given Paricalcitol (Zemplar) 2 mcg IV MWF [facility] Last Admin: 12/24/18 10:51 Dose: 2 mcg Sevelamer Carbonate (Renvela) 0.8 gm PO TIDCC [facility] Last Admin: 12/24/18 08:56 Dose: 0.8 gm Tramadol HCl (Ultram) 25 mg PO Q8 PRN PRN Reason: Pain, moderate (4-7) Last Admin: 12/23/18 00:43 Dose: 25 mg Vitamin B Complex/Vit C/Folic Acid (Nephro-Ekaterina) 1 tab PO 0800 [facility] Last Admin: 12/23/18 10:48 Dose: Not Given - Labs Labs: 12/24/18 06:35 12/23/18 08:17 PT 11.8 SECONDS (9.7-12.2) 12/23/18 08:17 INR 1.1 12/23/18 08:17 APTT 39.4 SECONDS (21-34) H 12/23/18 08:17
[2018-12-24] MEDS: Pantoprazole 40 mg EC Tab PO SCH (13:50)
--- NOTE | 2018-12-24 18:27 | CP.PCM.PN ---
Subjective - Date & Time of Evaluation Date of Evaluation: 12/24/18 Time of Evaluation: 01:00 - Subjective Subjective: chart review hemoglobin drop to 7.2 had dialysis today had one unit PRBC BP - high patient seen no complaints discussed findings some constipation does not wanything with anesthesia no more aware of Liver findings oliva darling no complaints Objective - Vital Signs/Intake and Output Vital Signs (last 24 hours): Temp Pulse Resp BP Pulse Ox 99 F 79 20 171/78 H 96 12/24/18 15:00 12/24/18 16:18 12/24/18 15:00 12/24/18 15:00 12/24/18 15:00 Intake and Output: 12/24/18 12/24/18 06:59 18:59 Intake Total 660 345 Output Total 450 Balance 210 345 - Medications Medications: Current Medications Allopurinol (Zyloprim) 100 mg PO DAILY [facility] Last Admin: 12/24/18 13:50 Dose: 100 mg Amlodipine Besylate (Norvasc) 10 mg PO DAILY [facility] Last Admin: 12/24/18 13:49 Dose: 10 mg Epoetin Hardik (Procrit) 20,000 unit IV MWF [facility] Last Admin: 12/24/18 10:51 Dose: 20,000 unit Ferric Sodium Gluconate Complex (Ferrlecit) 125 mg IVPB DAILY [facility] Stop: 12/29/18 10:01 Last Admin: 12/24/18 10:50 Dose: 125 mg Hydralazine HCl (Apresoline) 50 mg PO QID [facility] Last Admin: 12/24/18 17:24 Dose: 50 mg Hydromorphone HCl (Dilaudid) 0.5 mg IVP Q4H PRN PRN Reason: Pain, severe (8-10) Ketorolac Tromethamine (Toradol) 30 mg IVP Q6 PRN PRN Reason: Pain, moderate (4-7) Last Admin: 12/23/18 21:30 Dose: 30 mg Ondansetron HCl (Zofran Inj) 4 mg IVP Q6H PRN PRN Reason: Nausea/Vomiting Last Admin: 12/23/18 21:30 Dose: 4 mg Pantoprazole Sodium (Protonix Ec Tab) 40 mg PO DAILY [facility] Last Admin: 12/24/18 13:50 Dose: 40 mg Paricalcitol (Zemplar) 2 mcg IV MWF [facility] Last Admin: 12/24/18 10:51 Dose: 2 mcg Sevelamer Carbonate (Renvela) 800 mg PO TIDCC [facility] Last Admin: 12/24/18 17:23 Dose: 800 mg Tramadol HCl (Ultram) 25 mg PO Q8 PRN PRN Reason: Pain, moderate (4-7) Last Admin: 12/23/18 00:43 Dose: 25 mg Vitamin B Complex/Vit C/Folic Acid (Nephro-Ekaterina) 1 tab PO 0800 [facility] Last Admin: 12/23/18 10:48 Dose: Not Given - Labs Labs: 12/24/18 06:35 12/23/18 08:17 PT 11.8 SECONDS (9.7-12.2) 12/23/18 08:17 INR 1.1 12/23/18 08:17 APTT 39.4 SECONDS (21-34) H 12/23/18 08:17 - Constitutional Appears: Non-toxic, No Acute Distress - Head Exam Head Exam: ATRAUMATIC, NORMOCEPHALIC - Eye Exam Eye Exam: Normal appearance - ENT Exam ENT Exam: Mucous Membranes Moist - Neck Exam Neck Exam: Full ROM. absent: Tenderness - Respiratory Exam Respiratory Exam: Clear to Ausculation Bilateral, NORMAL BREATHING PATTERN - Cardiovascular Exam Cardiovascular Exam: REGULAR RHYTHM, Murmur - GI/Abdominal Exam GI & Abdominal Exam: Soft, Normal Bowel Sounds. absent: Tenderness - Neurological Exam Neurological Exam: Alert, Awake, Normal Gait, Oriented x3 - Psychiatric Exam Psychiatric exam: Normal Affect, Normal Mood - Skin Skin Exam: Intact, Normal Color Assessment and Plan - Assessment and Plan (Free Text) Assessment: Patient withActe Renal Failure on second hemodialysis, will hav ethird on Saturday awaiting slot Hypertension- noted after dialysis- monitor will adjust meds accordingly Anemia- drop to 7.2-had one unit todau - foolo wup labs GB polyps-discussion- not opting for surgery at this time Renal stone- 5 mm- asymptomatic history of hyperuricemia, on meds and on IVF Constipation- ordered lactulose
[2018-12-24 19:54] LABS: HEMOGLOBIN 8.8 g/dL (11.0-16.0); MEAN PLATELET VOLUME 8.1 fL (7.2-11.7)
[2018-12-24 19:59] LABS: MEAN CORPUSCULAR HEMOGLOBIN 30.1 pg (27.0-31.0); MEAN CORPUSCULAR HGB CONC 33.1 g/dL (33.0-37.0); RBC 2.93 Mil/uL (3.80-5.20); RED CELL DISTRIBUTION WIDTH 16.8 % (11.5-14.5); WHITE BLOOD COUNT 6.1 K/uL (4.8-10.8)
[2018-12-25] MEDS: Tramadol 25 mg PO PRN (04:13)
--- NOTE | 2018-12-25 04:46 | PN ---
DATE: 12/24/2018 FOLLOWUP RENAL CONSULTATION LOCATION: The patient is located in room 660, bed A. REQUESTED BY: Destiny Osullivan MD REASON FOR FOLLOWUP: End-stage renal disease, continuation of hemodialysis. SUBJECTIVE: Mrs. Fernandez is a 63-year-old elderly, very pleasant [place] female with a past medical history significant for longstanding hypertension, gout, end-stage renal disease with progressive renal failure for the last 1 year and not followed with any attenuator, who was admitted with chief complaints of feeling weak, tired, nausea, poor appetite and weight loss about 20 pounds, and the patient was found to have a end-stage renal disease and severe anemia requiring transfusion of 2 units of packed RBC and also initiation of the renal replacement therapy. The patient is being dialyzed through right internal jugular Perm-A-Cath after placing a catheter on Saturday. The patient is feeling better, not in distress. The patient also underwent left upper extremity AV fistula placement yesterday with a good bruit. The patient was seen and examined during hemodialysis. Ultrafiltration goal is about 1 liter. PHYSICAL EXAMINATION: VITAL SIGNS: Blood pressure 164/88, pulse 62, respirations 16, temperature 98, saturation 98%. Height 5 feet 4 inches, weight is 110 pounds. GENERAL: Mrs. Fernandez is a 63-year-old elderly female, thin built, not in distress. HEENT: Pupils normal, reactive to light and accommodation. Conjunctivae pink. Sclerae anicteric. Tongue is moist and trachea is midline. LUNGS: Symmetric on both sides. Bilateral breath sounds present. Clear to auscultation. CVS: [place] at the fifth intercostal space midclavicular line. S1, S2 audible. No murmur or gallop. ABDOMEN: Normal in appearance. Soft, tympanitic. No guarding. No rigidity. No hepatosplenomegaly. HOMICIDE INVESTIGATOR: The patient is alert, awake and oriented x3. Nonfocal neuro examination. Cranial nerves II-XII grossly intact. Sensory and motor system is within normal limits. EXTREMITIES: No cyanosis, no clubbing, no edema. CURRENT MEDICATIONS: Include as follows, hydralazine 50 mg p.o. four times a day, Colace 100 mg p.o. b.i.d., Dilaudid 0.5 mg IV push every 4 hours p.r.n., Ferrlecit 100 mg IV daily, Nephro-Ekaterina 1 tablet daily, amlodipine 10 mg daily, Procrit 20,000 units three times a week, Saturday, Saturday, and Saturday; Protonix 40 mg p.o. daily, Renvela 800 mg p.o. t.i.d., Toradol 30 mg IV every 6 hours p.r.n., Ultram 25 mg p.o. every 8 hours, Zemplar 2 mcg three times a week, Zofran 4 mg IV every 6 hours, allopurinol 100 mg p.o. daily. LABORATORY DATA: Include as follows as of 12/24/2018, this morning, WBC 4.7, hemoglobin 7.2, hematocrit is 21.7, platelets of 123, and repeat CBC post dialysis and transfusion of 1 unit of packed RBC, WBC 6.1, hemoglobin 8.8, hematocrit is 26.6, platelets 126. ASSESSMENT AND PLAN: In summary, Mrs. Fernandez is a 63-year-old elderly female with hypertension, gout, end-stage renal disease, was admitted with worsening renal function, weakness, anemia, metabolic acidosis, hyperkalemia, status post right internal jugular Perm-A-Cath placement on 12/20/2018, status post left upper extremity arteriovenous fistula placement on 12/23/2018. 1. End-stage renal disease. Continue hemodialysis three times a week on Saturday, Saturday and Saturday. 2. Anemia secondary to renal failure. The patient received 1 unit of packed red blood cells. Hemoglobin and hematocrit are stable and improved appropriately after dialysis and transfusion. 3. Gout. 4. Secondary hyperparathyroidism. Continue all her current medication low-sodium diet and also follow up with the social service for outpatient hemodialysis unit placement, awaiting for the insurance approval. Ultrafiltration about 1 liter. Thank you for allowing me to participate in your patient's care Angie Dawson MD
[2018-12-25] MEDS: Multivitamin Vitamin B Complex (Nephro-Vite) Tab PO SCH (09:00)
--- NOTE | 2018-12-25 09:03 | CP.PCM.PN ---
Subjective - Date & Time of Evaluation Date of Evaluation: 12/25/18 Time of Evaluation: 09:02 - Subjective Subjective: pt is seen and examined, follow up consult is dictated #[id number] awaiting for out pt hd unit placement Objective - Vital Signs/Intake and Output Vital Signs (last 24 hours): Temp Pulse Resp BP Pulse Ox 99 F 73 20 162/74 H 96 12/25/18 07:00 12/25/18 07:00 12/25/18 07:00 12/25/18 07:00 12/25/18 07:00 - Medications Medications: Current Medications Allopurinol (Zyloprim) 100 mg PO DAILY [facility] Last Admin: 12/24/18 13:50 Dose: 100 mg Amlodipine Besylate (Norvasc) 10 mg PO DAILY [facility] Last Admin: 12/24/18 13:49 Dose: 10 mg Docusate Sodium (Colace) 100 mg PO BID [facility] Last Admin: 12/24/18 18:57 Dose: 100 mg Epoetin Hardik (Procrit) 20,000 unit IV MWF [facility] Last Admin: 12/24/18 10:51 Dose: 20,000 unit Ferric Sodium Gluconate Complex (Ferrlecit) 125 mg IVPB DAILY [facility] Stop: 12/29/18 10:01 Last Admin: 12/24/18 10:50 Dose: 125 mg Hydralazine HCl (Apresoline) 50 mg PO QID [facility] Last Admin: 12/24/18 21:54 Dose: 50 mg Hydromorphone HCl (Dilaudid) 0.5 mg IVP Q4H PRN PRN Reason: Pain, severe (8-10) Ketorolac Tromethamine (Toradol) 30 mg IVP Q6 PRN PRN Reason: Pain, moderate (4-7) Last Admin: 12/23/18 21:30 Dose: 30 mg Ondansetron HCl (Zofran Inj) 4 mg IVP Q6H PRN PRN Reason: Nausea/Vomiting Last Admin: 12/23/18 21:30 Dose: 4 mg Pantoprazole Sodium (Protonix Ec Tab) 40 mg PO DAILY [facility] Last Admin: 12/24/18 13:50 Dose: 40 mg Paricalcitol (Zemplar) 2 mcg IV MWF [facility] Last Admin: 12/24/18 10:51 Dose: 2 mcg Sevelamer Carbonate (Renvela) 800 mg PO TIDCC [facility] Last Admin: 12/24/18 17:23 Dose: 800 mg Tramadol HCl (Ultram) 25 mg PO Q8 PRN PRN Reason: Pain, moderate (4-7) Last Admin: 12/25/18 04:13 Dose: 25 mg Vitamin B Complex/Vit C/Folic Acid (Nephro-Ekaterina) 1 tab PO 0800 [facility] Last Admin: 12/23/18 10:48 Dose: Not Given - Labs Labs: 12/24/18 19:47 12/23/18 08:17 PT 11.8 SECONDS (9.7-12.2) 12/23/18 08:17 INR 1.1 12/23/18 08:17 APTT 39.4 SECONDS (21-34) H 12/23/18 08:17
[2018-12-25] MEDS: Ferric Sodium Gluconat Complex 62.5 mg/5 ml Vial IVPB SCH (10:25)
--- NOTE | 2018-12-25 12:07 | CP.PCM.PN ---
Subjective - Date & Time of Evaluation Date of Evaluation: 12/25/18 Time of Evaluation: 11:50 - Subjective Subjective: f/u anemia. Denies abd pain, RB, melena, fever, chills, SZ, LOC, VAN, const, diarrhe Objective - Vital Signs/Intake and Output Vital Signs (last 24 hours): Temp Pulse Resp BP Pulse Ox 99 F 75 20 187/86 H 96 12/25/18 07:00 12/25/18 10:23 12/25/18 07:00 12/25/18 10:23 12/25/18 07:00 - Medications Medications: Current Medications Allopurinol (Zyloprim) 100 mg PO DAILY [facility] Last Admin: 12/25/18 10:25 Dose: 100 mg Amlodipine Besylate (Norvasc) 10 mg PO DAILY [facility] Last Admin: 12/25/18 10:25 Dose: 10 mg Docusate Sodium (Colace) 100 mg PO BID [facility] Last Admin: 12/25/18 10:25 Dose: 100 mg Epoetin Hardik (Procrit) 20,000 unit IV MWF [facility] Last Admin: 12/24/18 10:51 Dose: 20,000 unit Ferric Sodium Gluconate Complex (Ferrlecit) 125 mg IVPB DAILY [facility] Stop: 12/29/18 10:01 Last Admin: 12/25/18 10:25 Dose: 125 mg Hydralazine HCl (Apresoline) 100 mg PO TID [facility] Last Admin: 12/25/18 10:45 Dose: 100 mg Hydrochlorothiazide (Microzide) 12.5 mg PO DAILY [facility] Last Admin: 12/25/18 10:52 Dose: 12.5 mg Hydromorphone HCl (Dilaudid) 0.5 mg IVP Q4H PRN PRN Reason: Pain, severe (8-10) Ketorolac Tromethamine (Toradol) 30 mg IVP Q6 PRN PRN Reason: Pain, moderate (4-7) Last Admin: 12/23/18 21:30 Dose: 30 mg Lactulose (Enulose) 20 gm PO DAILY PRN PRN Reason: Constipation Last Admin: 12/25/18 10:52 Dose: 20 gm Ondansetron HCl (Zofran Inj) 4 mg IVP Q6H PRN PRN Reason: Nausea/Vomiting Last Admin: 12/23/18 21:30 Dose: 4 mg Pantoprazole Sodium (Protonix Ec Tab) 40 mg PO DAILY [facility] Last Admin: 12/24/18 13:50 Dose: 40 mg Paricalcitol (Zemplar) 2 mcg IV MWF [facility] Last Admin: 12/24/18 10:51 Dose: 2 mcg Sevelamer Carbonate (Renvela) 800 mg PO TIDCC [facility] Last Admin: 12/25/18 10:25 Dose: 800 mg Tramadol HCl (Ultram) 25 mg PO Q8 PRN PRN Reason: Pain, moderate (4-7) Last Admin: 12/25/18 04:13 Dose: 25 mg Vitamin B Complex/Vit C/Folic Acid (Nephro-Ekaterina) 1 tab PO 0800 [facility] Last Admin: 12/23/18 10:48 Dose: Not Given - Labs Labs: 12/24/18 19:47 12/23/18 08:17 PT 11.8 SECONDS (9.7-12.2) 12/23/18 08:17 INR 1.1 12/23/18 08:17 APTT 39.4 SECONDS (21-34) H 12/23/18 08:17 - Constitutional Appears: Well - Respiratory Exam Respiratory Exam: Clear to Ausculation Bilateral - Cardiovascular Exam Cardiovascular Exam: RRR - GI/Abdominal Exam GI & Abdominal Exam: Soft, Normal Bowel Sounds. absent: Guarding, Tenderness, Mass - Neurological Exam Neurological Exam: Alert, Awake, Oriented x3 Assessment and Plan (1) Anemia Assessment & Plan: Stool OB neg. [facility]. Discussed risk of colon cancer. Status: Acute (2) Polyp of gallbladder Assessment & Plan: Discussed need for cholecystectomy and risk for cancer Status: Acute (3) Acute kidney injury superimposed on chronic kidney disease Assessment & Plan: Had HD. Vein mapping done yest, Status: Acute
[2018-12-25] MEDS: Pantoprazole 40 mg EC Tab PO SCH (13:38)
--- NOTE | 2018-12-25 14:39 | CP.PCM.PN ---
Subjective - Date & Time of Evaluation Date of Evaluation: 12/25/18 Time of Evaluation: 14:38 - Subjective Subjective: findings on US discussed with patient multiple polyps recommend elective cholecystectomy when stable with renal issues Objective - Vital Signs/Intake and Output Vital Signs (last 24 hours): Temp Pulse Resp BP Pulse Ox 99 F 69 20 136/64 96 12/25/18 07:00 12/25/18 13:33 12/25/18 07:00 12/25/18 13:33 12/25/18 07:00 - Medications Medications: Current Medications Allopurinol (Zyloprim) 100 mg PO DAILY [facility] Last Admin: 12/25/18 10:25 Dose: 100 mg Amlodipine Besylate (Norvasc) 10 mg PO DAILY [facility] Last Admin: 12/25/18 10:25 Dose: 10 mg Docusate Sodium (Colace) 100 mg PO BID [facility] Last Admin: 12/25/18 10:25 Dose: 100 mg Epoetin Hardik (Procrit) 20,000 unit IV MWF [facility] Last Admin: 12/24/18 10:51 Dose: 20,000 unit Ferric Sodium Gluconate Complex (Ferrlecit) 125 mg IVPB DAILY [facility] Stop: 12/29/18 10:01 Last Admin: 12/25/18 10:25 Dose: 125 mg Hydralazine HCl (Apresoline) 100 mg PO TID [facility] Last Admin: 12/25/18 13:33 Dose: 100 mg Hydrochlorothiazide (Microzide) 12.5 mg PO DAILY [facility] Last Admin: 12/25/18 10:52 Dose: 12.5 mg Hydromorphone HCl (Dilaudid) 0.5 mg IVP Q4H PRN PRN Reason: Pain, severe (8-10) Ketorolac Tromethamine (Toradol) 30 mg IVP Q6 PRN PRN Reason: Pain, moderate (4-7) Last Admin: 12/23/18 21:30 Dose: 30 mg Lactulose (Enulose) 20 gm PO DAILY PRN PRN Reason: Constipation Last Admin: 12/25/18 10:52 Dose: 20 gm Ondansetron HCl (Zofran Inj) 4 mg IVP Q6H PRN PRN Reason: Nausea/Vomiting Last Admin: 12/23/18 21:30 Dose: 4 mg Pantoprazole Sodium (Protonix Ec Tab) 40 mg PO DAILY [facility] Last Admin: 12/25/18 13:38 Dose: 40 mg Paricalcitol (Zemplar) 2 mcg IV MWF [facility] Last Admin: 12/24/18 10:51 Dose: 2 mcg Sevelamer Carbonate (Renvela) 800 mg PO TIDCC [facility] Last Admin: 12/25/18 13:34 Dose: 800 mg Tramadol HCl (Ultram) 25 mg PO Q8 PRN PRN Reason: Pain, moderate (4-7) Last Admin: 12/25/18 04:13 Dose: 25 mg Vitamin B Complex/Vit C/Folic Acid (Nephro-Ekaterina) 1 tab PO 0800 [facility] Last Admin: 12/25/18 09:00 Dose: 1 tab - Labs Labs: 12/24/18 19:47 12/23/18 08:17 PT 11.8 SECONDS (9.7-12.2) 12/23/18 08:17 INR 1.1 12/23/18 08:17 APTT 39.4 SECONDS (21-34) H 12/23/18 08:17
--- NOTE | 2018-12-25 18:51 | CP.PCM.PN ---
Subjective - Date & Time of Evaluation Date of Evaluation: 12/25/18 Time of Evaluation: 10:00 - Subjective Subjective: chart review vitals Bp on the high side dialysis MWF need one more saturday had Transfusion yesterday while on dialysis patient seen aware of high BP constipation- had lactulose- need one more dose no other coplaints had received call from [place] [facility] will have dialysis tomorrow Objective - Vital Signs/Intake and Output Vital Signs (last 24 hours): Temp Pulse Resp BP Pulse Ox 99.1 F 72 20 156/76 H 96 12/25/18 16:01 12/25/18 16:01 12/25/18 16:01 12/25/18 16:01 12/25/18 16:01 Intake and Output: 12/25/18 12/25/18 06:59 18:59 Intake Total 490 Balance 490 - Medications Medications: Current Medications Acetaminophen (Tylenol 325mg Tab) 650 mg PO Q4 PRN PRN Reason: Pain, moderate (4-7) Allopurinol (Zyloprim) 100 mg PO DAILY [facility] Last Admin: 12/25/18 10:25 Dose: 100 mg Amlodipine Besylate (Norvasc) 10 mg PO DAILY [facility] Last Admin: 12/25/18 10:25 Dose: 10 mg Docusate Sodium (Colace) 100 mg PO BID [facility] Last Admin: 12/25/18 17:26 Dose: 100 mg Epoetin Hardik (Procrit) 20,000 unit IV MWF [facility] Last Admin: 12/24/18 10:51 Dose: 20,000 unit Ferric Sodium Gluconate Complex (Ferrlecit) 125 mg IVPB DAILY [facility] Stop: 12/29/18 10:01 Last Admin: 12/25/18 10:25 Dose: 125 mg Hydralazine HCl (Apresoline) 100 mg PO TID [facility] Last Admin: 12/25/18 17:26 Dose: 100 mg Hydrochlorothiazide (Microzide) 12.5 mg PO DAILY [facility] Last Admin: 12/25/18 10:52 Dose: 12.5 mg Hydromorphone HCl (Dilaudid) 0.5 mg IVP Q4H PRN PRN Reason: Pain, severe (8-10) Ketorolac Tromethamine (Toradol) 30 mg IVP Q6 PRN PRN Reason: Pain, moderate (4-7) Last Admin: 12/23/18 21:30 Dose: 30 mg Lactulose (Enulose) 20 gm PO DAILY PRN PRN Reason: Constipation Last Admin: 12/25/18 10:52 Dose: 20 gm Ondansetron HCl (Zofran Inj) 4 mg IVP Q6H PRN PRN Reason: Nausea/Vomiting Last Admin: 12/23/18 21:30 Dose: 4 mg Pantoprazole Sodium (Protonix Ec Tab) 40 mg PO DAILY [facility] Last Admin: 12/25/18 13:38 Dose: 40 mg Paricalcitol (Zemplar) 2 mcg IV MWF [facility] Last Admin: 12/24/18 10:51 Dose: 2 mcg Sevelamer Carbonate (Renvela) 800 mg PO TIDCC [facility] Last Admin: 12/25/18 17:26 Dose: 800 mg Tramadol HCl (Ultram) 25 mg PO Q8 PRN PRN Reason: Pain, moderate (4-7) Last Admin: 12/25/18 04:13 Dose: 25 mg Vitamin B Complex/Vit C/Folic Acid (Nephro-Ekaterina) 1 tab PO 0800 [facility] Last Admin: 12/25/18 09:00 Dose: 1 tab - Labs Labs: 12/24/18 19:47 12/23/18 08:17 PT 11.8 SECONDS (9.7-12.2) 12/23/18 08:17 INR 1.1 12/23/18 08:17 APTT 39.4 SECONDS (21-34) H 12/23/18 08:17 - Constitutional Appears: Non-toxic, No Acute Distress - Head Exam Head Exam: ATRAUMATIC, NORMOCEPHALIC - Eye Exam Eye Exam: Normal appearance. absent: Nystagmus - ENT Exam ENT Exam: Mucous Membranes Moist - Respiratory Exam Respiratory Exam: Clear to Ausculation Bilateral, NORMAL BREATHING PATTERN - Cardiovascular Exam Cardiovascular Exam: REGULAR RHYTHM, Murmur - Extremities Exam Extremities Exam: Full ROM, Normal Capillary Refill, Normal Inspection. absent: Joint Swelling, Pedal Edema, Tenderness - Back Exam Back Exam: Full ROM. absent: rash noted - Neurological Exam Neurological Exam: Alert, Awake, Normal Gait, Oriented x3 - Psychiatric Exam Psychiatric exam: Normal Affect, Normal Mood - Skin Skin Exam: Intact ( other than the surgical sites which are good looking ), Normal Color Assessment and Plan - Assessment and Plan (Free Text) Assessment: Patent with Acute Renal failure on dailysis- got slot - will have another dialysis tomorrow plan fr home Anemia- with seconfd transfusion on iron IV- current hemoglobin improved at 8.8 Hypertension- will adjust dose continue monitoring and adjust accordingly Hyperuricemia- continue meds aat renal dose plan for home after dialysis patient aware of condition and plan
--- NOTE | 2018-12-26 01:37 | PN ---
DATE: 12/25/2018 FOLLOWUP RENAL CONSULTATION LOCATION: The patient is located in room 660, bed A. REQUESTED BY: Destiny Osullivan MD REASON FOR FOLLOWUP: End-stage renal disease, continuation of hemodialysis. HISTORY OF PRESENT ILLNESS: Mrs. Fernandez is a 63-year-old elderly [place] female with a past medical history significant for longstanding hypertension, gout, chronic kidney disease who was admitted with worsening renal function, severe weakness, nausea, poor appetite, and weight loss about 20 pounds. The patient was found to have end-stage renal disease with progressive deterioration of the renal function for the last one year and not followed with any patcher helper as an outpatient since she was admitted last year to the [facility]. The patient was started on hemodialysis after PermCath placement on Saturday and underwent left upper extremity AV fistula on Saturday. The patient is feeling better, not in acute distress. Denies any headache, dizziness. Denies any chest pain or palpitation. Denies any fever or cough. The patient claims that she has a good appetite. PHYSICAL EXAMINATION: VITAL SIGNS: Physical exam as follows: This morning, blood pressure 162/74, pulse 73, respirations 20, temperature 99, saturation 96%. Height 5 feet 4 inches, weight is 110 pounds. GENERAL: Mrs. Fernandez is a 63-year-old elderly [place] female, moderately built, moderately nourished, not in distress. HEENT: Pupils normal and reactive to light and accommodation. Conjunctivae pink. Sclerae anicteric. Tongue is moist. Trachea is midline. LUNGS: Symmetric on both sides. Bilateral breath sounds present. Clear to auscultation. CARDIOVASCULAR SYSTEM: [place] at the fifth intercostal space, midclavicular line. S1, S2 audible. No murmur or gallop. ABDOMEN: Normal in appearance. Soft, tympanitic. No guarding. No rigidity. No hepatosplenomegaly. CENTRAL NERVOUS SYSTEM: The patient is alert, awake, oriented x3. Nonfocal neuro examination. Cranial nerves II through XII grossly intact. Sensory and motor system is within normal limits. EXTREMITIES: No cyanosis, no clubbing, no edema. CURRENT MEDICATIONS: Include as follows: Hydralazine 50 mg every 6 hours, Colace 100 mg p.o. b.i.d., Dilaudid 0.5 mg IV every 4 hours p.r.n., lactulose 20 g p.o. daily, Ferrlecit 125 mg IV daily, hydrochlorothiazide 12.5 mg daily, Nephro-Ekaterina 1 tablet daily, amlodipine 10 mg daily, Procrit 12,000 units three times a week, Protonix 40 mg p.o. daily, Renvela 800 mg p.o. t.i.d., tramadol 25 mg p.o. every 8 hours, Zemplar 2 mcg a week, Zofran 4 mg IV every 6 hours, allopurinol 100 mg p.o. daily. LABORATORY DATA: No new labs are available. Stool for occult blood is negative and hepatitis B surface antibody is positive. Hepatitis B surface antibody titers 19. IMPRESSION AND PLAN: In summary, Mrs. Fernandez is a 63-year-old elderly female with hypertension, gout, end-stage renal disease, on hemodialysis three times a week, Saturday, Saturday, and Saturday, started during this admission on Saturday. 1. End-stage renal disease secondary to hypertensive nephrosclerosis. 2. Gout. 3. Anemia secondary to renal failure. 4. Secondary hyperparathyroidism. The patient is awaiting for outpatient hemodialysis unit approval. Continue her antihypertensive medications. I agree to increase hydralazine to 100 mg p.o. every 8 hours, and continue Norvasc and continue hydrochlorothiazide 12.5 mg p.o. daily. Continue Procrit, Nephro-Ekaterina. We will follow with you. Thank you for allowing me to participate in your patient's care. We will follow with the social service in a.m. Angie Dawson MD
[2018-12-26] MEDS: Multivitamin Vitamin B Complex (Nephro-Vite) Tab PO SCH ×2 (08:49)
[2018-12-26] MEDS ORDERED: EPOETIN ALFA 4,000 UNIT/ML ML Dialysis IV SCH (09:00)
--- NOTE | 2018-12-26 09:37 | CP.PCM.PN ---
Subjective - Date & Time of Evaluation Date of Evaluation: 12/26/18 Time of Evaluation: 09:35 - Subjective Subjective: pt is seen and examined by me during hd, follow up consult is dictated #[id number] pt is accepted to [facility] [place] , starting tomorrow at 9.30 am, //sat please advised pt go to center 1/2 hr earlier tomorrow Objective - Vital Signs/Intake and Output Vital Signs (last 24 hours): Temp Pulse Resp BP Pulse Ox 98 F 66 20 157/77 H 96 12/25/18 23:00 12/26/18 04:10 12/25/18 23:00 12/25/18 23:00 12/25/18 23:00 - Medications Medications: Current Medications Acetaminophen (Tylenol 325mg Tab) 650 mg PO Q4 PRN PRN Reason: Pain, moderate (4-7) Last Admin: 12/25/18 21:45 Dose: 650 mg Allopurinol (Zyloprim) 100 mg PO DAILY [facility] Last Admin: 12/25/18 10:25 Dose: 100 mg Amlodipine Besylate (Norvasc) 10 mg PO DAILY [facility] Last Admin: 12/25/18 10:25 Dose: 10 mg Docusate Sodium (Colace) 100 mg PO BID [facility] Last Admin: 12/25/18 17:26 Dose: 100 mg Epoetin Hardik (Procrit) 12,000 unit IV MWF [facility] Ferric Sodium Gluconate Complex (Ferrlecit) 125 mg IVPB DAILY [facility] Stop: 12/29/18 10:01 Last Admin: 12/25/18 10:25 Dose: 125 mg Hydralazine HCl (Apresoline) 100 mg PO TID [facility] Last Admin: 12/25/18 17:26 Dose: 100 mg Hydrochlorothiazide (Microzide) 12.5 mg PO DAILY [facility] Last Admin: 12/25/18 10:52 Dose: 12.5 mg Hydromorphone HCl (Dilaudid) 0.5 mg IVP Q4H PRN PRN Reason: Pain, severe (8-10) Lactulose (Enulose) 20 gm PO DAILY PRN PRN Reason: Constipation Last Admin: 12/25/18 10:52 Dose: 20 gm Ondansetron HCl (Zofran Inj) 4 mg IVP Q6H PRN PRN Reason: Nausea/Vomiting Last Admin: 12/23/18 21:30 Dose: 4 mg Pantoprazole Sodium (Protonix Ec Tab) 40 mg PO DAILY [facility] Last Admin: 12/25/18 13:38 Dose: 40 mg Paricalcitol (Zemplar) 2 mcg IV MWF [facility] Last Admin: 12/24/18 10:51 Dose: 2 mcg Sevelamer Carbonate (Renvela) 800 mg PO TIDCC [facility] Last Admin: 12/26/18 08:49 Dose: 800 mg Tramadol HCl (Ultram) 25 mg PO Q8 PRN PRN Reason: Pain, moderate (4-7) Last Admin: 12/25/18 04:13 Dose: 25 mg Vitamin B Complex/Vit C/Folic Acid (Nephro-Ekaterina) 1 tab PO 0800 [facility] Last Admin: 12/26/18 08:49 Dose: 1 tab - Labs Labs: 12/24/18 19:47 12/23/18 08:17 PT 11.8 SECONDS (9.7-12.2) 12/23/18 08:17 INR 1.1 12/23/18 08:17 APTT 39.4 SECONDS (21-34) H 12/23/18 08:17
[2018-12-26 09:56] LABS: HEMOGLOBIN 9.1 g/dL (11.0-16.0); MEAN CORPUSCULAR HEMOGLOBIN 30.5 pg (27.0-31.0); MEAN CORPUSCULAR HGB CONC 33.2 g/dL (33.0-37.0); MEAN PLATELET VOLUME 8.7 fL (7.2-11.7); RBC 2.99 Mil/uL (3.80-5.20); RED CELL DISTRIBUTION WIDTH 17.7 % (11.5-14.5); WHITE BLOOD COUNT 5.9 K/uL (4.8-10.8)
[2018-12-26 10:05] LABS: CALCIUM 8.7 mg/dl (8.6-10.4)
[2018-12-26] MEDS: Paricalcitol 2 mcg/ml Inj IV SCH (10:25)
[2018-12-26] MEDS: Ferric Sodium Gluconat Complex 62.5 mg/5 ml Vial IVPB SCH (11:33)
--- NOTE | 2018-12-26 12:22 | CP.PCM.PN ---
Subjective - Date & Time of Evaluation Date of Evaluation: 12/26/18 Time of Evaluation: 12:00 - Subjective Subjective: [facility] hemoglobin [facility] 9 patient seen no complaints aware of condition got a slot and schedule tomorrow no other complaints discussion with Nesha Objective - Vital Signs/Intake and Output Vital Signs (last 24 hours): Temp Pulse Resp BP Pulse Ox 98.3 F 69 18 156/80 H 100 12/26/18 09:35 12/26/18 09:35 12/26/18 09:35 12/26/18 11:35 12/26/18 09:35 - Medications Medications: Current Medications Acetaminophen (Tylenol 325mg Tab) 650 mg PO Q4 PRN PRN Reason: Pain, moderate (4-7) Last Admin: 12/25/18 21:45 Dose: 650 mg Allopurinol (Zyloprim) 100 mg PO DAILY [facility] Last Admin: 12/25/18 10:25 Dose: 100 mg Amlodipine Besylate (Norvasc) 10 mg PO DAILY [facility] Last Admin: 12/25/18 10:25 Dose: 10 mg Docusate Sodium (Colace) 100 mg PO BID [facility] Last Admin: 12/26/18 11:25 Dose: Not Given Epoetin Hardik (Procrit) 12,000 unit IV MWF [facility] Last Admin: 12/26/18 10:29 Dose: 12,000 unit Ferric Sodium Gluconate Complex (Ferrlecit) 125 mg IVPB DAILY [facility] Stop: 12/29/18 10:01 Last Admin: 12/26/18 11:33 Dose: 125 mg Hydralazine HCl (Apresoline) 100 mg PO TID [facility] Last Admin: 12/26/18 11:25 Dose: Not Given Hydrochlorothiazide (Microzide) 12.5 mg PO DAILY [facility] Last Admin: 12/25/18 10:52 Dose: 12.5 mg Hydromorphone HCl (Dilaudid) 0.5 mg IVP Q4H PRN PRN Reason: Pain, severe (8-10) Lactulose (Enulose) 20 gm PO DAILY PRN PRN Reason: Constipation Last Admin: 12/25/18 10:52 Dose: 20 gm Ondansetron HCl (Zofran Inj) 4 mg IVP Q6H PRN PRN Reason: Nausea/Vomiting Last Admin: 12/23/18 21:30 Dose: 4 mg Pantoprazole Sodium (Protonix Ec Tab) 40 mg PO DAILY [facility] Last Admin: 12/25/18 13:38 Dose: 40 mg Paricalcitol (Zemplar) 2 mcg IV MWF [facility] Last Admin: 12/26/18 10:25 Dose: 2 mcg Sevelamer Carbonate (Renvela) 800 mg PO TIDCC [facility] Last Admin: 12/26/18 08:49 Dose: 800 mg Tramadol HCl (Ultram) 25 mg PO Q8 PRN PRN Reason: Pain, moderate (4-7) Last Admin: 12/25/18 04:13 Dose: 25 mg Vitamin B Complex/Vit C/Folic Acid (Nephro-Ekaterina) 1 tab PO 0800 [facility] Last Admin: 12/26/18 08:49 Dose: 1 tab - Labs Labs: 12/26/18 09:45 12/26/18 09:45 PT 11.8 SECONDS (9.7-12.2) 12/23/18 08:17 INR 1.1 12/23/18 08:17 APTT 39.4 SECONDS (21-34) H 12/23/18 08:17 - Constitutional Appears: Non-toxic, No Acute Distress - Head Exam Head Exam: ATRAUMATIC, NORMOCEPHALIC - Eye Exam Eye Exam: Normal appearance - ENT Exam ENT Exam: Mucous Membranes Moist - Neck Exam Neck Exam: Full ROM - Respiratory Exam Respiratory Exam: Clear to Ausculation Bilateral, NORMAL BREATHING PATTERN - Cardiovascular Exam Cardiovascular Exam: REGULAR RHYTHM, Murmur - GI/Abdominal Exam GI & Abdominal Exam: Soft, Normal Bowel Sounds. absent: Tenderness - Extremities Exam Extremities Exam: Full ROM, Joint Swelling, Normal Inspection, Tenderness. absent: Pedal Edema - Neurological Exam Neurological Exam: Alert, Awake, Normal Gait, Oriented x3 - Psychiatric Exam Psychiatric exam: Normal Affect, Normal Mood - Skin Skin Exam: Intact, Normal Color Assessment and Plan - Assessment and Plan (Free Text) Assessment: Patient with Acute Renal failure- getting 3rd dialysis got schedule Anemia- improved on iron Hypertension- adjusting dose discussion with patient and Nesha quintero much aware of condition an dplan plan for home follow up after January 05
--- NOTE | 2018-12-26 12:25 | CP.PCM.DIS ---
Provider - Provider Date of Admission: 12/20/18 20:55 Attending physician: Destiny Jones MD Consults: 12/20/18 20:38 Physician Consult Routine Comment: Consulting Provider: Jose Harman Jr. Consulting Physician: Jose Harman Jr. Reason for Consult: per Dr. Jones For CR elevation 12/20/18 21:54 Vascular Surgery Stat Comment: Consulting Provider: Jose Harman Jr. Physician Instructions: Reason For Exam: renal failure 12/21/18 08:00 Nephrology Consult Routine Comment: Consulting Provider: Angie Dawson Consulting Physician: Angie Dawson Reason for Consult: renal failure 12/22/18 11:15 Physician Consult Routine Comment: Consulting Provider: Hugo Potter Consulting Physician: Hugo Potter Reason for Consult: severe anemia Time Spent in preparation of Discharge (in minutes): 30 Hospital Course - Lab Results Lab Results: Most Recent Lab Values WBC 5.9 K/uL (4.8-10.8) 12/26/18 09:45 RBC 2.99 Mil/uL (3.80-5.20) L 12/26/18 09:45 Hgb 9.1 g/dL (11.0-16.0) L 12/26/18 09:45 Hct 27.5 % (34.0-47.0) L 12/26/18 09:45 MCV 92.0 fL (81.0-99.0) 12/26/18 09:45 MCH 30.5 pg (27.0-31.0) 12/26/18 09:45 MCHC 33.2 g/dL (33.0-37.0) 12/26/18 09:45 RDW 17.7 % (11.5-14.5) H 12/26/18 09:45 Plt Count 131 K/uL (130-400) 12/26/18 09:45 MPV 8.7 fL (7.2-11.7) 12/26/18 09:45 Neut % (Auto) 72.6 % (50.0-75.0) 12/24/18 06:35 Lymph % (Auto) 15.5 % (20.0-40.0) L 12/24/18 06:35 [place] % (Auto) 11.5 % (0.0-10.0) H 12/24/18 06:35 Eos % (Auto) 0.1 % (0.0-4.0) 12/24/18 06:35 Baso % (Auto) 0.3 % (0.0-2.0) 12/24/18 06:35 Neut # (Auto) 3.4 K/uL (1.8-7.0) 12/24/18 06:35 Lymph # (Auto) 0.7 K/uL (1.0-4.3) L 12/24/18 06:35 [place] # (Auto) 0.5 K/uL (0.0-0.8) 12/24/18 06:35 Eos # (Auto) 0.0 K/uL (0.0-0.7) 12/24/18 06:35 Baso # (Auto) 0.0 K/uL (0.0-0.2) 12/24/18 06:35 Differential Comment 12/24/18 06:35 PT 11.8 SECONDS (9.7-12.2) 12/23/18 08:17 INR 1.1 12/23/18 08:17 APTT 39.4 SECONDS (21-34) H 12/23/18 08:17 Sodium 134 mmol/L (132-148) 12/26/18 09:45 Potassium 3.7 mmol/L (3.6-5.2) 12/26/18 09:45 Chloride 99 mmol/L (98-107) 12/26/18 09:45 Carbon Dioxide 26 mmol/L (22-30) 12/26/18 09:45 Anion Gap 13 (10-20) 12/26/18 09:45 BUN 29 mg/dL (7-17) H 12/26/18 09:45 Creatinine 5.4 mg/dL (0.7-1.2) H 12/26/18 09:45 Est GFR ( Amer) 10 12/26/18 09:45 Est GFR (Non-Af Amer) 8 12/26/18 09:45 Random Glucose 140 mg/dL (65-105) H D 12/26/18 09:45 Hemoglobin A1c 5.2 % (4.2-6.5) 12/21/18 10:30 Uric Acid 13.8 mg/dL (2.2-7.5) H 12/21/18 10:30 Calcium 8.7 mg/dl (8.6-10.4) 12/26/18 09:45 Phosphorus 3.8 mg/dL (2.5-4.5) 12/23/18 08:17 Magnesium 1.7 mg/dL (1.6-2.3) 12/23/18 08:17 Iron 64 ug/dL (37-170) 12/21/18 10:30 TIBC 248 ug/dL (250-450) L 12/21/18 10:30 % Saturation 26 (20-55) 12/21/18 10:30 Ferritin 212.0 ng/mL 12/21/18 10:30 Total Bilirubin 0.4 mg/dL (0.2-1.3) 12/21/18 10:30 AST 37 U/L (14-36) H D 12/21/18 10:30 ALT 21 U/L (9-52) 12/21/18 10:30 Alkaline Phosphatase 68 U/L (38-126) 12/21/18 10:30 Total Protein 7.4 g/dL (6.3-8.3) 12/21/18 10:30 Albumin 4.1 g/dL (3.5-5.0) 12/21/18 10:30 Globulin 3.3 gm/dL (2.2-3.9) 12/21/18 10:30 Albumin/Globulin Ratio 1.2 (1.0-2.1) 12/21/18 10:30 Triglycerides 74 mg/dL (0-149) 12/21/18 10:30 Cholesterol 127 mg/dL (0-199) 12/21/18 10:30 LDL Cholesterol Direct 49 mg/dL (0-129) 12/21/18 10:30 HDL Cholesterol 57 mg/dL (30-70) 12/21/18 10:30 TSH 3rd Generation 1.61 mIU/L (0.46-4.68) 12/21/18 10:30 PTH Intact Whole Molec 387 pg/mL (14-64) H 12/21/18 10:30 Urine Color Red (YELLOW) 12/21/18 03:55 Urine Clarity Clear (Clear) 12/21/18 03:55 Urine pH 5.0 (5.0-8.0) 12/21/18 03:55 Ur Specific [place] 1.008 (1.003-1.030) 12/21/18 03:55 Urine Protein 2+ mg/dL (NEGATIVE) H 12/21/18 03:55 Urine Glucose (UA) 1+ mg/dL (Normal) 12/21/18 03:55 Urine Ketones Negative mg/dL (NEGATIVE) 12/21/18 03:55 Urine Blood Negative (NEGATIVE) 12/21/18 03:55 Urine Nitrate Negative (NEGATIVE) 12/21/18 03:55 Urine Bilirubin Negative (NEGATIVE) 12/21/18 03:55 Urine Urobilinogen Normal mg/dL (0.2-1.0) 12/21/18 03:55 Ur Leukocyte Esterase Neg Jef/uL (Negative) 12/21/18 03:55 Urine WBC (Auto) 2 /hpf (0-5) 12/21/18 03:55 Urine RBC (Auto) 1 /hpf (0-3) 12/21/18 03:55 Ur Squamous Epith Cells 2 /hpf (0-5) 12/21/18 03:55 Urine Bacteria Rare (<OCC) 12/21/18 03:55 Stool Occult Blood Negative (NEGATIVE) 12/25/18 07:09 Hepatitis A IgM Ab Negative (NEGATIVE) 12/21/18 10:30 Hep Bs Antigen Negative (NEGATIVE) 12/21/18 10:30 Hep Bs Antibody Positive (NEGATIVE) 12/24/18 06:35 Hep Bs Antibody, Quant 19 mIU/mL (>or=10) 12/23/18 08:17 Hep B Core IgM Ab Negative (NEGATIVE) 12/21/18 10:30 Hepatitis C Antibody Negative (NEGATIVE) 12/21/18 10:30 Blood Type B POSITIVE 12/24/18 09:36 Blood Type Confirm B POSITIVE 12/20/18 20:26 Antibody Screen Positive 12/24/18 09:36 Antibody Identification Anti M 12/20/18 19:55 Antigen Identification M Antigen - NEGATIVE 12/20/18 19:55 - Hospital Course Hospital Course: patient had blood test- creatinine 0f 7 and was subsequently admitted for furtehr evaluation and managment - patient had lines, had emergency dialysis, had hemoglobin of 6 had transfusion- that slowly improved and worsened- and had another transfusion- improved- atient had 3rd dialysis and a schedule in [place]- BP became unstable needed to adjust medications Discharge Exam - Head Exam Head Exam: ATRAUMATIC, NORMOCEPHALIC - Eye Exam Eye Exam: Normal appearance - ENT Exam ENT Exam: Mucous Membranes Moist - Respiratory Exam Respiratory Exam: Clear to PA & Lateral, NORMAL BREATHING PATTERN - Cardiovascular Exam Cardiovascular Exam: REGULAR RHYTHM - GI/Abdominal Exam GI & Abdominal Exam: Normal Bowel Sounds, Soft - Back Exam Back exam: absent: rash noted - Neurological Exam Neurological exam: Alert, Normal Gait, Oriented x3 - Psychiatric Exam Psychiatric exam: Normal Affect, Normal Mood - Skin Skin Exam: Intact, Normal Color Discharge Plan - Follow Up Plan Condition: STABLE Disposition: HOME/ ROUTINE Referrals: Destiny Jones MD [Medical Doctor] -
[2018-12-26 13:14] VITALS: BP 166/84; PULSE 63; RESP 20; O2SAT 98
[2018-12-26] MEDS: Pantoprazole 40 mg EC Tab PO SCH (13:43)
[2018-12-26 16:18] VITALS: TEMP 98.3
--- NOTE | 2018-12-26 23:24 | PN ---
DATE: 12/26/2018 The patient is located in room 660, bed A. REQUESTED BY: Destiny Osullivan MD REASON FOR FOLLOWUP: End-stage renal disease, continuation of hemodialysis. SUBJECTIVE: Mrs. Fernandez is a 63-year-old elderly [place] female with a past medical history significant for longstanding hypertension, gout, end-stage renal disease, was admitted with weakness and poor appetite, weight loss and nausea, and started on hemodialysis after the PermCath placement on last week Saturday. The patient is on hemodialysis three times a week. The patient is feeling better status post transfusion of 3 units of packed RBCs since admission. The patient is not in acute distress, complains of slight swelling and ecchymosis at the left AV fistula site. No chest pain. No nausea, no vomiting. No shortness of breath. No edema of the legs. PHYSICAL EXAMINATION: VITAL SIGNS: This morning as follows: Blood pressure 161/81, pulse 69, respiration 18, temperature 98.3, saturation 100%. Height 5 feet 4 inches, weight is 110 pounds. GENERAL: Mrs. Fernandez is a 63-year-old elderly female, moderately built, moderately nourished, not in acute distress. HEENT: Pupils normal and reactive to light and accommodation. Conjunctivae pink. Sclerae anicteric. Tongue is moist and trachea is midline. LUNGS: Symmetric on both sides. Bilateral breath sounds present. Clear to auscultation. CARDIOVASCULAR SYSTEM: [place] at the fifth intercostal space, midclavicular line. S1, S2 audible. No murmur or gallop. ABDOMEN: Normal in appearance. Soft, tympanitic. No guarding. No rigidity. No hepatosplenomegaly. CENTRAL NERVOUS SYSTEM: The patient is alert, awake, oriented x3. Nonfocal neuro examination. Cranial nerves II-XII grossly intact. Sensory and motor system is within normal limits. EXTREMITIES: No cyanosis, no clubbing, no edema. MEDICATIONS: Include as follows: Tylenol and allopurinol 100 mg p.o. daily, amlodipine 10 mg daily, Colace 100 mg p.o. b.i.d., Epogen 12,000 units three times a week and ferrous gluconate 125 mg daily, hydralazine 100 mg p.o. t.i.d., hydrochlorothiazide 12.5 mg daily and Dilaudid p.r.n. and lactulose 20 g p.o. daily p.r.n. and Zofran 4 mg IV every 6 hours p.r.n., Protonix 40 mg p.o. daily and Zemplar 2 mcg 3 times a week and Renvela 18 mg p.o. t.i.d. and tramadol and Nephro-Ekaterina 1 tablet daily. LABORATORY DATA: Include as follows: As of 12/26/2018, WBC 5.9, hemoglobin 9.1, hematocrit is 27.5, platelets 131. Sodium 134, potassium 3.7, chloride 99, CO2 of 26, BUN 29, creatinine 5.4 and glucose is 140, calcium 8.7. ASSESSMENT AND PLAN: In summary, Mrs. Fernandez is a 63-year-old elderly female, moderately built, moderately nourished with a history of hypertension, gout, end-stage renal disease, started on hemodialysis. 1. End-stage renal disease. Continue hemodialysis three times a week. The patient was accepted to outpatient hemodialysis unit in [facility] starting from tomorrow at 9:30. The patient agreed for the plan. 2. Hypertension. Blood pressure is stable. Continue hydralazine and amlodipine and hydrochlorothiazide. 3. Gout. Continue allopurinol. 4. Anemia secondary to renal failure. Hemoglobin and hematocrit improving. Continue Procrit during dialysis and continue Ferrlecit and also Nephro-Ekaterina. 5. Secondary hyperparathyroidism. Continue Zemplar three times a week with dialysis. We will follow with you. Thank you for allowing me to participate in your patient's care. The patient can be discharged from the renal standpoint after the dialysis today. The patient was seen and examined during dialysis and ultrafiltration goal is about 0.5 to 1 liter as tolerated. Angie Dawson MD
== END 2018-12-26 16:54 | disposition home or self-care (01) | DRG 674 ==
LOC: C.ER 19:08 → C.9E 20:55 → C.6T 21:14 → C.9E 21:24 → C.6T 21:39
PROVIDERS: ADMIT Internal Medicine; ATTEND Internal Medicine
PROC: 30233N1 Transfusion of Nonautologous Red Blood Cells into Peripheral Vein, Percutaneous Approach (ICD-10-PCS; 2018-12-20)
PROC: 02HV33Z Insertion of Infusion Device into Superior Vena Cava, Percutaneous Approach (ICD-10-PCS; 2018-12-21)
PROC: 5A1D70Z Performance of Urinary Filtration, Intermittent, Less than 6 Hours Per Day (ICD-10-PCS; 2018-12-22)
PROC: 03180ZD Bypass Left Brachial Artery to Upper Arm Vein, Open Approach (ICD-10-PCS; principal; 2018-12-23 11:30)
DX: N17.9 Acute kidney failure, unspecified (principal); I12.0 Hypertensive chronic kidney disease with stage 5 chronic kidney disease or end stage renal disease; E87.2 Acidosis; N18.6 End stage renal disease; N25.81 Secondary hyperparathyroidism of renal origin; D63.1 Anemia in chronic kidney disease; M10.9 Gout, unspecified; K82.4 Cholesterolosis of gallbladder; Z99.2 Dependence on renal dialysis; E87.5 Hyperkalemia; E78.00 Pure hypercholesterolemia, unspecified; Z88.0 Allergy status to penicillin; R63.4 Abnormal weight loss; F32.9 Major depressive disorder, single episode, unspecified